=== PATIENT | female | born 1985 | race Caucasian/White ===

== ENCOUNTER 2018-03-14 10:04 | Outpatient (CLI) | payer OTHER, SELFPAY ==
[2018-03-15 10:20] LABS: Hepatitis C Ab w Rflx HCV PCR Negative (NEGAT)
[2018-03-15 10:28] LABS: Hepatitis B Surface Ag Negative (NEGAT)
[2018-03-15 10:42] LABS: HIV-1/2 Ag & Ab Screen Negative (NEGAT)
[2018-03-15 12:20] LABS: Syphilis Serology (RPR) Negative (Negative)
== END 2018-03-14 10:24 ==
PROVIDERS: PCP Nurse Practitioner Family; Visit Provider Obstetrics & Gynecology
DX: Z11.3 Encounter for screening for infections with a predominantly sexual mode of transmission (principal); Z11.4 Encounter for screening for human immunodeficiency virus [HIV]; Z11.59 Encounter for screening for other viral diseases; Z01.84 Encounter for antibody response examination
CPT/HCPCS: 36415; 86803; 87340; 87389; 86592

== ENCOUNTER 2018-03-14 11:11 | Outpatient (REF) | payer OTHER, SELFPAY ==
[2018-03-15 14:36] LABS: Chlamydia Result Negative; GC Result Negative; Specimen Description CERVIX
== END 2018-03-14 11:31 ==
LOC: LBN 11:11
PROVIDERS: PCP Nurse Practitioner Family; Visit Provider Obstetrics & Gynecology
DX: Z11.3 Encounter for screening for infections with a predominantly sexual mode of transmission (principal)
CPT/HCPCS: 87491; 87591

== ENCOUNTER 2018-04-03 11:50 | Outpatient (REF) | payer OTHER, SELFPAY ==
--- NOTE | 2018-04-03 11:15 | ENDOMET_PTH ---
PATIENT: Rahel Gilliam LOC: [facility] U#:[id number] AGE/SX: 32/F ROOM: RE04/03/[address]: Tramaine Oconnor MD : [id number] BED: DIS: 04/03/2018 SPEC #: [id number] RECD: 04/03/18 12:51 STATUS: [place] REQ #: [id number] SEAN: 04/03/18 11:[address]: Tramaine Oconnor DEPT: Surgical Specimen RECD BY: Blanca Montgomery ENTERED: 04/03/18 12:52 SP TYPE: Endomet OTHR DR: Yana Freeman APRN Tissues: 1 - ENDOMETRIUM BX/CURRETTE Procedures: GROSS AND MICRO LEVEL 4 Comments: [id number]
== END 2018-04-03 12:10 ==
LOC: LBN 11:50
PROVIDERS: PCP Nurse Practitioner Family; Visit Provider Obstetrics & Gynecology
DX: N85.8 Other specified noninflammatory disorders of uterus (principal); N93.8 Other specified abnormal uterine and vaginal bleeding
CPT/HCPCS: 88305

== ENCOUNTER 2019-01-18 10:31 | Outpatient (CLI) | payer OTHER, SELFPAY ==
[2019-01-18 13:36] LABS: ALT 24 U/L (14-59); AST 17 U/L (15-37); Albumin 3.2 g/dL (3.4-5.0); Alkaline Phosphatase 124 U/L (46-116); Anion Gap 11.2 mmol/L (3-11); BUN 9 mg/dL (7-18); Bilirubin, Total 0.3 mg/dL (0.2-1.0); CO2 25.8 mmol/L (21.0-32.0); CREATININE 0.73 mg/dL (0.55-1.02); Calcium 8.5 mg/dL (8.5-10.1); Chloride 106 mmol/L (98-107); Glucose 98 mg/dL (70-100); Potassium 4.2 mmol/L (3.5-5.1); Sodium 143 mmol/L (136-145); Total Protein 6.7 g/dL (6.4-8.2)
[2019-01-18 14:03] LABS: Hemoglobin A1C 5.6 % (4.5-6.2)
== END 2019-01-18 10:51 ==
PROVIDERS: PCP Nurse Practitioner Family; Visit Provider Nurse Practitioner Family
DX: E28.2 Polycystic ovarian syndrome (principal); Z68.43 Body mass index [BMI] 50.0-59.9, adult; F10.10 Alcohol abuse, uncomplicated
CPT/HCPCS: 36415; 80053; 83036

== ENCOUNTER 2019-02-23 15:55 | Emergency (ER) | payer OTHER, SELFPAY ==
[2019-02-23 15:57] VITALS: BP 148/80; PULSE 88; RESP 18; TEMP 36.8; O2SAT 98
--- NOTE | 2019-02-23 16:47 | W.ED.GENAD ---
Discharge Plan Disposition Patient Disposition: HOME Discharge Details Chief Complaint: EarProblem Clinical Impression: Embedded earring of left ear Primary Care Provider: Yana Freeman ED Provider: Domingo Alvarez Home Meds and New Rx's Prescriptions: New doxycycline hyclate 100 mg tablet 100 mg PO BID Qty: 9 RF: 0 Continued citalopram 20 mg tablet 20 mg PO DAILY Qty: 90 RF: 3 bupropion HCl [Wellbutrin XL] 150 mg tablet extended release 24 hr 150 mg PO QAM Qty: 90 RF: 3 ibuprofen 200 MG tablet 200 mg PO Q6H PRN RF: 0 norethindrone-ethin estradiol 0.4-35 mg-mcg tablet 1 tab PO DAILY Qty: 84 RF: 3 acetaminophen [Tylenol] 325 MG tablet 650 mg PO Q4H PRN PRNRF: 0 Discharge Instructions Additional Instructions: Please take antibiotic as prescribed. You received a dose today in the emergency department. Your next dose is tomorrow morning. Please take ibuprofen for pain. Please contact your primary care physician to arrange follow-up. Return to the ER for any worsening or new concerning symptoms. Referrals: Yana Freeman, DISABILITY COUNSELOR [Primary Care Provider] - Medical Decision Making 33-year-old female here with earring stud embedded in left earlobe. Patient provided verbal consent for hearing removal. Procedure note: Foreign body removal left earlobe Indication: Embedded foreign body with inflammation Consent: verbal Anesth: local - 2 ml lidocaine 1% injected Note: Area prepped with Betadine. Area anesthetized with local injection of lidocaine. A tiny incision was made with 15 blade over the anterior earring hole. Earring pushed through hole and removed intact. Complications: none Plan to treat with short course of antibiotic given recent discharge and to treat any early infection. Usual and customary discharge instructions were provided. HPI General Mode of arrival: ambulatory. Date/Time Provider Initiated Documentation: 02/23/19 16:01. Limitations to Documentation: no limitations. Information obtained by: patient. HPI Narrative: 33-year-old female presents with chief complaint of left earlobe embedded earring. Patient notes that she had her ear pierced about 6 weeks ago and woke up yesterday morning with earring embedded within her ear. She has had some discharge from the earring hole. No associated fever. Area is moderately painful. Related Data Home Medications Medication Instructions Recorded Confirmed ibuprofen 200 mg PO Q6H PRN tab-cap 02/27/15 02/23/19 acetaminophen [Tylenol] 650 mg PO Q4H PRN PRN tab 01/03/17 02/23/19 bupropion HCl 150 mg 24 hr tablet, 150 mg PO QAM #90 tab-cap 01/18/19 02/23/19 extended release citalopram 20 mg tablet 20 mg PO DAILY #90 tab-cap 01/18/19 02/23/19 norethindrone-ethinyl estradiol 1 tab PO DAILY #84 tab 02/07/19 02/23/19 0.4 mg-35 mcg tablet doxycycline hyclate 100 mg PO BID #9 tab 02/23/19 Previous Rx's Medication Instructions Recorded acetaminophen [Tylenol] 650 mg PO Q4H PRN PRN tab 01/03/17 bupropion HCl 150 mg 24 hr tablet, 150 mg PO QAM #90 tab-cap 01/18/19 extended release citalopram 20 mg tablet 20 mg PO DAILY #90 tab-cap 01/18/19 norethindrone-ethinyl estradiol 1 tab PO DAILY #84 tab 02/07/19 0.4 mg-35 mcg tablet doxycycline hyclate 100 mg PO BID #9 tab 02/23/19 Allergies Allergy/AdvReac Type Severity Reaction Status Date / Time penicillin V Allergy Mild Swelling, Verified 02/23/19 16:02 rash,itchy face especially around eyes. General Stated Complaint: EarProblem FRANCIE: 4 Review of Systems Constitutional Constitutional: Denies fever(s) ENT Ears, Nose, Mouth, and Throat: Reports as per [facility] Medical History ADHD (attention deficit hyperactivity disorder), combined type (Chronic) 01/19/2018 Psychiatry consult (Dr. Lucero) Alcohol consumption binge drinking (Chronic 04/28/15) BMI 50.0-59.9, adult (Chronic 10/28/14) Depression (Chronic 02/13/16) Side effects with sertraline Hepatic steatosis (Chronic 08/14/13) IFG (impaired fasting glucose) (Acute) PCOS (polycystic ovarian syndrome) (Chronic 10/28/14) Rx with Metformin. 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 [employer] Pets and animals: Yes Pets and animals: cat(s) Sexually active: Yes Current gender identity: female What type of physical activity do you participate in: regular exercise Duration: 15-30 minutes/day Frequency: 1-2 times per week Seatbelt use: sometimes 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 machines: No Working smoke detector in home: Yes Fire extinguisher in home: Yes Carbon monox detector in home: Yes Firearms in home: No Do you feel safe in your relationship?: Yes Female Reproductive History Menstrual control method: none History History 0 Para Hx # Term Pregnancies Multiple births Hx # Pregnancies Ectopic pregnancies AB induced Hx Number of Living Children AB spontaneous Exam Const General: cooperative and no acute distress HENMT Ears: other (Left earlobe with embedded earring, mildly swollen and tender) Mouth: moist mucous membranes Skin General skin exam: no rashes or lesions noted Course Vital Signs Vital signs: Vital Signs Temperature 36.8 C 02/23/19 15:57 Pulse 88 02/23/19 15:57 Respiratory Rate 18 02/23/19 15:57 Blood Pressure 148/80 H 02/23/19 15:57 Pulse Oximetry 98 02/23/19 15:57 Temperature 36.8 C 02/23/19 15:57 Temperature Source Skin 02/23/19 15:57 Pulse 88 02/23/19 15:57 Respiratory Rate 18 02/23/19 15:57 Respiratory Effort 02/23/19 16:02 Blood Pressure 148/80 H 02/23/19 15:57 Blood Pressure Position Sitting 02/23/19 15:57 Pulse Oximetry 98 02/23/19 15:57 Oxygen Delivery Method Room Air 02/23/19 15:57 Oxygen Flow Rate 0 02/23/19 15:57 Pain Level 3 02/23/19 16:38
[2019-02-23] MEDS: Doxycycline Hyclate 100 MG CAP PO (16:51)
== END 2019-02-23 17:02 | disposition home or self-care (01) ==
PROVIDERS: Emergency Provider Student in an Organized Health Care Education/Training Program; PCP Nurse Practitioner Family
DX: T16.2XXA Foreign body in left ear, initial encounter (principal)
CPT/HCPCS: 10120

== ENCOUNTER 2019-08-12 07:22 | Emergency (ER) | payer OTHER, SELFPAY ==
[2019-08-12 07:27] VITALS: BP 150/88; PULSE 136; RESP 20; TEMP 38.1; O2SAT 97
--- NOTE | 2019-08-12 07:30 | DI.CT_ITS ---
EXAM: CT ABDOMEN PELVIS W CLINICAL HISTORY: lower back and abdominal pain, fever TECHNIQUE: Imaging Protocol: Axial computed tomography images with coronal and sagittal reformatted images were created and reviewed CONTRAST MATERIAL: Intravenous: Omnipaque 350 Contrast volume:125 mL Oral: No COMPARISON: No exams were available for comparison FINDINGS: ABDOMEN: Lung Bases: Normal where visualized. Liver: Normal density. No measurable mass. Portal, Superior Mesenteric, and Splenic Veins: Unremarkable. Gallbladder and Biliary Tract: No radiodense calculus or dilation. Pancreas: Normal density, no abnormal calcifications or inflammatory process. Spleen: Normal. Adrenals: No masses seen. Kidneys: Normal size, contour and axis. No radiodense stones or obstructive uropathy. No masses seen. Abdominal Aorta: Abdominal portion non-dilated. Bowel: No obstruction or bowel wall thickening. Appendix is unremarkable. Peritoneal Cavity: No ascites, collection or mesenteric inflammatory response. Lymph Nodes: Within normal limits. Bones: Grade 3 spondylolysis of L5 on S1 which appears to be fused. Soft Tissues: Unremarkable. PELVIS: Bladder: Symmetric distention, no gross wall thickening. Reproductive Organs: Unremarkable as visualized. Lymph Nodes: Within normal limits. Bones: See above. IMPRESSION: Unremarkable CT scan of the abdomen and pelvis. RADIATION DOSE DELIVERED: Total DLP DATA REPOSITORY: All CT scans at this facility are submitted to the National Radiology Data Registry (NRDR) Dose Index Registry (DIR) with the [employer] (ACR). RADIATION OPTIMIZATION: All CT scans at this facility use at least one of these dose optimization te chniques: automated exposure control; mA and/or kV adjustment per patient size (includes targeted exa ms where dose is matched to clinical indication); or iterative reconstruction.
--- NOTE | 2019-08-12 07:34 | W.ED.GENAD ---
Discharge Plan Disposition Patient Disposition: HOME Condition: Improving Discharge Details Chief Complaint: Fever Clinical Impression: Fever, UTI (urinary tract infection), Herpes genitalis Primary Care Provider: Yana Freeman ED Provider: Larissa Nguyen Home Meds and New Rx's Prescriptions: New sulfamethoxazole-trimethoprim [Bactrim DS] 800-160 mg tablet 1 tab PO BID 14 Days Qty: 28 RF: 0 valacyclovir 1 gram tablet 1,000 mg PO BID 10 Days Qty: 20 RF: 0 Continued acetaminophen [Tylenol] 325 MG tablet 650 mg PO Q4H PRN PRNRF: 0 Discontinued ciprofloxacin HCl 250 mg tablet 250 mg PO RF: 0 Discharge Instructions Instructions: Genital Herpes Simplex (ED), Urinary Tract Infection in Women (ED), Fever in Adults (ED) Additional Instructions: Stop taking your Cipro. Drink plenty of fluids and get plenty of rest. Alternate tylenol and motrin as needed and directed for pain. Take the Bactrim and valacyclovir until finished. Call your primary care doctor and PROFESSOR OF JOURNALISM tomorrow to schedule follow-up appointments within the next 1 to 2 weeks. Return immediately to the emergency department if you develop any worsening or new concerning symptoms such as persistent fevers, worsening pain, change in bowel or bladder function. Medical Decision Making <Donn Carreno MD - Last Filed: 08/12/19 07:44> 33 yo female with hx of adhd, pcos, depression, who comes in with 2-3 days of burning with urination and low back pain and fever and sore throat. Denies any dyspnea, cough, chest pain, rashes, IVDU. She states that [facility] started her on cipro yesterday but she continues to have the lower back and some lower abdominal pain so came here. She is in no distress on arrival though is noted to have a fever and is tachycardic with dry membranes. She has erythema of posterior pharynx, midline uvula, no pain over hyoid or restricted neck movements. She does have bilateral cva tenderness, clear lungs, no murmurs or rashes on exam. Has mild lower abdominal discomfort on exam without guarding or rebound. Suspect pyeo but given worsening despite cuipro and evidence of dehydration will tx with fluids and obtain labs and image the abd/pelvis to eval for kidney stone among other pathology. No respiratory symptoms so doubt entities such as pna, flu, or covid19 pt signed out to oncoming provider pending lab and imaging results Differential Diagnosis Differential Diagnosis: pyelo, uti, kidney stone Medical Records Medical records reviewed: Yes I reviewed the patient's medical records. <Larissa Nguyen DO - Last Filed: 08/12/19 13:27> 0800 --please see Dr. Carreno's note for initial presentation, exam and plan. Case endorsed to follow-up on labs and imaging results and final disposition. Labs and imaging reviewed. Rapid strep negative. No signs of peritonsillar abscess and does not appear c/w exudative strep pharyngitis on exam. White blood cell count 11. Urinalysis notes 20-50 WBCs with trace leukocyte esterase and moderate epithelial cells. Culture done. CT negative for acute abdominal findings but notes grade 3 spondylolisthesis of L5 and S1. She is complaining of lower back pain which in the setting of fever and urinary symptoms will plan to treat for pyelonephritis. She did also complain of vaginal and rectal pain. Upon exam, appears consistent with herpetic ulcers noted to labia minora and perianal. Herpes PCR ordered. Do not suspect cervicitis or PID as she has no complaint of vaginal discharge or abdominal pain. She states she has been sexually active with 3 different partners of which she used protection with 2. She was offered cervical exam but declines stating she will follow-up with her PROFESSOR OF JOURNALISM for this if needed. She is advised to obtain additional testing if needed including HIV, syphilis and cervical cultures if indicated. She has taken 3 doses of Cipro, without any change in urinary symptoms, will switch to Bactrim for possible pyelonephritis. We will also treat herpes with antivirals and a syringe of lidocaine jelly was applied here. Patient was afebrile and her pain significantly improved. She was able to ambulate without difficulty. She had no focal deficits or cauda equina symptoms. Suspect her back pain could be due to either UTI/pyelonephritis or genital herpes with referred neuropathic pain. She was aware of her spondylolithesis and usually does not have pain with this. History and presentation not c/w epidural abscess. She is advised to follow-up with her primary care doctor and PROFESSOR OF JOURNALISM for reevaluation. Usual and customary return precautions given prior to discharge. After discharge, mom called who is a nurse questioning if she should be concerned about going to work with pt having a fever. Pt presentation did not appear c/w covid but in setting of fever and sore throat, an outpatient test was ordered. Medical Records Medical records reviewed: Yes I reviewed the patient's medical records. Imaging Data Radiologic Study: Radiologist's impression: CT Abdomen And Pelvis With Contrast Exam date and time: 08/12/2019 7:41 AM Age: 33 years old Clinical indication: Abdominal pain; Other: Abdominal and low back pain TECHNIQUE: Imaging protocol: Computed tomography of the abdomen and pelvis with intravenous contrast. COMPARISON: US PELVIS TRANSVAG 06/18/2013 3:57 PM FINDINGS: Liver: Normal. No mass. Gallbladder and bile ducts: Normal. No calcified stones. No ductal dilation. Pancreas: Normal. No ductal dilation. Spleen: Normal. No splenomegaly. Adrenals: Normal. No mass. Kidneys and ureters: Normal. No hydronephrosis. Stomach and bowel: Unremarkable. No obstruction. No mucosal thickening. Appendix: Normal appendix . Intraperitoneal space: Unremarkable. No free air. No significant fluid collection. Vasculature: Unremarkable. No abdominal aortic aneurysm. Lymph nodes: Unremarkable. No enlarged lymph nodes. Bladder: Unremarkable as visualized. Reproductive: Unremarkable as visualized. Bones/joints: Grade 3 spondylolisthesis of L5 on S1 . It appears fused. Series 7, image 95. Clinical correlation is recommended. Soft tissues: Unremarkable. IMPRESSION: 1. Normal appendix . 2. Grade 3 spondylolisthesis of L5 on S1 . It appears fused. Series 7, image 95. Clinical correlation is recommended. HPI <Donn Carreno MD - Last Filed: 08/12/19 07:44> General Mode of arrival: ambulatory. Date/Time Provider Initiated Documentation: 08/12/19 07:24. Limitations to Documentation: no limitations. Information obtained by: patient. History of Present Illness 33 year old F presents to the emergency department with the chief complaint of back pain and dysuria, described as moderate, Patient started experiencing this day(s) (2) and it has been constant. No relieving factors improve symptom(s), Patient notes fever/chills. Related Data Home Medications Medication Instructions Recorded Confirmed acetaminophen [Tylenol] 650 mg PO Q4H PRN PRN tab 01/03/17 08/12/19 sulfamethoxazole-trimethoprim 1 tab PO BID 14 Days #28 tab 08/12/19 [Bactrim DS] valacyclovir 1,000 mg PO BID 10 Days #20 tab 08/12/19 Previous Rx's Medication Instructions Recorded acetaminophen [Tylenol] 650 mg PO Q4H PRN PRN tab 01/03/17 sulfamethoxazole-trimethoprim 1 tab PO BID 14 Days #28 tab 08/12/19 [Bactrim DS] valacyclovir 1,000 mg PO BID 10 Days #20 tab 08/12/19 Allergies Allergy/AdvReac Type Severity Reaction Status Date / Time penicillin V Allergy Mild Swelling, Verified 08/12/19 07:41 rash,itchy face especially around eyes. General Stated Complaint: Fever FRANCIE: 3 Review of Systems <Donn Carreno MD - Last Filed: 08/12/19 07:44> All systems reviewed & are unremarkable except as noted in HPI and below Constitutional Constitutional: Denies weakness ENT Ears, Nose, Mouth, and Throat: Denies change in voice Cardiovascular Cardiovascular: Denies chest pain and Denies dyspnea Respiratory Respiratory: Denies cough and Denies dyspnea Gastrointestinal Gastrointestinal: Denies vomiting Neurologic Neurologic: Denies weakness Psychiatric Psychiatric: Denies depression PFSH <Donn Carreno MD - Last Filed: 08/12/19 07:44> Social History Smoking/Tobacco Use Status: Never Alcohol Intake: current Alcohol Intake frequency: a few times a week Drug use: Never Substance use type: does not use Adopted: No Caregiver/Support person: No Foster care: No 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 Pets and animals: Yes Pets and animals: cat(s) Sexually active: Yes Current gender identity: female What type of physical activity do you participate in: regular exercise Duration: 15-30 minutes/day Frequency: 1-2 times per week Seatbelt use: sometimes Drive intox or ride w/intox 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: No Working smoke detector in home: Yes Fire extinguisher in home: Yes Carbon monox detector in home: Yes Firearms in home: No Do you feel safe at home: Yes Do you feel safe in your relationship?: Yes Female Reproductive History Menstrual control method: none History History 0 Para Hx # Term Pregnancies Multiple births Hx # Pregnancies Ectopic pregnancies AB induced Hx Number of Living Children AB spontaneous Exam <Donn Carreno MD - Last Filed: 08/12/19 07:44> Const General: no acute distress Orientation: alert HENMT Head: normal to inspection Ears: external ears normal General nose exam: external nose normal Mouth: mucous membranes dry Eyes General: appearance normal, both eyes and all related structures Neck Neck: normal visual inspection Resp Effort & Inspection: normal respiratory effort and able to speak in complete sentences Cardio Jugular venous pressure: no JVD Rate: tachycardic GI Palpation: soft Skin General skin exam: no rashes or lesions noted Neuro General: patient alert and patient oriented x3 Extrem General: normal to inspection Psych Mental Status: mental status grossly normal Course <Donn Carreno MD - Last Filed: 08/12/19 07:44> Vital Signs Vital signs: Vital Signs Temperature 38.1 C H 08/12/19 07:27 Pulse 136 H 08/12/19 07:27 Respiratory Rate 20 08/12/19 07:27 Blood Pressure 150/88 H 08/12/19 07:27 Pulse Oximetry 97 08/12/19 07:27 Temperature 38.1 C H 08/12/19 07:27 Temperature Source Oral 08/12/19 07:27 Pulse 136 H 08/12/19 07:27 Respiratory Rate 20 08/12/19 07:27 Blood Pressure 150/88 H 08/12/19 07:27 Pulse Oximetry 97 08/12/19 07:27 Oxygen Delivery Method Room Air 08/12/19 07:27 Oxygen Flow Rate 0 08/12/19 07:27 Sign Out <Donn Carreno MD - Last Filed: 08/12/19 07:44> Sign Out Data: Sign Out Comment: follow up on labs and imaging results Last updated by Donn Carreno MD at 08/12/19 07:45
[2019-08-12 08:00] LABS: Lactate 1.4 mmol/L (0.6-1.4)
[2019-08-12] MEDS: Normal Saline 1,000 ML 1000 ML IV (08:00)
[2019-08-12 08:02] LABS: Abs Immature Grans 0.02 k/cumm (0.0-0.09); Absolute Basophil Count 0.02 k/cumm (0.0-0.2); Absolute Monocyte Count 0.75 k/cumm (0.11-0.7); Absolute Neutrophil Count 8.34 k/cumm (1.2-6.7); Basophils % 0.2; Eosinophils % 1.4; HCT 46.2 % (36.0-46.0); HGB 14.9 g/dL (12.0-15.5); Immature Grans % 0.2 %; Lymphocytes % 15.9; Mean Corp. HGB Concentration 32.3 g/dL (32.0-36.0); Mean Corpuscular Hemoglobin 24.6 pg (27.0-33.0); Mean Corpuscular Volume 76.4 fL (80-95); Mean Platelet Volume 10.7 fL (8.0-11.0); Monocytes % 6.8; Neutrophils % 75.5; Platelet Count 203 x1000/uL (130-400); RBC 6.05 m/cumm (4.00-5.20); RBC Distribution Width 14.8 % (11.7-14.6); White Blood Cell Count 11.04 k/cumm (4.4-10.8)
[2019-08-12 08:12] LABS: Absolute Eosinophil Count 0.15 k/cumm (0.0-0.7); Absolute Lymphocyte Count 1.76 k/cumm (1.2-3.4)
[2019-08-12 08:15] LABS: PTT Activated 26.5 sec (21.0-31.4); Prothrombin Time 9.9 sec (9.3-11.0)
[2019-08-12 08:21] LABS: Diff Comment RBC Morph Reviewed; Microcytosis 1+
[2019-08-12 08:26] LABS: ALT 72 U/L (14-59); AST 59 U/L (15-37); Albumin 3.6 g/dL (3.4-5.0); Alkaline Phosphatase 173 U/L (46-116); Anion Gap 8.3 mmol/L (3-11); BUN 9 mg/dL (7-18); Bilirubin, Direct 0.09 mg/dL (0.00-0.20); Bilirubin, Total 0.5 mg/dL (0.2-1.0); CO2 26.7 mmol/L (21.0-32.0); CREATININE 0.94 mg/dL (0.55-1.02); Calcium 8.6 mg/dL (8.5-10.1); Chloride 101 mmol/L (98-107); Glucose 122 mg/dL (74-106); Lipase 69 U/L (73-393); Magnesium 1.6 mg/dL (1.8-2.4); Potassium 3.7 mmol/L (3.5-5.1); Sodium 136 mmol/L (136-145); Total Protein 7.8 g/dL (6.4-8.2)
[2019-08-12 09:14] LABS: Bilirubin Negative (Negative); Blood Negative (Negative); Clarity Clear (Clear); Glucose Negative (Negative); Ketones Negative (Negative); Leukocyte Esterase Trace (Negative); Nitrite Negative (Negative); Urobilinogen 0.2 EU/dL (Up TO 0.2)
[2019-08-12] MEDS: Acetaminophen 500 MG TAB 1000 MG PO (09:23)
[2019-08-12] MEDS: Ketorolac 30 MG/ML VIAL IVP (09:23)
[2019-08-12 09:47] LABS: Bacteria Few HPF (Negative); C & S Indicated? C&S Done As Ordered; Casts Negative LPF (Negative); Crystals Negative HPF (Negative); Epithelial Cells Moderate HPF (Negative); Mucus Negative (Negative); RBC 0-2 HPF (0-2); WBC 20-50 HPF (0-5)
[2019-08-12] MEDS: Omnipaque 350 MG/ML 50 ML BTL IJ (10:01)
[2019-08-12] MEDS: Omnipaque 350 MG/ML 100 ML BTL IJ (10:01)
[2019-08-12] MEDS: Normal Saline - Diluent 50 ML VIAL IV (10:02)
[2019-08-12] MEDS: Normal Saline Flush 10 ML SYR IVP (10:02)
[2019-08-12 10:15] VITALS: BP 123/76; PULSE 103; RESP 17; TEMP 37.2; O2SAT 98
--- NOTE | 2019-08-12 10:51 | DI.VRAD_ITS ---
PROCEDURE INFORMATION: Exam: CT Abdomen And Pelvis With Contrast Exam date and time: 08/12/2019 7:41 AM Age: 33 years old Clinical indication: Abdominal pain; Other: Abdominal and low back pain TECHNIQUE: Imaging protocol: Computed tomography of the abdomen and pelvis with intravenous contrast. COMPARISON: US PELVIS TRANSVAG 06/18/2013 3:57 PM FINDINGS: Liver: Normal. No mass. Gallbladder and bile ducts: Normal. No calcified stones. No ductal dilation. Pancreas: Normal. No ductal dilation. Spleen: Normal. No splenomegaly. Adrenals: Normal. No mass. Kidneys and ureters: Normal. No hydronephrosis. Stomach and bowel: Unremarkable. No obstruction. No mucosal thickening. Appendix: Normal appendix . Intraperitoneal space: Unremarkable. No free air. No significant fluid collection. Vasculature: Unremarkable. No abdominal aortic aneurysm. Lymph nodes: Unremarkable. No enlarged lymph nodes. Bladder: Unremarkable as visualized. Reproductive: Unremarkable as visualized. Bones/joints: Grade 3 spondylolisthesis of L5 on S1 . It appears fused. Series 7, image 95. Clinical correlation is recommended. Soft tissues: Unremarkable. IMPRESSION: 1. Normal appendix . 2. Grade 3 spondylolisthesis of L5 on S1 . It appears fused. Series 7, image 95. Clinical correlation is recommended. Dictated and Authenticated by: Irvin Broderick MD. Ordering:DEMETRIO Pop MD
[2019-08-12] MEDS: valACYclovir 1,000 MG TAB 1000 MG PO (11:34)
[2019-08-12] MEDS: Sulfameth/Trimeth DS TAB 1 TAB PO (11:34)
[2019-08-12] MEDS: Lidocaine 2% Jelly 6 ML SYR TP (11:34)
[2019-08-14 01:23] LABS: HSV 1 PCR, Blood Negative (Negative); HSV 2 PCR, Blood Negative (Negative)
== END 2019-08-12 11:46 | disposition home or self-care (01) ==
PROVIDERS: Emergency Medicine; Emergency Provider Physician Assistant; PCP Nurse Practitioner Family
DX: N10 Acute pyelonephritis (principal); A60.09 Herpesviral infection of other urogenital tract; J02.9 Acute pharyngitis, unspecified; R50.9 Fever, unspecified
CPT/HCPCS: 36415; 80053; 81025; 83690; 87040; 87529; 87880; 96361; 96374; 99285; 74177; 81003; 81015; 82248; 83605; 83735; 85025; 85610; 85730; 87081; 87086; 99284; J1885; J3490; Q9967

== ENCOUNTER 2019-08-14 08:43 | Outpatient (CLI) | payer OTHER, SELFPAY ==
[2019-08-15 15:23] LABS: COVID-19 RT-PCR Result NEGATIVE (Negative)
== END 2019-08-14 09:03 ==
PROVIDERS: PCP Nurse Practitioner Family; Visit Provider Physician Assistant
DX: Z11.59 Encounter for screening for other viral diseases (principal)
CPT/HCPCS: U0003

== ENCOUNTER 2019-08-22 22:36 | Outpatient (REF) | payer OTHER, SELFPAY ==
[2019-08-24 19:40] LABS: HSV 1 PCR, Varies Negative (Negative); HSV 2 PCR, Varies Negative (Negative); Herpes Source VAGINA
== END 2019-08-22 22:56 ==
LOC: LBN 22:36
PROVIDERS: PCP Nurse Practitioner Family; Visit Provider Obstetrics & Gynecology
DX: N89.8 Other specified noninflammatory disorders of vagina (principal); Z11.59 Encounter for screening for other viral diseases
CPT/HCPCS: 87491; 87529; 87591; 87480; 87510; 87660

== ENCOUNTER 2019-08-28 02:30 | Outpatient (CLI) | payer OTHER, SELFPAY ==
--- NOTE | 2019-08-28 08:00 | DI.RAD_ITS ---
EXAM: XR LUMBAR SPINE COMPLETE CLINICAL HISTORY: acute on chronic LBP h/o spondylolisthesis, s/p surgery.m54.5,m43.10 TECHNIQUE: COMPARISON: US PELVIS TRANSVAG from 06/18/[address] ABDOMEN PELVIS W from 08/12/[address] ABDOMEN PELVIS W from 08/12/2019 FINDINGS: Five views were obtained. No prior films available for comparison. There is marked deformity at the L5-S1 level which appears to represent a healed spondylolysis/spondylolisthesis with possible community service officer ior fusion. No acute fracture identified. Remainder of the lumbar spine is unremarkable in appearan ce with the exception minimal endplate and facet hypertrophic changes. Alignment appears unchanged c omparison with prior abdominal and pelvic CT of August 11. Intervertebral disc spaces appear fairly w ell maintained with the exception of L5-S1 where there is vertebral fusion. IMPRESSION: Severe healed deformity at L5-S1, no acute process. If there is a clinical suspicion neural impingem ent, instability, or infection, additional evaluation with MR may be considered.
== END 2019-08-28 02:50 ==
PROVIDERS: PCP Nurse Practitioner Family; Visit Provider Nurse Practitioner Family
DX: M54.5 Low back pain (principal); G89.29 Other chronic pain; M43.10 Spondylolisthesis, site unspecified
CPT/HCPCS: 72110

== ENCOUNTER 2019-10-13 08:55 | Emergency (ER) | payer OTHER, SELFPAY ==
[2019-10-13 09:05] VITALS: BP 162/87; PULSE 82; RESP 18; TEMP 36.9; O2SAT 97
--- NOTE | 2019-10-13 09:15 | W.ED.GENAD ---
Discharge Plan Disposition Patient Disposition: HOME Discharge Details Chief Complaint: Urinary Clinical Impression: UTI (urinary tract infection) Primary Care Provider: Yana Freeman ED Provider: Christiano Sanford Home Meds and New Rx's Prescriptions: New nitrofurantoin monohyd/m-cryst [Macrobid] 100 mg capsule 100 mg PO Q12H 7 Days Qty: 14 RF: 0 Continued ibuprofen 800 mg tablet 800 mg PO Q8H RF: 0 acetaminophen [Tylenol] 325 MG tablet 650 mg PO Q4H PRN PRNRF: 0 Discharge Instructions Instructions: Urinary Tract Infection in Women (ED) Additional Instructions: Macrobid as directed. Plenty of fluids to avoid dehydration. Gdez-fze-rhbzfdh medication such as Azo for symptomatic control. Please watch for new or worsening symptoms and return to the ER for any concerns. I would like you to reach out to your [facility] [employer] provider on Tuesday for prompt outpatient reevaluation and your ongoing woman's wellness needs. Medical Decision Making 34-year-old female presenting for urinary frequency, dysuria, mild hematuria that began late last night-early this morning. She reports mild nausea but unsure whether this is related to her urinary symptoms are secondary to her lack of sleep, alcohol use and mushroom intake. She appears well, nontoxic. She is afebrile, denies vaginal bleeding or discharge, denies STD exposure. Will obtain urinalysis and POC Dr. Alvarez in room to evaluate patient, please see his note Negative , urinalysis positive for UTI. Culture pending. Given the penicillin allergy will initiate Macrobid. Patient will follow-up with her [facility]ER HEL[facility] regarding her ongoing woman's health needs. We did discuss safe sex practices Medical Records Medical records reviewed: Yes I reviewed the patient's medical records. Lab Data Lab results reviewed: Yes I reviewed the patient's lab results. Lab results narrative: 10/13/19 09:04 Urine - Reflex from Ua Urine Culture - Pending Laboratory Tests Range/Units 10/13/19 09:04 Urine Color (Yellow) Red Urine Clarity (Clear) Sl cloudy Urine pH (5-8) 6.5 Ur Specific [place] (1.005-1.025) 1.010 Urine Protein (Negative) mg/dL 100 H Urine Ketones (Negative) mg/dL Negative Urine Blood (Negative) Large H Urine Nitrite (Negative) Negative Urine Bilirubin (Negative) Negative Urine Urobilinogen (Up TO 0.2) EU/dL 0.2 Ur Leukocyte Esterase (Negative) Moderate H Urine RBC (0-2) HPF >50 H Urine WBC (0-5) HPF >50 H Ur Epithelial Cells (Negative) HPF Few Urine Crystals (Negative) HPF Negative Urine Bacteria (Negative) HPF Moderate Urine Casts (Negative) LPF Negative Urine Mucus (Negative) Negative Ur Culture Indicated? Yes Urine Glucose (Negative) mg/dL Negative HPI General Mode of arrival: ambulatory. Date/Time Provider Initiated Documentation: 10/13/19 09:05. Limitations to Documentation: no limitations. Information obtained by: patient. HPI Narrative: This is a 34-year-old female with history of PCOS, depression, low back pain, obesity, presenting with urinary symptoms such as frequency, burning, potentially blood-tinged that began sometime late last night early this morning. She does report mild nausea but unsure whether or not this is because yesterday was her birthday, she has not gone to sleep yet because she was up celebrating her birthday with alcohol and consuming mushrooms. She denies any other symptoms such as fever, chest pain, shortness of breath, abdominal pain, vomiting, vaginal bleeding or discharge. She denies diarrhea or constipation. She does report that she is sexually active with multiple partners, does not always wear protection. She reports that to the best of her knowledge she has not been exposed to any STDs. She cannot tell me when her last menstrual cycle was because she is very irregular. Related Data Home Medications Medication Instructions Recorded Confirmed acetaminophen [Tylenol] 650 mg PO Q4H PRN PRN tab 01/03/17 10/13/19 ibuprofen 800 mg tablet 800 mg PO Q8H 08/22/19 10/13/19 nitrofurantoin monohyd/m-cryst 100 mg PO Q12H 7 Days #14 cap 10/13/19 [Macrobid] Previous Rx's Medication Instructions Recorded acetaminophen [Tylenol] 650 mg PO Q4H PRN PRN tab 01/03/17 nitrofurantoin monohyd/m-cryst 100 mg PO Q12H 7 Days #14 cap 10/13/19 [Macrobid] Allergies Allergy/AdvReac Type Severity Reaction Status Date / Time penicillin V Allergy Mild Swelling, Verified 10/13/19 09:12 rash,itchy face especially around eyes. General Stated Complaint: Urinary FRANCIE: 4 Review of Systems Constitutional Constitutional: Denies fever(s) Cardiovascular Cardiovascular: Denies chest pain and Denies dyspnea Respiratory Respiratory: Denies cough and Denies dyspnea Gastrointestinal Gastrointestinal: Denies abdominal pain, Reports nausea and Denies vomiting Genitourinary Genitourinary: Reports hematuria, Reports dysuria, Denies pelvic pain and Denies vaginal discharge Musculoskeletal Musculoskeletal: Reports back pain (Chronic) PFSH Medical History ADHD (attention deficit hyperactivity disorder), combined type (Chronic) 01/19/2018 Psychiatry consult (Dr. Lucero) Alcohol consumption binge drinking (Chronic 04/28/15) BMI 50.0-59.9, adult (Chronic 10/28/14) Depression (Chronic 02/13/16) Side effects with sertraline Hepatic steatosis (Chronic 08/14/13) IFG (impaired fasting glucose) (Acute) Low back pain (Acute) PCOS (polycystic ovarian syndrome) (Chronic 10/28/14) Rx with Metformin. 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 Pets and animals: Yes Pets and animals: cat(s) Sexually active: Yes Current gender identity: female What type of physical activity do you participate in: regular exercise Duration: 15-30 minutes/day Frequency: 1-2 times per week Seatbelt use: sometimes Drive intox or ride w/intox professional driver: No Working smoke detector in home: Yes Fire extinguisher in home: Yes Carbon monox detector in home: Yes Firearms in home: No Do you feel safe at home: Yes Do you feel safe in your relationship?: Yes Female Reproductive History Menstrual control method: none History History 0 Para Hx # Term Pregnancies Multiple births Hx # Pregnancies Ectopic pregnancies AB induced Hx Number of Living Children AB spontaneous Exam Const General: cooperative, healthy appearing, comfortable and no acute distress Orientation: alert, awake and oriented x3 HENMT Head: normal to inspection, normocephalic and atraumatic Mouth: moist mucous membranes Eyes Conjunctivae: conjunctivae normal Sclera: sclerae normal Neck Neck: normal visual inspection, full ROM, trachea midline and supple Resp Effort & Inspection: normal respiratory effort and able to speak in complete sentences Auscultation: clear to auscultation bilaterally Cardio Rate: regular rate Rhythm: regular rhythm GI Palpation: soft and nontender Back/Spine/Pelvis Back: No back tenderness Skin General skin exam: no rashes or lesions noted Neuro General: patient alert, patient awake, moves all extremities and no focal motor deficits Gait: normal gait Sensory Exam: no sensory deficits noted Psych Appearance: grossly normal Mental Status: mental status grossly normal Course Vital Signs Vital signs: Vital Signs Temperature 36.9 C 10/13/19 09:05 Pulse 82 10/13/19 09:05 Respiratory Rate 18 10/13/19 09:05 Blood Pressure 162/87 H 10/13/19 09:05 Pulse Oximetry 97 10/13/19 09:05 Temperature 36.9 C 10/13/19 09:05 Temperature Source Skin 10/13/19 09:05 Pulse 82 10/13/19 09:05 Respiratory Rate 18 10/13/19 09:05 Respiratory Effort Non-Labored 10/13/19 09:12 Blood Pressure 162/87 H 10/13/19 09:05 Blood Pressure Position Sitting 10/13/19 09:05 Pulse Oximetry 97 10/13/19 09:05 Oxygen Delivery Method Room Air 10/13/19 09:05 Oxygen Flow Rate 0 10/13/19 09:05 Pain Level 6 10/13/19 09:13
[2019-10-13 09:20] VITALS: BP 148/83
[2019-10-13 09:21] LABS: Bilirubin Negative (Negative); Blood Large (Negative); Clarity Sl Cloudy (Clear); Glucose Negative (Negative); Ketones Negative (Negative); Leukocyte Esterase Moderate (Negative); Nitrite Negative (Negative); Urobilinogen 0.2 EU/dL (Up TO 0.2); pH 6.5 (5-8)
[2019-10-13 09:29] LABS: Bacteria Moderate HPF (Negative); C & S Indicated? Yes; Casts Negative LPF (Negative); Crystals Negative HPF (Negative); Epithelial Cells Few HPF (Negative); Mucus Negative (Negative); RBC >50 HPF (0-2); WBC >50 HPF (0-5)
== END 2019-10-13 09:39 | disposition home or self-care (01) ==
PROVIDERS: Emergency Provider Physician Assistant; PCP Nurse Practitioner Family
DX: N39.0 Urinary tract infection, site not specified (principal)
CPT/HCPCS: 81025; 87077; 99283; 81003; 81015; 87086; 87186

== ENCOUNTER 2019-12-10 16:13 | Outpatient (REF) | payer OTHER, SELFPAY | END 2019-12-10 16:33 | LOC: LBN 16:13 | PROVIDERS: PCP Nurse Practitioner Family; Visit Provider Obstetrics & Gynecology | DX: B37.3 Candidiasis of vulva and vagina (principal); B96.89 Other specified bacterial agents as the cause of diseases classified elsewhere | CPT/HCPCS: 87480; 87510; 87660 ==

== ENCOUNTER 2020-03-12 01:29 | Outpatient (CLI) | payer OTHER, SELFPAY ==
[2020-03-12 09:13] LABS: Abs Immature Grans 0.02 10^3/uL (0.0-0.06); Absolute Basophil Count 0.04 10^3/uL (0.0-0.2); Absolute Eosinophil Count 0.19 10^3/uL (0.0-0.7); Absolute Lymphocyte Count 2.48 10^3/uL (1.2-3.4); Absolute Monocyte Count 0.57 10^3/uL (0.1-0.8); Absolute Neutrophil Count 5.53 10^3/uL (1.2-6.7); Basophils % 0.5; Eosinophils % 2.2; HCT 47.3 % (36.0-46.0); HGB 14.8 g/dL (11.2-15.7); Immature Grans % 0.2; Lymphocytes % 28.1; MCH 25.5 pg (27.0-33.0); MCHC 31.3 % (32.0-36.0); MCV 81.4 fL (80-95); MPV 10.6 fL (8.0-11.0); Monocytes % 6.5; Neutrophils % 62.5; Nucleated RBC 0 %; Platelet Count 213 10^3/uL (130-400); RBC 5.81 10^6/uL (3.93-5.22); RDW 14.6 % (11.7-14.6); RDW-SD 42.7 fL; WBC 8.83 10^3/uL (4.4-10.8)
[2020-03-12 09:57] LABS: ALT 31 U/L (14-59); AST 19 U/L (15-37); Albumin 3.8 g/dL (3.4-5.0); Alkaline Phosphatase 152 U/L (46-116); Anion Gap 8.6 mmol/L (3-11); BUN 11 mg/dL (7-18); Bilirubin, Total 0.5 mg/dL (0.2-1.0); CO2 29.4 mmol/L (21.0-32.0); CREATININE 0.86 mg/dL (0.55-1.02); Calcium 8.4 mg/dL (8.5-10.1); Calculated LDL 140 mg/dL (<100); Chloride 106 mmol/L (98-107); Cholesterol 214 mg/dL (<200); Glucose 95 mg/dL (74-106); HDL Cholesterol 29 mg/dL (40-60); Potassium 4.1 mmol/L (3.5-5.1); Sodium 144 mmol/L (136-145); Triglyceride 225 mg/dL (<150)
[2020-03-12 10:58] LABS: Hemoglobin A1C 5.7 % (<5.7)
[2020-03-13 08:59] LABS: HBs Antibody, Quant 21.8 mIU/mL (See Note); Hepatitis B Surface Ab Positive (See Note)
[2020-03-13 09:49] LABS: HIV-1/2 Ag & Ab Screen Negative (Negative)
[2020-03-13 10:12] LABS: Hepatitis C Ab w Rflx HCV PCR Negative (Negative)
[2020-03-13 11:25] LABS: Syphilis Serology (RPR) Negative (Negative)
== END 2020-03-12 01:49 ==
PROVIDERS: Obstetrics & Gynecology; PCP Nurse Practitioner Family; Visit Provider Nurse Practitioner Family
DX: K76.0 Fatty (change of) liver, not elsewhere classified (principal); E78.5 Hyperlipidemia, unspecified; R73.01 Impaired fasting glucose; R74.8 Abnormal levels of other serum enzymes; Z11.3 Encounter for screening for infections with a predominantly sexual mode of transmission; Z11.4 Encounter for screening for human immunodeficiency virus [HIV]; Z11.59 Encounter for screening for other viral diseases
CPT/HCPCS: 36415; 80053; 80061; 86706; 86803; 87389; 83036; 85025; 85610; 86592

== ENCOUNTER 2020-04-08 15:29 | Outpatient (REF) | payer OTHER, SELFPAY ==
--- NOTE | 2020-04-08 14:30 | PAPFT_PTH ---
PATIENT: Rahel Gilliam LOC: [facility] U#:[id number] AGE/SX: 34/F ROOM: RE04/08/[address]: OSVALDO Kraft : 1985 BED: DIS: 04/08/2020 SPEC #: [id number] RECD: 04/08/20 18:27 STATUS: [facility] REJosse #: [id number] SEAN: 04/08/20 14:[address]: Brandy Lynne [facility] Cytology RECD BY: Blanca Montgomery ENTERED: 04/08/20 18:28 SP TYPE: PAPFT OTHR DR: Yana Freeman APRN Tissues: 1 - CX/ENDOCX FOR PAP SMEARS Procedures: PAP THIN PREP/[facility] Screening HPV DNA PROBE Comments: [id number]
[2020-04-10 15:45] LABS: Chlamydia Result Negative (Negative); GC Result Negative (Negative)
== END 2020-04-08 15:49 ==
LOC: LBN 15:29
PROVIDERS: PCP Nurse Practitioner Family; Visit Provider Nurse Practitioner Family
DX: Z11.3 Encounter for screening for infections with a predominantly sexual mode of transmission (principal); Z12.4 Encounter for screening for malignant neoplasm of cervix; Z11.51 Encounter for screening for human papillomavirus (HPV); R87.810 Cervical high risk human papillomavirus (HPV) DNA test positive
CPT/HCPCS: 87491; 87591; 88142; 87624

== ENCOUNTER 2020-04-25 01:39 | Outpatient (CLI) | payer OTHER, SELFPAY ==
[2020-04-28 11:57] LABS: HSV Type 1 Ab, IgG Negative (Negative); HSV Type 2 Ab, IgG Positive (Negative)
== END 2020-04-25 01:59 ==
PROVIDERS: PCP Nurse Practitioner Family; Visit Provider Nurse Practitioner Family
DX: Z11.3 Encounter for screening for infections with a predominantly sexual mode of transmission (principal)
CPT/HCPCS: 36415; 80053; 80061; 83036; 85025; 85610; 86695; 86696

== ENCOUNTER 2021-02-18 14:09 | Outpatient (REF) | payer OTHER, SELFPAY ==
[2021-02-20 14:52] LABS: Chlamydia Result Negative (Negative); GC Result Negative (Negative)
== END 2021-02-18 14:10 | disposition home or self-care (01) ==
LOC: LBN 14:09
PROVIDERS: PCP Nurse Practitioner Family; Visit Provider Obstetrics & Gynecology
DX: Z11.3 Encounter for screening for infections with a predominantly sexual mode of transmission (principal)
CPT/HCPCS: 87491; 87591

== ENCOUNTER 2021-03-03 02:50 | Outpatient (CLI) | payer OTHER, SELFPAY ==
[2021-03-03 07:32] LABS: Abs Immature Grans 0.03 10^3/uL (0.0-0.06); Absolute Basophil Count 0.02 10^3/uL (0.0-0.2); Absolute Eosinophil Count 0.19 10^3/uL (0.0-0.7); Absolute Lymphocyte Count 2.81 10^3/uL (1.2-3.4); Absolute Monocyte Count 0.54 10^3/uL (0.1-0.8); Absolute Neutrophil Count 4.68 10^3/uL (1.2-6.7); Basophils % 0.2; Eosinophils % 2.3; HCT 44.9 % (36.0-46.0); HGB 14.3 g/dL (11.2-15.7); Immature Grans % 0.4; MCH 26.4 pg (27.0-33.0); MCHC 31.8 % (32.0-36.0); MPV 9.9 fL (8.0-11.0); Monocytes % 6.5; Neutrophils % 56.6; Nucleated RBC 0 %; Platelet Count 187 10^3/uL (130-400); RBC 5.41 10^6/uL (3.93-5.22); RDW 12.9 % (11.7-14.6); RDW-SD 38.6 fL; WBC 8.27 10^3/uL (4.4-10.8)
[2021-03-03 07:41] LABS: Prothrombin Time 10.3 sec (9.3-11.0)
[2021-03-03 08:51] LABS: ALT 28 U/L (14-59); AST 16 U/L (15-37); Albumin 3.5 g/dL (3.4-5.0); Alkaline Phosphatase 137 U/L (46-116); Anion Gap 7.9 mmol/L (3-11); BUN 7 mg/dL (7-18); Bilirubin, Total 0.6 mg/dL (0.2-1.0); CO2 29.1 mmol/L (21.0-32.0); CREATININE 0.6 mg/dL (0.55-1.02); Calcium 8.2 mg/dL (8.5-10.1); Chloride 104 mmol/L (98-107); Glucose 118 mg/dL (74-106); Potassium 3.6 mmol/L (3.5-5.1); Sodium 141 mmol/L (136-145); Total Protein 6.3 g/dL (6.4-8.2)
[2021-03-04 11:31] LABS: Hepatitis C Ab w Rflx HCV PCR Negative (Negative)
[2021-03-04 11:44] LABS: HIV-1/2 Ag & Ab Screen Negative (Negative)
[2021-03-04 12:51] LABS: Syphilis Serology (RPR) Negative (Negative)
[2021-03-04 16:22] LABS: GGT 33 U/L (5-55)
[2021-03-05 20:41] LABS: Vitamin D 25 Total 14.7 ng/mL (30-100)
[2021-03-09 11:40] LABS: Parathyroid Hormone,Intact 77 pg/mL (19-88)
== END 2021-03-03 02:51 | disposition home or self-care (01) ==
LOC: LBO 02:50
PROVIDERS: PCP Nurse Practitioner Family; Visit Provider Obstetrics & Gynecology
DX: K76.0 Fatty (change of) liver, not elsewhere classified; R74.8 Abnormal levels of other serum enzymes; R79.89 Other specified abnormal findings of blood chemistry; Z11.4 Encounter for screening for human immunodeficiency virus [HIV]; Z11.59 Encounter for screening for other viral diseases
CPT/HCPCS: 36415; 80053; 82306; 86803; 87389; 82977; 83970; 85025; 85610; 86592

== ENCOUNTER 2021-04-30 10:34 | Outpatient (REF) | payer OTHER, SELFPAY ==
--- NOTE | 2021-04-30 09:00 | PAPFT_PTH ---
PATIENT: Rahel Gilliam LOC: [facility] U#:[id number] AGE/SX: 35/F ROOM: RE04/30/[address]: OSVALDO Kraft : 1985 BED: DIS: 04/30/2021 SPEC #: [id number] RECD: 04/30/21 12:46 STATUS: FRANKLIN REJosse #: [id number] SEAN: 04/30/21 09:[address]: Brandy Lynne DEPT: [facility] Cytology RECD BY: Blanca Montgomery ENTERED: 04/30/21 12:46 SP TYPE: PAPFT OTHR DR: Yana Freeman APRN Tissues: 1 - CX/ENDOCX FOR PAP SMEARS Procedures: PAP THIN PREP/[facility] Screening HPV DNA PROBE Comments: [id number]
== END 2021-04-30 10:35 | disposition home or self-care (01) ==
LOC: LBN 10:34
PROVIDERS: PCP Nurse Practitioner Family; Visit Provider Nurse Practitioner Family
DX: Z12.4 Encounter for screening for malignant neoplasm of cervix (principal); Z11.51 Encounter for screening for human papillomavirus (HPV); R87.810 Cervical high risk human papillomavirus (HPV) DNA test positive
CPT/HCPCS: 88142; 87624

== ENCOUNTER 2021-05-28 10:14 | Outpatient (REF) | payer OTHER, SELFPAY ==
--- NOTE | 2021-05-28 09:00 | ENDO_PTH ---
PATIENT: Rahel Gilliam LOC: [facility] U#:[id number] AGE/SX: 35/F ROOM: RE05/28/[address]: Maegan Martin DO : 1985 BED: DIS: 05/28/2021 SPEC #: [id number] RECD: 05/28/21 12:47 STATUS: [place]LIN REQ #: [id number] SEAN: 05/28/21 09:[address]: Maegan Martin DEPT: Surgical Specimen RECD BY: Blanca Montgomery ENTERED: 05/28/21 12:48 SP TYPE: Endo OTHR DR: Yana Freeman APRN Tissues: 1 - ENDOCERVICAL BX/CURRETTE Procedures: GROSS AND MICRO LEVEL 4 Comments: [id number]
== END 2021-05-28 10:15 | disposition home or self-care (01) ==
LOC: LBN 10:14
PROVIDERS: PCP Nurse Practitioner Family; Visit Provider Obstetrics & Gynecology
DX: Z87.42 Personal history of other diseases of the female genital tract (principal)
CPT/HCPCS: 88305

== ENCOUNTER 2021-06-15 01:04 | Observation (INO) | payer OTHER, SELFPAY ==
[2021-06-15] VITALS (19 sets, daily range): BP systolic 112–188; BP diastolic 62–91; PULSE 59–95; RESP 12–19; TEMP 36.2–36.7; O2SAT 92–98; BMI 54.2
--- NOTE | 2021-06-15 01:15 | DI.CT_ITS ---
Exam(s) CT ABDOMEN PELVIS W EXAM: CT ABDOMEN PELVIS W CLINICAL HISTORY: RLQ abdominaol tenderness, PCOS, vag bleeding. TECHNIQUE: Imaging Protocol: Axial computed tomography images with coronal and sagittal reformatted images were created and reviewed CONTRAST MATERIAL: Intravenous: Omnipaque 100cc Oral: None COMPARISON: CT CT ABDOMEN PELVIS W from 08/12/2019 FINDINGS: VISUALIZED LUNG BASES: No nodules nor pleural effusions evident. ABDOMEN: There is no ascites. LIVER: Hepatic steatosis noted. No focal hepatic lesions. The intrahepatic bile ducts are not dilat ed GALLBLADDER/BILIARY: No obvious gallbladder pathology. CBD is not dilated. PANCREAS: No evidence of pancreatic mass nor dilatation of the pancreatic duct. SPLEEN: Spleen is not enlarged. No obvious intrasplenic lesions. Splenic and portal veins are paten t. ADRENALS: There are no significant adrenal masses. KIDNEYS:There is a small cyst in the inferior pole region right kidney again noted, measuring 8 lora meters. No other focal renal findings. No solid renal masses. No calculi nor hydronephrosis.. ABDOMINAL AORTA: Abdominal aorta is not enlarged. LYMPH NODES:There is no retroperitoneal nor paraaortic adenopathy. ABDOMINAL WALL: No evidence of significant anterior abdominal wall nor inguinal hernia. GI: There is no evidence of bowel obstruction, free air, nor abscess. PELVIS: GI: The appendix is widened to 1.4 cm which is significantly wider than on the previous CT scan of 2019. Although there is still air within the appendix, this retrocecal appendix does appears sligh tly thickened. Suspect developing appendicitis, despite absence of periappendiceal streaking.No evid ence of sigmoid diverticulitis. LYMPH NODES: There is no intrapelvic nor inguinal adenopathy. REPRODUCTIVE: Uterus size is normal. Addition density on the right side of the uterus is probably a fibroid, unchanged in size. Above this level is a cyst measuring 5 by 4.3 by 5 cm, appearing to be i n the right ovary. Left ovary appears unremarkable. No free fluid in the cul-de-sac URINARY BLADDER: No calculi nor obvious masses evident OSSEOUS: Sclerotic density on the iliac side of both sacroiliac joints, unchanged. No SI joint ankyl osis. Also again noted is significant anterolisthesis L5 upon S1, appearing fused. There is advance d vertical foraminal stenosis bilaterally at this level (L5-S1). IMPRESSION: 1. Compared to the prior CT scan of July 2019 the retrocecal appendix is now significant to diameter o f 1.4 cm. These findings are suspicious for appendicitis, despite absence of prominent periappendice al streaking, no obvious appendicoliths,, and the remaining presence of some air within the lumen of the appendix. Retrocecal position of the appendix is unchanged from the prior CT scan. 2. There is a 5 cm cyst in the high right adnexa which is a right ovarian cyst. The left adnexa appe ars unremarkable. No free fluid. 3. Hepatic steatosis evident. No evidence of focal hepatic lesions. 4. Small sub cm benign cyst in the inferior pole right kidney. RADIATION DOSE DELIVERED: 2,117.43mGy.cm Total DLP DATA REPOSITORY: All CT scans at this facility are submitted to the National Radiology Data Registry (NRDR) Dose Index Registry (DIR) with the [employer] (ACR). RADIATION OPTIMIZATION: All CT scans at this facility use at least one of these dose optimization te chniques: automated exposure control; mA and/or kV adjustment per patient size (includes targeted exa ms where dose is matched to clinical indication); or iterative reconstruction.
[2021-06-15 01:25] LABS: Bilirubin Negative (Negative); Blood Large (Negative); Clarity Cloudy (Clear); Glucose Negative (Negative); Ketones Negative (Negative); Leukocyte Esterase Small (Negative); Nitrite Negative (Negative); Specific Gravity 1.025 (1.005-1.025); Urobilinogen 0.2 EU/dL (Up TO 0.2); pH 6.5 (5-8)
--- NOTE | 2021-06-15 01:26 | W.ED.GENAD ---
Discharge Plan Disposition Patient Disposition: [facility] INPATIENT Condition: Stable Discharge Details Clinical Impression: Acute appendicitis, Ovarian cyst Primary Care Provider: Yana Freeman ED Provider: Brodie Marino Home Meds and New Rx's Prescriptions: No Action ibuprofen 800 mg tablet 800 mg PO Q8H 0RF valacyclovir [Valtrex] 500 mg tablet 500 mg PO BID Qty: 6 3RF bupropion HCl [Wellbutrin XL] 150 mg tablet extended release 24 hr 150 mg PO QAM Qty: 90 3RF citalopram 20 mg tablet 20 mg PO DAILY Qty: 90 3RF acetaminophen [Tylenol] 325 MG tablet 650 mg PO Q4H PRN PRN0RF multivitamin [Multiple Vitamin] Tablet 1 tab PO DAILY 0RF cholecalciferol (vitamin D3) [Vitamin D3] 10 mcg (400 unit) Capsule 10 mcg PO DAILY 0RF Medical Decision Making This is a 35-year-old female with a past medical history of a BMI of 34, PCOS, hepatic steatosis, depression, spondylolisthesis and previous back surgery, who presents today for evaluation of abdominal pain. Patient states that starting this morning she has had mild lower abdominal and pelvic cramping. Some focused to the right lower quadrant. She states that throughout the day it has been getting notably worse, and this evening it has become severe. She describes it as a severe cramping ache. She states that although the pain is always constant it oscillates between severe and mild. She denies any chest pain or shortness of breath. She admits to nausea but no vomiting. She has been spotting vaginally for the last 2 weeks but denies any other discharge otherwise. She states that her periods are very irregular. She denies any other complaints at this time. She did take NSAIDs but this did not improve her symptoms. No other modifying factors. Physical exam demonstrates mild right lower quadrant tenderness, as well as mild left lower quadrant tenderness. Pain seems to be somewhat worse on the right though per patient. Negative heel strike toes. Differential includes ovarian cyst, appendicitis, ovarian torsion less likely. We will get a CT scan to evaluate for these etiologies, treat patient's pain, rehydrate, monitor closely and reassess. 3:16 PM Patient's laboratory work-up has returned, no white count bandemia or left shift, electrolytes stable. Urinalysis shows RBCs but no other significant abnormality. CT scan has returned, and 2 concerning findings are noted, the first there is evidence of retrocecal appendicitis without gross perforation or abscess, there does appear to be of a fecalith also noted there. In addition to that, the patient does have a 5.2 cm right ovarian cyst which appears complicated. On reassessment the patient's pain has improved but does seem to come back on and off, differential still does include ovarian torsion but appears to be intermittent although she does not appear to be clinically torsion right now. Although the ovary is only 5 cm it still remains on the differential. Additionally with the appendicitis she certainly does require surgical option. I did reach out to on-call surgeon Dr. Corrales, she agrees with the need for potential surgical management. We will start Cipro and Flagyl secondary to the patient's penicillin allergy. Ultrasound is not currently available here at the hospital, however will be here shortly. We will place an ultrasound ordered for further ovarian evaluation. Additionally I did contact [employer] discussed the case with Dr. Elkins. She temperatures recurrent concern, and if the patient will be managed surgically for the appendicitis and evaluation of the ovary will also be needed. She will come and evaluate the patient as well. Patient will be admitted by surgery, with OB consult. I have extensively reviewed the treatment plan with the patient. I have addressed all patient concerns at this time. I have also discussed the plan with the admitting physician and they agree with the current assessment and plan and have agreed to assume responsibility for the patient. All parties demonstrate verbal understanding and agreement with our assessment and plan at this time. The documentation in this chart was dictated using [employer] dictation software. Please excuse any dictation errors. 5:07 AM Still waiting for the patient to be moved stairs secondary to bed availability. On reassessment patient is still feeling much better. Repeat exam shows signs and symptoms inconsistent currently with acute ovarian torsion. She states that the pain has notably improved. Patient will be transferred upstairs shortly. FINDINGS: Liver: No mass. Hepatomegaly and diffuse fatty infiltration Gallbladder and bile ducts: No calcified stones. No ductal dilation. Pancreas: No ductal dilation. Spleen: No splenomegaly. Adrenal glands: No mass. Kidneys and ureters: No hydronephrosis. Hypodensity in the right kidney not clearly cystic Stomach and bowel: No obstruction. No mucosal thickening. Appendix: Dilated 13 mm retrocecal appendix. Faint fecalith sagittal image 136 at the base of the appendix suspected Intraperitoneal space: No free air. No significant fluid collection. Vasculature: Unremarkable. No abdominal aortic aneurysm. Lymph nodes: Unremarkable. No enlarged lymph nodes. Urinary bladder: Unremarkable as visualized. Reproductive: 5.2 cm minimally complicated right ovarian cyst. Question right-sided uterine fibroid measuring up to 2.5 cm Bones/joints: Chronic spondylolysis with spondylolisthesis at L5-S1 with chronic deformities grossly stable. No acute fracture. Soft tissues: Unremarkable. IMPRESSION: Acute retrocecal appendicitis without gross perforation or abscess 5.2 cm right ovarian cyst and suspected right-sided uterine fibroid. Consider pelvic ultrasound Thank you for allowing us to participate in the care of your patient. Dictated and Authenticated by: Francisco Mckeon MD 06/15/2021 2:46 AM Eastern Time ([place] & [place]) HPI General Date/Time Provider Initiated Documentation: 06/15/21 01:05. HPI Narrative: This is a 35-year-old female with a past medical history of a BMI of 34, PCOS, hepatic steatosis, depression, spondylolisthesis and previous back surgery, who presents today for evaluation of abdominal pain. Patient states that starting this morning she has had mild lower abdominal and pelvic cramping. Some focused to the right lower quadrant. She states that throughout the day it has been getting notably worse, and this evening it has become severe. She describes it as a severe cramping ache. She states that although the pain is always constant it oscillates between severe and mild. She denies any chest pain or shortness of breath. She admits to nausea but no vomiting. She has been spotting vaginally for the last 2 weeks but denies any other discharge otherwise. She states that her periods are very irregular. She denies any other complaints at this time. She did take NSAIDs but this did not improve her symptoms. No other modifying factors. Related Data Home Medications Medication Instructions Recorded Confirmed acetaminophen 325 mg tablet 650 mg PO Q4H PRN PRN tab 01/03/17 06/15/21 (Tylenol) ibuprofen 800 mg tablet 800 mg PO Q8H 08/22/19 06/15/21 bupropion HCl 150 mg 24 hr tablet, 150 mg PO QAM #90 tab-cap 01/22/21 06/15/21 extended release (Wellbutrin XL) citalopram 20 mg tablet 20 mg PO DAILY #90 tab-cap 21 06/15/21 valacyclovir 500 mg tablet 500 mg PO BID #6 tab 03/16/21 06/15/21 (Valtrex) cholecalciferol (vitamin D3) 10 10 mcg PO DAILY 06/15/21 06/15/21 mcg (400 unit) capsule (Vitamin D3) multivitamin 1 tab PO DAILY 06/15/21 06/15/21 Previous Rx's Medication Instructions Recorded acetaminophen 325 mg tablet 650 mg PO Q4H PRN PRN tab 01/03/17 (Tylenol) bupropion HCl 150 mg 24 hr tablet, 150 mg PO QAM #90 tab-cap 01/22/21 extended release (Wellbutrin XL) citalopram 20 mg tablet 20 mg PO DAILY #90 tab-cap 01/22/21 valacyclovir 500 mg tablet 500 mg PO BID #6 tab 03/16/21 (Valtrex) Allergies Allergy/AdvReac Type Severity Reaction Status Date / Time penicillin V Allergy Mild Swelling, Verified 05/28/21 09:00 rash,itchy face especially around eyes. amoxicillin Allergy Skin Rash Verified 05/28/21 09:00 General Stated Complaint: Abd Prob FRANCIE: 3 Review of Systems All systems reviewed & are unremarkable except as noted in HPI and below PFSH All Active Problems (Updated 06/15/21 @ 03:21 by Brodie Marino DO) Acute appendicitis (Acute) Ovarian cyst (Acute) Elevated alkaline phosphatase level (Acute) Amenorrhea (Acute) Hyperlipidemia, unspecified (Acute) Binge eating disorder (Chronic) Plantar fasciitis, right (Chronic) Obesity (Chronic) Low back pain (Acute) Elevated liver enzymes (Acute) IFG (impaired fasting glucose) (Chronic) ADHD (attention deficit hyperactivity disorder), combined type (Chronic) 01/19/2018 Psychiatry consult (Dr. 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) PCOS (polycystic ovarian syndrome) (Chronic 10/28/14) Metformin Rx in the past Hepatic steatosis (Chronic 08/14/13) Depression (Chronic 02/13/16) Side effects with sertraline Alcohol consumption binge drinking (Chronic 04/28/15) Medical History Spondylolisthesis S/p surgery Surgical History Back surgery x2 in 2000 For spondylolisthesis, then staph infection complication Family History Father Essential hypertension Hyperlipidemia Brother Anxiety Brother Autistic spectrum disorder Other Hypothyroidism Social History Smoking/Tobacco Use Status: Never Smoking risk assessment performed?: Yes Alcohol Intake: current Alcohol Intake frequency: a few times a week Drug use: Occasionally Substance use type: crack/cocaine and hallucinogens Adopted: No Caregiver/Support person: No Foster care: No Housing: apartment Communication Needs: None Do you need help understanding health information?: Never 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 [employer] Pets and animals: Yes Pets and animals: cat(s) Sexually active: Yes Do you think of yourself as: bisexual Current gender identity: female What is your relationship status?: never How often do you talk on the phone with friends or family?: three or more times per week How often do you get together with friends or relatives?: three or more times per week Do you belong to any clubs or organized social groups?: no Panel score (0-1 are the most socially isolated patients): 1 What type of physical activity do you participate in: regular exercise Duration: 15-30 minutes/day Frequency: 1-2 times per week Reena/Orthodox: None Special reena needs: No Seatbelt use: sometimes Helmet use: Yes Drive intox or ride w/intox skidder driver: No Working smoke detector in home: Yes Fire extinguisher in home: Yes Carbon monox detector in home: Yes Firearms in home: No Do you feel safe at home: Yes Do you feel safe in your relationship?: Yes Female Reproductive History Menstrual control method: none History History 0 Para Hx # Term Pregnancies Multiple births Hx # Pregnancies Ectopic pregnancies AB induced Hx Number of Living Children AB spontaneous Exam Narrative Exam Narrative: 1.Const: Well-nourished, Well-developed, appearing stated age 2.Eyes: PERRL, no conjunctival injection, and symmetrical lids. 3.ENT: Atraumatic external nose and ears. Moist MM. Neck: Symmetric, trachea midline, No thyromegaly. 4.CVS: +S1/S2, No murmurs or gallops. Peripheral pulses 2+ and equal in all extremities. Brisk capillary refill in all extremities. 5.RESP: Unlabored respiratory effort. Clear to auscultation bilaterally. No wheezes rales or rhonchi 6.GI: Soft, nondistended. No guarding or rebound. No epigastric or upper abdominal tenderness. Mild to moderate right lower quadrant tenderness. Mild left lower quadrant tenderness. 7.MSK: Normocephalic/Atraumatic, Extremities w/o deformity or ttp No cyanosis or clubbing, Normal movement of all extremities 8.Skin: Warm, Dry. No rashes or lesions. 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 Sensation grossly intact, no focal neurologic deficits. 10.Psych: (AAO) x3. Appropriate mood and affect Course Vital Signs Vital signs: Vital Signs Temperature 36.2 C L 06/15/21 01:09 Pulse 79 06/15/21 01:09 Respiratory Rate 16 06/15/21 01:09 Blood Pressure 184/86 H 06/15/21 01:09 Pulse Oximetry 97 06/15/21 01:09 Temperature 36.2 C L 06/15/21 01:09 Pulse 79 06/15/21 01:09 Respiratory Rate 16 06/15/21 01:09 Respiratory Effort Non-Labored 06/15/21 01:22 Blood Pressure 184/86 H 06/15/21 01:09 Pulse Oximetry 97 06/15/21 01:09 Pain Level 6 06/15/21 01:09 Lab/Test Results Lab/Test Results: Laboratory Tests Range/Units 06/15/21 01:18 Urine Color (Yellow) [place] Urine Clarity (Clear) Cloudy Urine pH (5-8) 6.5 Ur Specific [place] (1.005-1.025) 1.025 Urine Protein (Negative) mg/dL 30 H Urine Ketones (Negative) mg/dL Negative Urine Blood (Negative) Large H Urine Nitrite (Negative) Negative Urine Bilirubin (Negative) Negative Urine Urobilinogen (Up TO 0.2) EU/dL 0.2 Ur Leukocyte Esterase (Negative) Small H Urine Glucose (Negative) mg/dL Negative PAWSS Have you Been Recently Intoxicated or Drunk Within the Last 30 days?: No Have you Ever Experienced Previous Episodes of Alcohol Withdrawal?: No Result: 0
[2021-06-15 01:27] LABS: RBC >50 HPF (0-2)
[2021-06-15 01:28] LABS: C & S Indicated? Yes
[2021-06-15] MEDS: Ketorolac 15 MG/ML VIAL IVP (01:32)
[2021-06-15] MEDS: Normal Saline 1,000 ML 1000 ML IV (01:32)
[2021-06-15] MEDS: MORPHine 4 MG/ML SYR IVP ×2 (01:33→09:23)
[2021-06-15] MEDS: Omnipaque 350 MG/ML 100 ML BTL IJ (01:40)
[2021-06-15 01:44] LABS: Abs Immature Grans 0.05 10^3/uL (0.0-0.06); Absolute Basophil Count 0.04 10^3/uL (0.0-0.2); Absolute Lymphocyte Count 3.24 10^3/uL (1.2-3.4); Absolute Monocyte Count 0.68 10^3/uL (0.1-0.8); Basophils % 0.4; Eosinophils % 1.9; HCT 43.7 % (36.0-46.0); HGB 13.5 g/dL (11.2-15.7); Immature Grans % 0.5; Lymphocytes % 31.4; MCH 25.2 pg (27.0-33.0); MCHC 30.9 % (32.0-36.0); MCV 81.5 fL (80-95); MPV 10.2 fL (8.0-11.0); Monocytes % 6.6; Neutrophils % 59.2; Nucleated RBC 0 %; Platelet Count 196 10^3/uL (130-400); RBC 5.36 10^6/uL (3.93-5.22); RDW 13.6 % (11.7-14.6); RDW-SD 39.9 fL; WBC 10.31 10^3/uL (4.4-10.8)
[2021-06-15 02:01] LABS: ALT 34 U/L (14-59); AST 17 U/L (15-37); Albumin 3.5 g/dL (3.4-5.0); Alkaline Phosphatase 177 U/L (46-116); Anion Gap 10.5 mmol/L (3-11); BUN 11 mg/dL (7-18); Bilirubin, Total 0.3 mg/dL (0.2-1.0); CO2 25.5 mmol/L (21.0-32.0); Calcium 8.3 mg/dL (8.5-10.1); Chloride 103 mmol/L (98-107); Glucose 144 mg/dL (74-106); Lipase 71 U/L (73-393); Potassium 3.5 mmol/L (3.5-5.1); Sodium 139 mmol/L (136-145); Total Protein 6.9 g/dL (6.4-8.2)
--- NOTE | 2021-06-15 02:47 | DI.VRAD_ITS ---
Addendum created by Francisco Mckeon MD on 06/15/2021 2:52:12 AM EDT: The retrocecal appendix is dilated up to 13 mm without surrounding inflammatory change or significant thickening. Early retrocecal appendicitis not excluded THIS REPORT CONTAINS FINDINGS THAT MAY BE CRITICAL TO PATIENT CARE. The findings were verbally communicated via telephone conference with JIE MATTHEW at 2:51 AM EST on 06/15/2021. The findings were acknowledged and understood. Initial report created on 06/15/2021 2:46:43 AM EDT: PROCEDURE INFORMATION: Exam: CT Abdomen And Pelvis With Contrast Exam date and time: 06/15/2021 1:42 AM Age: 35 years old Clinical indication: Abdominal pain; Localized; Right lower quadrant (rlq); Prior surgery; Surgery date: 6+ months; Surgery type: Back surgery; Patient HX: Rlq abdominaol tenderness, pcos, vag bleeding TECHNIQUE: Imaging protocol: Computed tomography of the abdomen and pelvis with contrast. Radiation optimization: All CT scans at this facility use at least one of these dose optimization techniques: automated exposure control; mA and/or kV adjustment per patient size (includes targeted exams where dose is matched to clinical indication); or iterative reconstruction. Contrast material: OMNIPAQUE 350; Contrast volume: 100 ml; Contrast route: INTRAVENOUS (IV); COMPARISON: CT ABDOMEN PELVIS W 08/12/2019 9:18 AM FINDINGS: Liver: No mass. Hepatomegaly and diffuse fatty infiltration Gallbladder and bile ducts: No calcified stones. No ductal dilation. Pancreas: No ductal dilation. Spleen: No splenomegaly. Adrenal glands: No mass. Kidneys and ureters: No hydronephrosis. Hypodensity in the right kidney not clearly cystic Stomach and bowel: No obstruction. No mucosal thickening. Appendix: Dilated 13 mm retrocecal appendix. Faint fecalith sagittal image 136 at the base of the appendix suspected Intraperitoneal space: No free air. No significant fluid collection. Vasculature: Unremarkable. No abdominal aortic aneurysm. Lymph nodes: Unremarkable. No enlarged lymph nodes. Urinary bladder: Unremarkable as visualized. Reproductive: 5.2 cm minimally complicated right ovarian cyst. Question right-sided uterine fibroid measuring up to 2.5 cm Bones/joints: Chronic spondylolysis with spondylolisthesis at L5-S1 with chronic deformities grossly stable. No acute fracture. Soft tissues: Unremarkable. IMPRESSION: Acute retrocecal appendicitis without gross perforation or abscess 5.2 cm right ovarian cyst and suspected right-sided uterine fibroid. Consider pelvic ultrasound Dictated and Authenticated by: Francisco Mckeon MD. Ordering:ZAC Calloway MD
--- NOTE | 2021-06-15 03:00 | DI.US_ITS ---
Exam(s) US PELVIS TRANSVAGINAL EXAM: US PELVIS TRANSVAGINAL CLINICAL HISTORY: right ovarian cyst, eval for torsion TECHNIQUE: Ultrasound of the pelvis was performed both transabdominal and transvaginal. COMPARISON: US ABDOMEN ULTRASOUND (P) from 10/13/2015 FINDINGS: UTERUS: Nongravid and anteverted Measures 7.7 cm length x 3.5 cm AP x 6 cm wide. There is a right-sided fibroid measuring 3.3 x 3.3 x 3 cm Endometrial thickness measures 10 mm. There is no fluid in the endometrial canal. CERVIX: Small nabothian cysts. RIGHT OVARY: Measures 6 x 4.3 x 6 cm Contains a cyst measuring 4.8 x 3.4 x 4.6 cm. Within this cystic component is a separate solid compo nent measuring 2.6 x 1 x 2.1 cm. No evidence of torsion with satisfactory blood flow demonstrated LEFT OVARY: Measures 2.5 x 1.9 x 2.4 cm No significant cysts nor masses evident in the left ovary. Normal blood flow CUL-DE-SAC: No free fluid evident. IMPRESSION: 1. There is a right sided uterine fibroid, seen on CT scan. 2. There is a 4.8 x 3.5 x 4.6 cm cyst in the right ovary which contains a solid component measuring 0 .6 x 1 x 2 cm. Opposite-left ovary appears unremarkable. 3. No free fluid evident in the adnexal regions and cul-de-sac. 4. Please note that this patient also has an abnormally thickened retrocecal appendix as seen on duy driscoll's CT scan. Although this appendix still contains air and no periappendiceal streaking on CT scan, the diameter of the appendix is significantly changed from the prior CT scan. DATA REPOSITORY:
--- NOTE | 2021-06-15 03:13 | W.PM.HP.N ---
Date of service: 06/15/21 Time of Service: 05:56 Assessment and Plan Assessment and plan (1) Acute appendicitis: Status: Acute Assessment and plan: -Appendix appears slightly enlarged without signs of indection or inflammation -IV antibiotics given by ER -Pelvic US pending, need to consider ovarian torsion as source of discomfort -[employer] consult pending -Further treatment recommendations to follow once diagnostic work up is complete (2) Ovarian cyst: Status: Acute (3) Hyperlipidemia, unspecified: Status: Acute Qualifiers: Hyperlipidemia type: unspecified Qualified Code(s): E78.5 - Hyperlipidemia, unspecified (4) Binge eating disorder: Status: Chronic (5) Depression: Status: Chronic Qualifiers: Depression Type: major depressive disorder Major depression recurrence: unspecified whether recurrent Active/Remission status: in remission of unspecified degree Qualified Code(s): F32.5 - Major depressive disorder, single episode, in full remission History of Present Illness Narrative: 35 year old female with hx of PCOS who presented to the emergency room complaining of waxing and waning right lower quadrant pain for the last 24 hours. She denies fevers or chills, reports nausea without emesis. She last ate two slices of pizza at midnight so she could take ibuprofen. She is currently menstruating and has been for the last 2 weeks. She reports very abnormal menstrual cycles and admits to medical non-compliance. Not currently on any contraception. Basic labs in the ER were essentially normal and CT of the abdomen revealed a mildly enlarged appendix read as appendicitis by teleradiology. She was started on IV antibiotics and IV fluids and has a pelvic ultrasound and [employer] consult pending. Review of Systems All systems reviewed & are unremarkable except as noted in HPI and below PFSH All Active Problems (Updated 06/15/21 @ 03:21 by Brodie Marino DO) Acute appendicitis (Acute) Ovarian cyst (Acute) Elevated alkaline phosphatase level (Acute) Amenorrhea (Acute) Hyperlipidemia, unspecified (Acute) Binge eating disorder (Chronic) Plantar fasciitis, right (Chronic) Obesity (Chronic) Low back pain (Acute) Elevated liver enzymes (Acute) IFG (impaired fasting glucose) (Chronic) ADHD (attention deficit hyperactivity disorder), combined type (Chronic) 01/19/2018 Psychiatry consult (Dr. 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) PCOS (polycystic ovarian syndrome) (Chronic 10/28/14) Metformin Rx in the past Hepatic steatosis (Chronic 08/14/13) Depression (Chronic 02/13/16) Side effects with sertraline Alcohol consumption binge drinking (Chronic 04/28/15) Medical History Spondylolisthesis S/p surgery Surgical History Back surgery x2 in 2000 For spondylolisthesis, then staph infection complication Family History Father Essential hypertension Hyperlipidemia Brother Anxiety Brother Autistic spectrum disorder Other Hypothyroidism Social History Smoking/Tobacco Use Status: Never Smoking risk assessment performed?: Yes Alcohol Intake: current Alcohol Intake frequency: a few times a week Drug use: Occasionally Substance use type: crack/cocaine and hallucinogens Adopted: No Caregiver/Support person: No Foster care: No Housing: apartment Communication Needs: None Do you need help understanding health information?: Never 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 [employer] Pets and animals: Yes Pets and animals: cat(s) Sexually active: Yes Do you think of yourself as: bisexual Current gender identity: female What is your relationship status?: never How often do you talk on the phone with friends or family?: three or more times per week How often do you get together with friends or relatives?: three or more times per week Do you belong to any clubs or organized social groups?: no Panel score (0-1 are the most socially isolated patients): 1 What type of physical activity do you participate in: regular exercise Duration: 15-30 minutes/day Frequency: 1-2 times per week Reena/Muslim: None Special reena needs: No Seatbelt use: sometimes Helmet use: Yes Drive intox or ride w/intox interstate bus driver: No Working smoke detector in home: Yes Fire extinguisher in home: Yes Carbon monox detector in home: Yes Firearms in home: No Do you feel safe at home: Yes Do you feel safe in your relationship?: Yes Female Reproductive History Menstrual control method: none History History 0 Para Hx # Term Pregnancies Multiple births Hx # Pregnancies Ectopic pregnancies AB induced Hx Number of Living Children AB spontaneous Meds Allergies and Home Medications Allergies Allergy/AdvReac Type Severity Reaction Status Date / Time penicillin V Allergy Mild Swelling, Verified 05/28/21 09:00 rash,itchy face especially around eyes. amoxicillin Allergy Skin Rash Verified 05/28/21 09:00 Home Medications Medication Instructions Recorded Confirmed Type acetaminophen 325 mg tablet 650 mg PO Q4H PRN PRN tab 01/03/17 06/15/21 Rx (Tylenol) ibuprofen 800 mg tablet 800 mg PO Q8H 08/22/19 06/15/21 History bupropion HCl 150 mg 24 hr tablet, 150 mg PO QAM #90 tab-cap 01/22/21 06/15/21 Rx extended release (Wellbutrin XL) citalopram 20 mg tablet 20 mg PO DAILY #90 tab-cap 01/22/21 06/15/21 Rx valacyclovir 500 mg tablet 500 mg PO BID #6 tab 03/16/21 06/15/21 Rx (Valtrex) cholecalciferol (vitamin D3) 10 10 mcg PO DAILY 06/15/21 06/15/21 History mcg (400 unit) capsule (Vitamin D3) multivitamin 1 tab PO DAILY 06/15/21 06/15/21 History Exam Const General: cooperative, comfortable and no acute distress Nutritional Appearance: obese Resp Effort & Inspection: normal respiratory effort and able to speak in complete sentences Cardio Rate: regular rate Rhythm: regular rhythm GI Inspection: normal to inspection, large pannus and obesity Palpation: soft and tender in the RLQ, in the RUQ and suprapubicly Percussion: normal to percussion Skin General skin exam: no rashes or lesions noted Neuro General: patient alert, patient awake and patient oriented x3 Results Labs Result diagrams: 06/15/21 06:15 06/15/21 06:15 Labs: Laboratory Results - last 24 hr 06/15/21 06/15/21 06/15/21 01:18 01:30 01:30 WBC 10.31 RBC 5.36 H Hgb 13.5 Hct 43.7 MCV 81.5 MCH 25.2 L MCHC 30.9 L RDW 13.6 Plt Count 196 MPV 10.2 Immature Gran % 0.5 Neutrophils % 59.2 Lymphocytes % 31.4 Monocytes % 6.6 Eosinophils % 1.9 Basophils % 0.4 Nucleated RBC % 0 Absolute Neutrophils 6.10 Absolute Lymphocytes 3.24 Absolute Monocytes 0.68 Absolute Eosinophils 0.20 Absolute Basophils 0.04 Sodium 139 Potassium 3.5 Chloride 103 Carbon Dioxide 25.5 Anion Gap 10.5 BUN 11 Creatinine 1.0 Estimated GFR/1.73 m2 >= 60.00 Glucose 144 H Calcium 8.3 L Total Bilirubin 0.3 AST 17 ALT 34 Alkaline Phosphatase 177 H Total Protein 6.9 Albumin 3.5 Lipase 71 Urine Color [place] Urine Clarity Cloudy Urine pH 6.5 Ur Specific [place] 1.025 Urine Protein 30 H Urine Ketones Negative Urine Blood Large H Urine Nitrite Negative Urine Bilirubin Negative Urine Urobilinogen 0.2 Ur Leukocyte Esterase Small H Urine RBC >50 H Urine WBC Ur Epithelial Cells Urine Crystals Not Applicable Urine Bacteria Urine Mucus Not Applicable Ur Culture Indicated? Yes Urine Glucose Negative Last Vital Signs Temp 97.2 F L 06/15/21 01:09 Pulse 67 06/15/21 02:05 Resp 16 06/15/21 02:05 BP 164/90 H 06/15/21 02:05 Pulse Ox 97 06/15/21 02:05 PAWSS Have you Been Recently Intoxicated or Drunk Within the Last 30 days?: No Have you Ever Experienced Previous Episodes of Alcohol Withdrawal?: No Result: 0
[2021-06-15] MEDS: Pantoprazole 40 MG VIAL IVP (03:23)
[2021-06-15] MEDS: HYDROmorphone 2 MG/ML VIAL 1 MG IVP (03:24)
[2021-06-15] MEDS: metroNIDAZOLE 500 MG/100 ML BAG 100 MG IVPB ×4 (03:27→23:56)
[2021-06-15] MEDS: Lactated Ringers 1,000 ML 125 ML IV ×2 (03:35→09:26)
[2021-06-15] MEDS: CIPROFLOXACIN 400 MG/200 ML BAG 200 MG IVPB (04:45)
[2021-06-15 06:19] LABS: Abs Immature Grans 0.04 10^3/uL (0.0-0.06); Absolute Eosinophil Count 0.22 10^3/uL (0.0-0.7); Absolute Lymphocyte Count 3.16 10^3/uL (1.2-3.4); Basophils % 0.2; Eosinophils % 1.8; HCT 40.9 % (36.0-46.0); HGB 12.8 g/dL (11.2-15.7); Immature Grans % 0.3; Lymphocytes % 26.2; MCH 25.2 pg (27.0-33.0); MCHC 31.3 % (32.0-36.0); MCV 80.5 fL (80-95); MPV 10.5 fL (8.0-11.0); Neutrophils % 65.5; Nucleated RBC 0 %; Platelet Count 171 10^3/uL (130-400); RBC 5.08 10^6/uL (3.93-5.22); RDW 13.4 % (11.7-14.6); RDW-SD 39.2 fL; WBC 12.08 10^3/uL (4.4-10.8)
[2021-06-15 06:22] LABS: Absolute Basophil Count 0.02 10^3/uL (0.0-0.2); Absolute Monocyte Count 0.72 10^3/uL (0.1-0.8); Absolute Neutrophil Count 7.91 10^3/uL (1.2-6.7)
[2021-06-15 06:28] LABS: Anion Gap 9.8 mmol/L (3-11); BUN 9 mg/dL (7-18); CO2 26.2 mmol/L (21.0-32.0); CREATININE 0.8 mg/dL (0.55-1.02); Calcium 7.7 mg/dL (8.5-10.1); Chloride 102 mmol/L (98-107); Glucose 131 mg/dL (74-106); Potassium 3.4 mmol/L (3.5-5.1); Sodium 138 mmol/L (136-145)
[2021-06-15] MEDS: Ondansetron 4 MG/2 ML VIAL IVP (06:29)
[2021-06-15] MEDS: ACETAMINOPHEN 1,000 MG/100 ML BTL 400 MG IVPB ×2 (06:29→17:13)
[2021-06-15 08:13] LABS: Source Nasal/Nares
[2021-06-15 08:55] LABS: COVID-19 PCR Negative (Negative)
[2021-06-15] MEDS: buPROPion-XL 150 MG TABCR PO (09:20)
[2021-06-15] MEDS: Cholecalciferol (Vitamin D3) 400 UNIT TAB PO (09:20)
[2021-06-15] MEDS: Citalopram 20 MG TAB PO (09:20)
[2021-06-15] MEDS: Multivitamin TAB 1 TAB PO (09:21)
--- NOTE | 2021-06-15 09:27 | W.GYNCONSULT ---
Date of service: 06/15/21 Time of Service: 09:27 Assessment and Plan Assessment and plan (1) Ovarian cyst: Status: Acute Assessment and plan: Her right lower quadrant discomfort is localized to the region. She was not articularly uncomfortable during during this morning's transvaginal ultrasound. If the pt was not experiencing an appendicitis I would be inclined to manage her R ovarian cyst expectantly. Her body habitus is a significant deterrent to performing an elective procedure. However if General Surgery is inclined to treat her appendicitis with antibiotics I would recommend expectant management with close follow up of her R adnexal process. (2) Acute appendicitis: Status: Acute Assessment and plan: Awaiting General Surgery's decision regarding plan for treatment. History of Present Illness History of Present Illness Chief Complaint: Patient admitted to emergency room with right lower quadrant pain Narrative: Patient is a 35-year-old G0 finding on the currently menstruating who reports onset of sharp ureteral pain yesterday. She was evaluated with an abdominal and pelvic CT on 06/15/21 and the preliminary finding showed mild appendicitis and a 5 cm right ovarian cyst. Pelvic ultrasound was performed this morning and the cyst is primarily cystic with 1 complex component. Left adnexa is normal as is the uterus. Consults Consult date: 06/15/21 Requesting physician: Vonnie Elkins Review of Systems Constitutional Constitutional: Reports as per HPI Gastrointestinal Gastrointestinal: Reports abdominal pain, Denies change in bowel habits, Denies nausea and Denies vomiting Genitourinary Genitourinary: Reports abnormal menses (Longstanding history of oligomenorrhea) and Reports difficulty conceiving ([employer] to be secondary to anovulation) Musculoskeletal Musculoskeletal: Reports arthralgias Psychiatric Psychiatric: Reports system reviewed and no additional complaints, except as documented PFSH All Active Problems (Updated 06/15/21 @ 03:21 by Brodie Marino DO) Acute appendicitis (Acute) Ovarian cyst (Acute) Elevated alkaline phosphatase level (Acute) Amenorrhea (Acute) Hyperlipidemia, unspecified (Acute) Binge eating disorder (Chronic) Plantar fasciitis, right (Chronic) Obesity (Chronic) Low back pain (Acute) Elevated liver enzymes (Acute) IFG (impaired fasting glucose) (Chronic) ADHD (attention deficit hyperactivity disorder), combined type (Chronic) 01/19/2018 Psychiatry consult (Dr. 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) PCOS (polycystic ovarian syndrome) (Chronic 10/28/14) Metformin Rx in the past Hepatic steatosis (Chronic 08/14/13) Depression (Chronic 02/13/16) Side effects with sertraline Alcohol consumption binge drinking (Chronic 04/28/15) Medical History Spondylolisthesis S/p surgery Surgical History Back surgery x2 in 2000 For spondylolisthesis, then staph infection complication Family History Father Essential hypertension Hyperlipidemia Brother Anxiety Brother Autistic spectrum disorder Other Hypothyroidism Social History Smoking/Tobacco Use Status: Never Smoking risk assessment performed?: Yes Alcohol Intake: current Alcohol Intake frequency: a few times a week Drug use: Occasionally Substance use type: crack/cocaine and hallucinogens Adopted: No Caregiver/Support person: No Foster care: No Housing: apartment Communication Needs: None Do you need help understanding health information?: Never 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 [employer] Pets and animals: Yes Pets and animals: cat(s) Sexually active: Yes Do you think of yourself as: bisexual Current gender identity: female What is your relationship status?: never How often do you talk on the phone with friends or family?: three or more times per week How often do you get together with friends or relatives?: three or more times per week Do you belong to any clubs or organized social groups?: no Panel score (0-1 are the most socially isolated patients): 1 What type of physical activity do you participate in: regular exercise Duration: 15-30 minutes/day Frequency: 1-2 times per week Reena/Quaker: None Special reena needs: No Seatbelt use: sometimes Helmet use: Yes Drive intox or ride w/intox moving van driver: No Working smoke detector in home: Yes Fire extinguisher in home: Yes Carbon monox detector in home: Yes Firearms in home: No Do you feel safe at home: Yes Do you feel safe in your relationship?: Yes Female Reproductive History Menstrual control method: none History History 0 Para Hx # Term Pregnancies Multiple births Hx # Pregnancies Ectopic pregnancies AB induced Hx Number of Living Children AB spontaneous Exam Narrative Exam Narrative: Patient is known to the [facility] staff. She has been follow-up for [employer]CH[employer] care including on recent episode of HPV on screening Pap. She has declined OCPs for regulation of menstrual cycles. Currently she is not actively contraceptive. Resp Effort & Inspection: normal respiratory effort and able to speak in complete sentences GI Inspection: normal to inspection General: deferred (I was present at the pelvic ultrasound this morning) Other: I was present during the pelvic ultrasound was performed this morning. I will provide Dr. Jeffries's summary of ultrasound findings: Right ovary easures 6 x 4.3 x 6 cm. Contains a cyst measuring 4.8 x 3.4 x 4.6 cm.? Within this cystic component is a separate solid component measuring 2.6 x 1 x 2.1 cm. No evidence of torsion with satisfactory blood flow demonstrated Results Last Vital Signs Temp 98.1 F 06/15/21 09:00 Pulse 59 L 06/15/21 09:00 Resp 12 06/15/21 09:00 BP 151/69 H 06/15/21 09:00 Pulse Ox 95 06/15/21 09:00 Labs Result diagrams: 06/15/21 06:15 06/15/21 06:15 Labs: Laboratory Results - last 24 hr 06/15/21 06/15/21 06/15/21 01:18 01:30 01:30 WBC 10.31 RBC 5.36 H Hgb 13.5 Hct 43.7 MCV 81.5 MCH 25.2 L MCHC 30.9 L RDW 13.6 Plt Count 196 MPV 10.2 Immature Gran % 0.5 Neutrophils % 59.2 Lymphocytes % 31.4 Monocytes % 6.6 Eosinophils % 1.9 Basophils % 0.4 Nucleated RBC % 0 Absolute Neutrophils 6.10 Absolute Lymphocytes 3.24 Absolute Monocytes 0.68 Absolute Eosinophils 0.20 Absolute Basophils 0.04 Sodium 139 Potassium 3.5 Chloride 103 Carbon Dioxide 25.5 Anion Gap 10.5 BUN 11 Creatinine 1.0 Estimated GFR/1.73 m2 >= 60.00 Glucose 144 H Calcium 8.3 L Total Bilirubin 0.3 AST 17 ALT 34 Alkaline Phosphatase 177 H Total Protein 6.9 Albumin 3.5 Lipase 71 Urine Color [place] Urine Clarity Cloudy Urine pH 6.5 Ur Specific [employer] 1.025 Urine Protein 30 H Urine Ketones Negative Urine Blood Large H Urine Nitrite Negative Urine Bilirubin Negative Urine Urobilinogen 0.2 Ur Leukocyte Esterase Small H Urine RBC >50 H Urine WBC Ur Epithelial Cells Urine Crystals Not Applicable Urine Bacteria Urine Mucus Not Applicable Ur Culture Indicated? Yes Urine Glucose Negative COVID-19 Source SARS-CoV-2 (PCR) 06/15/21 06/15/21 06/15/21 06:15 06:15 08:05 WBC 12.08 H RBC 5.08 Hgb 12.8 Hct 40.9 MCV 80.5 MCH 25.2 L MCHC 31.3 L RDW 13.4 Plt Count 171 MPV 10.5 Immature Gran % 0.3 Neutrophils % 65.5 Lymphocytes % 26.2 Monocytes % 6.0 Eosinophils % 1.8 Basophils % 0.2 Nucleated RBC % 0 Absolute Neutrophils 7.91 H Absolute Lymphocytes 3.16 Absolute Monocytes 0.72 Absolute Eosinophils 0.22 Absolute Basophils 0.02 Sodium 138 Potassium 3.4 L Chloride 102 Carbon Dioxide 26.2 Anion Gap 9.8 BUN 9 Creatinine 0.8 Estimated GFR/1.73 m2 >= 60.00 Glucose 131 H Calcium 7.7 L Total Bilirubin AST ALT Alkaline Phosphatase Total Protein Albumin Lipase Urine Color Urine Clarity Urine pH Ur Specific [employer] Urine Protein Urine Ketones Urine Blood Urine Nitrite Urine Bilirubin Urine Urobilinogen Ur Leukocyte Esterase Urine RBC Urine WBC Ur Epithelial Cells Urine Crystals Urine Bacteria Urine Mucus Ur Culture Indicated? Urine Glucose COVID-19 Source Nasal/Nares SARS-CoV-2 (PCR) Negative
[2021-06-15] MEDS: CIPROFLOXACIN 200 MG/100 ML BAG 100 MG IVPB (11:05)
[2021-06-15] MEDS: Ketorolac 30 MG/ML VIAL 15 MG IVP (13:18)
--- NOTE | 2021-06-15 13:53 | W.ANESPRE ---
General Info Date of Service Date Performed: 06/15/21 Height: 5 ft 4 in Weight: 143.335 kg Body Mass Index (BMI): 54.2 Surgical Procedure: Operation Date: 06/15/21 14:40 Proposed Procedure Side Surgeon p Appendectomy Open Daniela Camilo MD Meds Allergies and Home Medications Allergies Allergy/AdvReac Type Severity Reaction Status Date / Time penicillin V Allergy Mild Swelling, Verified 05/28/21 09:00 rash,itchy face especially around eyes. amoxicillin Allergy Skin Rash Verified 05/28/21 09:00 Home Medication Medication Instructions Recorded acetaminophen 325 mg tablet 650 mg PO Q4H PRN PRN tab 01/03/17 (Tylenol) ibuprofen 800 mg tablet 800 mg PO Q8H 08/22/19 bupropion HCl 150 mg 24 hr tablet, 150 mg PO QAM #90 tab-cap 01/22/21 extended release (Wellbutrin XL) citalopram 20 mg tablet 20 mg PO DAILY #90 tab-cap 01/22/21 valacyclovir 500 mg tablet 500 mg PO BID #6 tab 03/16/21 (Valtrex) cholecalciferol (vitamin D3) 10 10 mcg PO DAILY 06/15/21 mcg (400 unit) capsule (Vitamin D3) multivitamin 1 tab PO DAILY 06/15/21 Current Visit Medications: Current Medications Generic Name Dose Route Start Last Admin Trade Name Freq PRN Reason Stop Dose Admin Bupropion HCl 150 mg 06/15/21 08:30 06/15/21 09:20 Bupropion-Xl 150 Mg Tabcr PO 150 mg QAM HANNAH Administration Cholecalciferol 1 unit 06/15/21 08:30 06/15/21 09:20 Cholecalciferol (Vitamin D3) 400 Unit Tab PO 1 unit DAILY HANNAH Administration Citalopram Hydrobromide 20 mg 06/15/21 08:30 06/15/21 09:20 Citalopram 20 Mg Tab PO 20 mg DAILY HANNAH Administration Enoxaparin Sodium 40 mg 06/16/21 08:00 Enoxaparin 40 Mg/0.4 Ml Syr SC Q24H HANNAH Sodium Chloride 500 mls @ 0 mls/hr 06/15/21 03:06 Saline 500ml Bag IV PRN PRN As Directed Ringer's Solution 1,000 mls @ 125 mls/hr 06/15/21 03:15 06/15/21 09:26 IV 125 mls/hr INFUSION HANNAH Administration Acetaminophen 1,000 mg in 100 mls @ 400 mls/hr 06/15/21 03:06 06/15/21 06:44 Ofirmev IVPB Infused Q8H PRN PRN Infusion Promethazine HCl 12.5 mg/ 50.5 mls @ 200 mls/hr 06/15/21 06:49 Sodium Chloride IVPB Q4H PRN PRN Ciprofloxacin 200 mg in 100 mls @ 100 mls/hr 06/15/21 10:00 06/15/21 11:05 Cipro I.V. IVPB 100 mls/hr Q24H HANNAH Administration Protocol Metronidazole 500 mg in 100 mls @ 100 mls/hr 06/15/21 12:00 06/15/21 12:40 Flagyl IVPB 100 mls/hr Q6H HANNAH Administration IV Miscellaneous Supplies 1 each 06/15/21 03:15 Iv Access IV DIRECTED HANNAH Ketorolac Tromethamine 15 mg 06/15/21 03:10 06/15/21 13:18 Ketorolac 30 Mg/Ml Vial IVP 06/20/21 03:09 15 mg Q6H PRN PRN Administration Morphine Sulfate 2 mg 06/15/21 03:06 Morphine 2 Mg/Ml Syr IVP Q1H PRN PRN Multivitamins 1 tab 06/15/21 08:30 06/15/21 09:21 Multivitamin Tab PO 1 tab DAILY HANNAH Administration Pantoprazole Sodium 40 mg 06/16/21 08:00 Pantoprazole 40 Mg Vial IVP Q24H HANNAH Sodium Chloride 0 ml 06/15/21 03:06 Normal Saline Flush 10 Ml Syr IVP PRN PRN PFSH Active Problems Active Problems: Problem Status Onset Code Acute appendicitis K35.80 Ovarian cyst N83.209 Elevated alkaline phosphatase level R74.8 Amenorrhea N91.2 Hyperlipidemia, unspecified E78.5 Binge eating disorder F50.81 Plantar fasciitis, right M72.2 Obesity E66.9 Low back pain M54.5 Elevated liver enzymes R74.8 IFG (impaired fasting glucose) R73.01 ADHD (attention deficit hyperactivity disorder), combined type F90.2 Secondary physiologic amenorrhea 06/13/13 N91.1 PCOS (polycystic ovarian syndrome) 10/28/14 E28.2 Hepatic steatosis 05/20/14 K76.0 Depression 02/13/16 F32.9 Alcohol consumption binge drinking 04/28/15 F10.10 Medical History Medical History Spondylolisthesis S/p surgery Surgical History Surgical History Back surgery x2 in 2000 For spondylolisthesis, then staph infection complication Tobacco Smoking/Tobacco Use Status: Never Passive smoking exposure: No Alcohol Alcohol Intake: current Alcohol intake frequency: a few times a week Substance Use Substance use: Occasionally Substance use type: crack/cocaine and hallucinogens Prental History History 0 Para Hx # Term Pregnancies Multiple births Hx # Pregnancies Ectopic pregnancies AB induced Hx Number of Living Children AB spontaneous Vital Signs and Lab Results Vital Signs Most Recent Vital Signs in EMR: Most Recent Vital Signs Temp Pulse Resp BP Pulse Ox 36.7 C 59 L 12 151/69 H 95 06/15/21 09:00 06/15/21 09:00 06/15/21 09:00 06/15/21 09:00 06/15/21 09:00 Point of Care Results Point of Care Results: POC- Test(urine) Negative 06/15/21 01:35 Lab Results Result Diagrams: 06/15/21 06:15 06/15/21 06:15 Blood Type / Crossmatch: No Data to Display Complete Blood Count: White Blood Count 12.08 10^3/uL (4.4-10.8) H 06/15/21 06:15 06/15/21 Red Blood Count 5.08 10^6/uL (3.93-5.22) 06/15/21 06:15 06/15/21 Hemoglobin 12.8 g/dL (11.2-15.7) 06/15/21 06:15 06/15/21 Hematocrit 40.9 % (36.0-46.0) 06/15/21 06:15 06/15/21 Platelet Count 171 10^3/uL (130-400) 06/15/21 06:15 06/15/21 Complete Metabolic Panel: Sodium Level 138 mmol/L (136-145) 06/15/21 06:15 06/15/21 Potassium Level 3.4 mmol/L (3.5-5.1) L 06/15/21 06:15 06/15/21 Chloride Level 102 mmol/L (98-107) 06/15/21 06:15 06/15/21 Carbon Dioxide Level 26.2 mmol/L (21.0-32.0) 06/15/21 06:15 06/15/21 Blood Urea Nitrogen 9 mg/dL (7-18) 06/15/21 06:15 06/15/21 Creatinine 0.8 mg/dL (0.55-1.02) 06/15/21 06:15 06/15/21 Estimated GFR/1.73 m2 >= 60.00 (mL/min/1.73m2) 06/15/21 06:15 06/15/21 Calcium Level 7.7 mg/dL (8.5-10.1) L 06/15/21 06:15 06/15/21 Albumin 3.5 g/dL (3.4-5.0) 06/15/21 01:30 06/15/21 Glucose Level 131 mg/dL (74-106) H 06/15/21 06:15 06/15/21 Liver Function Panel: Alanine Aminotransferase (ALT/SGPT) 34 U/L (14-59) 06/15/21 01:30 06/15/21 Aspartate Amino Transf (AST/SGOT) 17 U/L (15-37) 06/15/21 01:30 06/15/21 Coagulation Panel: No Data to Display Cardiac Panel: No Data to Display Arterial Blood Gas: No Data to Display Venous Blood Gas: No Data to Display Pancreas Panel: Lipase 71 U/L (73-393) 06/15/21 01:30 06/15/21 Thyroid Panel: No Data to Display Infectious Disease: Coronavirus (COVID-19)(PCR) Negative (Negative) 06/15/21 08:05 06/15/21 Coronavirus 2019 Source Nasal/Nares 06/15/21 08:05 06/15/21 Blood Cultures: No Data to Display Toxicology Panel: No Data to Display Panel: Urine HCG, Qualitative Negative 05/28/21 09:08 05/28/21 Anesthesia Assessment and Plan Anesthesia History Personal History: No History of Anesthesia Complications Family History: No Family History of Anesthesia Complications Exercise Tolerance Exercise Tolerance: Metabolic Equivalents>4 Cardiac & Pulmonary Exam Cardiac Exam: Normal S1/S2 Heart Sounds Pulmonary Exam: Clear Bilateral Breath Sounds Implantable Cardiac Device Does patient have a Pacemaker or an ICD?: No Airway Exam Known Difficult Airway: No Mallampati Class: 3 Mouth Opening: Narrow (< 3cm) Thyromental Distance: Greater than 3 cm Neck Range of Motion: Full ROM Neck Circumference: Thick Teeth Condition: Normal Dentition ASA Classification ASA Score: ASA 3 Emergency Case?: No NPO Status NPO Status: NPO Clears >2 hours, Solids >8 hours Status Status: Negative HCG Anesthesia Plan Resuscitation Status: Full Code Anesthesia Technique: General Anesthesia Airway Planned: Endotracheal Tube Monitors Used: Standard Monitors Preoperative Comments:: 35 yo female for appy and possible ovarian cystectomy. Sig PMHx: BMI 54, does not smoke, 6-15 drinks/day on the weekends.
--- NOTE | 2021-06-15 14:46 | PGE_ITS ---
Date of Service Date of service: 06/15/21 Time of Service: 14:46 Subjective Subjective Interval history since last seen: The patient has agreed to a laparoscopic appendectomy with concurrent laparoscopic right ovarian cystectomy. Informed consent was obtained I reviewed the risk of infection, damage to surrounding structures including bowel bladder blood vessels and ureters at the time of the ovarian cystectomy. I told her that in the event that there was excessive bleeding or that area of concern was noted the right ovary would be removed. Her questions answered. Objective Last Vital Signs Temp 98.1 F 06/15/21 09:00 Pulse 59 L 06/15/21 09:00 Resp 12 06/15/21 09:00 BP 151/69 H 06/15/21 09:00 Pulse Ox 95 06/15/21 09:00 Laboratory Results - last 24 hr 06/15/21 06/15/21 06/15/21 01:18 01:30 01:30 WBC 10.31 RBC 5.36 H Hgb 13.5 Hct 43.7 MCV 81.5 MCH 25.2 L MCHC 30.9 L RDW 13.6 Plt Count 196 MPV 10.2 Immature Gran % 0.5 Neutrophils % 59.2 Lymphocytes % 31.4 Monocytes % 6.6 Eosinophils % 1.9 Basophils % 0.4 Nucleated RBC % 0 Absolute Neutrophils 6.10 Absolute Lymphocytes 3.24 Absolute Monocytes 0.68 Absolute Eosinophils 0.20 Absolute Basophils 0.04 Sodium 139 Potassium 3.5 Chloride 103 Carbon Dioxide 25.5 Anion Gap 10.5 BUN 11 Creatinine 1.0 Estimated GFR/1.73 m2 >= 60.00 Glucose 144 H Calcium 8.3 L Total Bilirubin 0.3 AST 17 ALT 34 Alkaline Phosphatase 177 H Total Protein 6.9 Albumin 3.5 Lipase 71 Urine Color [place] Urine Clarity Cloudy Urine pH 6.5 Ur Specific [place] 1.025 Urine Protein 30 H Urine Ketones Negative Urine Blood Large H Urine Nitrite Negative Urine Bilirubin Negative Urine Urobilinogen 0.2 Ur Leukocyte Esterase Small H Urine RBC >50 H Urine WBC Ur Epithelial Cells Urine Crystals Not Applicable Urine Bacteria Urine Mucus Not Applicable Ur Culture Indicated? Yes Urine Glucose Negative COVID-19 Source SARS-CoV-2 (PCR) 06/15/21 06/15/21 06/15/21 06:15 06:15 08:05 WBC 12.08 H RBC 5.08 Hgb 12.8 Hct 40.9 MCV 80.5 MCH 25.2 L MCHC 31.3 L RDW 13.4 Plt Count 171 MPV 10.5 Immature Gran % 0.3 Neutrophils % 65.5 Lymphocytes % 26.2 Monocytes % 6.0 Eosinophils % 1.8 Basophils % 0.2 Nucleated RBC % 0 Absolute Neutrophils 7.91 H Absolute Lymphocytes 3.16 Absolute Monocytes 0.72 Absolute Eosinophils 0.22 Absolute Basophils 0.02 Sodium 138 Potassium 3.4 L Chloride 102 Carbon Dioxide 26.2 Anion Gap 9.8 BUN 9 Creatinine 0.8 Estimated GFR/1.73 m2 >= 60.00 Glucose 131 H Calcium 7.7 L Total Bilirubin AST ALT Alkaline Phosphatase Total Protein Albumin Lipase Urine Color Urine Clarity Urine pH Ur Specific [place] Urine Protein Urine Ketones Urine Blood Urine Nitrite Urine Bilirubin Urine Urobilinogen Ur Leukocyte Esterase Urine RBC Urine WBC Ur Epithelial Cells Urine Crystals Urine Bacteria Urine Mucus Ur Culture Indicated? Urine Glucose COVID-19 Source Nasal/Nares SARS-CoV-2 (PCR) Negative PAWSS Have you Been Recently Intoxicated or Drunk Within the Last 30 days?: No Have you Ever Experienced Previous Episodes of Alcohol Withdrawal?: No Result: 0
[2021-06-15] MEDS: Lactated Ringers 1,000 ML 30 ML IV (14:48)
--- NOTE | 2021-06-15 15:41 | APP_PTH ---
PATIENT: Rahel Gilliam LOC: [id number]#:[id number] AGE/SX: 35/F ROOM: RE06/15/[address]: Lucina Guo DO : 1985 BED: A DIS: 06/16/2021 SPEC #: [id number] RECD: 06/15/21 17:12 STATUS: SOUNoemi REQ #: [id number] SEAN: 06/15/21 15:[address]: Daniela Camilo DEPT: Surgical Specimen RECD BY: Blanca Montgomery ENTERED: 06/15/21 17:14 SP TYPE: Appendix OTHR DR: ELAYNE Estrella DO Tissues: 1 - APPENDIX NOT INCIDENTAL Procedures: GROSS AND MICRO LEVEL 3 Comments: [id number]
--- NOTE | 2021-06-15 15:50 | OVAR_PTH ---
PATIENT: Rahel Gilliam LOC: [id number] AGE/SX: 35/F ROOM: RE06/15/[address]: Lucina Guo DO : 1985 BED: A DIS: 06/16/2021 SPEC #: [id number] RECD: 06/15/21 17:50 STATUS: [place] REQ #: [id number] SEAN: 06/15/21 15:[address]: Vonnie Elkins DEPT: Surgical Specimen RECD BY: Blanca Montgomery ENTERED: 06/15/21 17:51 SP TYPE: OVAR MARCIANO DR: ELAYNE Estrella DO Tissues: 1 - OVARY BIOPSY Procedures: GROSS AND MICRO LEVEL 4 Comments: [id number]
[2021-06-15] MEDS: Cellulose,Oxidized 4X8 1 PACKET MC (16:04)
[2021-06-15] MEDS: Bupivacaine 0.25% Pres-Free 30 ML VIAL (16:11)
--- NOTE | 2021-06-15 16:38 | W.PM.OP ---
Date of service: 06/15/21 Time of Service: 16:38 Operative Note Operative Note DATE OF PROCEDURE: 06/15/21 PRE-OP DIAGNOSIS: Acute appendicitis POST-OP DIAGNOSIS: same Right Ovarian cyst PROCEDURE: 1. Laparoscopic Appendectomy SURGEON: Daniela Camilo ASSISTING SURGEON: Vonnie Elkins ANESTHESIA TYPE: Local By Surgeon and General LMA/ETT Refer to Anesthesia Record ESTIMATED BLOOD LOSS: 50 PATHOLOGY: other (appendix) COMPLICATIONS: None Patient was transported to: PACU Patient's condition: stable Indications: 35 year old female with hx of PCOS who presented to the emergency room complaining of waxing and waning right lower quadrant pain for the last 24 hours. She denies fevers or chills, reports nausea without emesis. She last ate two slices of pizza at midnight so she could take ibuprofen. She is currently menstruating and has been for the last 2 weeks. She reports very abnormal menstrual cycles and admits to medical non-compliance. Not currently on any contraception. Basic labs in the ER were essentially normal and CT of the abdomen revealed a mildly enlarged appendix read as appendicitis. She was admitted for observation. Pain has now settled in the RLQ. Her pain is worse with movement now. He WBC count is now elevated dispite antibiotics. Discussed with the patient medical treatment with antibiotics. 50% chance of failure and 30 % chance of recurrance within next 12 months. We lso discussed Laparoscopic appendectomy with possible conversion to open. Patient is at high risk for complications due to her morbid obesity. Complications include but are not limited to injury to bowel, bleeding, hypotension, respiratory issues, wound dehisence, wound infection, hernia development. Patient understands and I have snwered all her questions and she wishes to proceed with [place] appi. Findings: enlarged and thickened appendix Procedure Description: After informed consent was obtained the patient was taken to the operating room placed in the supine position, SCDs were applied as well as monitors. A timeout was done. The patient was then placed under general anesthesia and intubated without any difficulty. Next a Zhao catheter was placed in a standard surgical fashion. At this point the abdomen was prepped and draped in a sterile surgical fashion with chlorhexidine. A second timeout was done and the patient's name, date of , operation to be performed, DVT prophylaxis, antibiotic given, and fire risk was assessed. 0.25% Bupivocaine was injected into the dermis about 5 cm above the umbilicus. This is at the level of the anterior superior spine. A small 2.5 cm incision was made with an 11 blade. Dissection of 5 cm of subcutaneous tissue was done down to the fasci. The fascia was grasped with cockers and the fasci was opened sharply. A 12 mm long port was placed into the abdomen and the abdomen was insufflated. Local anesthetic was then injected into the RLQ. A small 5 mm incision was made with an 11 blade and a long 5 mm port was placed under direct visualization into the abdomen. The local anesthetic was then injected in the left lower quadrant area and a 5 mm incision was made with an 11 blade. A long 5 mm port was then placed under direct visualization. The patient's bed was then turned to the left and head down allowing me to sweep of the small bowel out of the right lower quadrant. The cecum was gently grasped and the appendix was identified. The appendix looked inflammed and thickened at the tip. No purulent fluid was noted. The appendix was grasped at the neck and pulled up slightly allowing me to visualize the junction with the cecum. Using the laparoscopic LigaSure the mesoappendix was slowly transected. Using a laparoscopic straight stapler the appendix was then transected at the junction with the cecum. The appendix was placed into an Endo Catch bag and removed through the 12 mm port site. The port was placed back into the abdomen and the staple line was identified. No bleeding was noted. The transected mesentery was identified and no bleeding was noted. Next Dr. Soto worked on the right Ovarian cyst. Please see her separate Operating room noted. At the end of the case the insufflation was stopped. The 12 mm fascia was closed with a 0 vicryl suture using a Raj Mckeon. The 12 mm port was removed. The 2 5 mm ports were removed and the skin was then closed with 4-0 Vicryl. The skin was cleaned and dried and mastasol and steri-strips were applied. The patient was woken up, extubated and taken back to recovery room in stable condition. There were no immediate complications. Sponge, instrument and needle counts were correct at the end of the case x2.
--- NOTE | 2021-06-15 16:57 | W.PM.PROGNOT ---
Date of Service Date of service: 06/15/21 Time of Service: 13:00 Assessment and Plan Assessment and plan (1) Acute appendicitis: Status: Acute Assessment and plan: 35 year old female with early acute appendicitis as well as a right sided ovarian cyst. I discussed with Ms Aguilar and her Mother non-surgical treatment vs Surgery. We reviewed the risks, and complications of both. I did stress with the patient that she is at a high risk of complications due to her obesity. Patient wished to proceed with Lap appendectomy, possibly open. Risks, benefits and complications have been reviewed. Complications include but are not limited to bleeding, infection, injury to adjacent bowel, abscess formation, staple line leak, inability to do the procedure laparoscopically and adverse reaction to the medications. Questions were entertained and answered to their satisfaction and they wished to proceed. No guarantees were given or implied. (2) Ovarian cyst: Status: Acute (3) Morbid obesity with BMI of 50.0-59.9, adult: Status: Acute (4) ADHD (attention deficit hyperactivity disorder), combined type: Status: Chronic Subjective Subjective Interval history since last seen: Ms Gilliam is a pleasant 35 year old female admitted with abdominal pain and nausea. CT scan was suspicious for early appendicitis. This afternoon her pain has localized to the RLQ and is now constant. She now has pain with movement. Her WBC count has increased despite ABx. Exam Const General: cooperative Nutritional Appearance: obese HENMT Head: normocephalic and atraumatic Resp Effort & Inspection: normal respiratory effort Auscultation: clear to auscultation bilaterally Cardio Rate: regular rate Rhythm: regular rhythm GI Inspection: normal to inspection Palpation: soft and tender in the RLQ; Negative for with no rebound tenderness Objective Last Vital Signs Temp 98.1 F 06/15/21 09:00 Pulse 59 L 06/15/21 09:00 Resp 12 06/15/21 09:00 BP 151/69 H 06/15/21 09:00 Pulse Ox 95 06/15/21 09:00 Laboratory Results - last 24 hr 06/15/21 06/15/21 06/15/21 01:18 01:30 01:30 WBC 10.31 RBC 5.36 H Hgb 13.5 Hct 43.7 MCV 81.5 MCH 25.2 L MCHC 30.9 L RDW 13.6 Plt Count 196 MPV 10.2 Immature Gran % 0.5 Neutrophils % 59.2 Lymphocytes % 31.4 Monocytes % 6.6 Eosinophils % 1.9 Basophils % 0.4 Nucleated RBC % 0 Absolute Neutrophils 6.10 Absolute Lymphocytes 3.24 Absolute Monocytes 0.68 Absolute Eosinophils 0.20 Absolute Basophils 0.04 Sodium 139 Potassium 3.5 Chloride 103 Carbon Dioxide 25.5 Anion Gap 10.5 BUN 11 Creatinine 1.0 Estimated GFR/1.73 m2 >= 60.00 Glucose 144 H Calcium 8.3 L Total Bilirubin 0.3 AST 17 ALT 34 Alkaline Phosphatase 177 H Total Protein 6.9 Albumin 3.5 Lipase 71 Urine Color [place] Urine Clarity Cloudy Urine pH 6.5 Ur Specific [place] 1.025 Urine Protein 30 H Urine Ketones Negative Urine Blood Large H Urine Nitrite Negative Urine Bilirubin Negative Urine Urobilinogen 0.2 Ur Leukocyte Esterase Small H Urine RBC >50 H Urine WBC Ur Epithelial Cells Urine Crystals Not Applicable Urine Bacteria Urine Mucus Not Applicable Ur Culture Indicated? Yes Urine Glucose Negative COVID-19 Source SARS-CoV-2 (PCR) 06/15/21 06/15/21 06/15/21 06:15 06:15 08:05 WBC 12.08 H RBC 5.08 Hgb 12.8 Hct 40.9 MCV 80.5 MCH 25.2 L MCHC 31.3 L RDW 13.4 Plt Count 171 MPV 10.5 Immature Gran % 0.3 Neutrophils % 65.5 Lymphocytes % 26.2 Monocytes % 6.0 Eosinophils % 1.8 Basophils % 0.2 Nucleated RBC % 0 Absolute Neutrophils 7.91 H Absolute Lymphocytes 3.16 Absolute Monocytes 0.72 Absolute Eosinophils 0.22 Absolute Basophils 0.02 Sodium 138 Potassium 3.4 L Chloride 102 Carbon Dioxide 26.2 Anion Gap 9.8 BUN 9 Creatinine 0.8 Estimated GFR/1.73 m2 >= 60.00 Glucose 131 H Calcium 7.7 L Total Bilirubin AST ALT Alkaline Phosphatase Total Protein Albumin Lipase Urine Color Urine Clarity Urine pH Ur Specific [place] Urine Protein Urine Ketones Urine Blood Urine Nitrite Urine Bilirubin Urine Urobilinogen Ur Leukocyte Esterase Urine RBC Urine WBC Ur Epithelial Cells Urine Crystals Urine Bacteria Urine Mucus Ur Culture Indicated? Urine Glucose COVID-19 Source Nasal/Nares SARS-CoV-2 (PCR) Negative PAWSS Have you Been Recently Intoxicated or Drunk Within the Last 30 days?: No Have you Ever Experienced Previous Episodes of Alcohol Withdrawal?: No Result: 0
--- NOTE | 2021-06-15 17:30 | W.ANESPOSTOP ---
Postoperative Evaluation Date, Time and Location Date Performed: 06/15/21 Time Performed: 17:31 Patient Location: PACU Vital Signs Most Recent Imported Vital Signs: Most Recent Vital Signs Temp Pulse Resp BP Pulse Ox 36.5 C 95 H 16 124/62 93 06/15/21 17:10 06/15/21 17:10 06/15/21 17:10 06/15/21 17:10 06/15/21 17:10 Pain Score Most Recent Pain Score: Most Recent Pain Score Pain Level 0 06/15/21 17:10 Assessment Mental Status: Awake (Alert & Oriented to Patient Baseline) Airway and Respiratory Function: Abnormal Respiratory exam (See explanation) (encouraged to cough and deep breath, still states that she does not smoke, over night spo2/co2 ordered. ) Cardiovascular Function: Hemodynamically Stable Hydration Status: Adequately Hydrated Nausea & Vomiting: No Nausea or Vomiting Pain: Pain is tolerable per patient Peripheral Nerve Block: Patient did not receive a nerve block
[2021-06-15] MEDS: Normal Saline Flush 10 ML SYR IVP ×2 (20:43→23:55)
[2021-06-15] MEDS: Ketorolac 30 MG/ML VIAL IVP (20:43)
[2021-06-15] MEDS: MORPHine 2 MG/ML SYR IVP (23:55)
[2021-06-16] MEDS: Lactated Ringers 1,000 ML 75 ML IV (03:07)
[2021-06-16] MEDS: Ketorolac 30 MG/ML VIAL IVP (05:12)
[2021-06-16] MEDS: metroNIDAZOLE 500 MG/100 ML BAG 100 MG IVPB ×2 (05:13→11:25)
[2021-06-16] MEDS: Normal Saline Flush 10 ML SYR IVP ×3 (05:13→10:52)
[2021-06-16 06:38] VITALS: RESP 18
[2021-06-16 07:34] VITALS: BP 119/72; PULSE 61; RESP 18; TEMP 36.4; O2SAT 95
[2021-06-16] MEDS: Enoxaparin 40 MG/0.4 ML SYR SC (08:32)
[2021-06-16] MEDS: Multivitamin TAB 1 TAB PO (08:33)
[2021-06-16] MEDS: Citalopram 20 MG TAB PO (08:33)
[2021-06-16] MEDS: buPROPion-XL 150 MG TABCR PO (08:33)
[2021-06-16] MEDS: Cholecalciferol (Vitamin D3) 400 UNIT TAB PO (08:55)
[2021-06-16] MEDS: ACETAMINOPHEN 1,000 MG/100 ML BTL 400 MG IVPB (09:07)
[2021-06-16] MEDS: Normal Saline 500 ML 30 ML IV (09:08)
--- NOTE | 2021-06-16 09:12 | W.PM.PROGNOT ---
Documented by User: MADY Chaudhry 06/16/21 09:17 Date of Service Date of service: 06/16/21 Time of Service: 09:12 Assessment and Plan Assessment and plan (1) Acute appendicitis: Status: Acute Assessment and plan: POD #1 s/p appendectomy and right ovarian cystectomy with Dr. Camilo and Dr. Elkins. Pain is well controlled (+) Flatus, No BM Incision sites are dressed with gauze and tape. Strongly encouraged sitting in the chair and ambulation Regular diet P// Increase activity and await to see how she tolerates breakfast (2) Ovarian cyst: Status: Acute (3) Morbid obesity with BMI of 50.0-59.9, adult: Status: Acute (4) ADHD (attention deficit hyperactivity disorder), combined type: Status: Chronic Subjective Subjective Interval history since last seen: Patient reports she slept well last night. She states that her abdomen is sore. Exam Const General: cooperative, healthy appearing and comfortable Orientation: alert and oriented x3 Resp Effort & Inspection: normal respiratory effort, no audible wheezes and no cough GI Inspection: obesity Palpation: soft, guarding in the RLQ and tender in the RLQ Auscultation: hypoactive bowel sounds Objective Last Vital Signs Temp 36.4 C L 06/16/21 07:34 Pulse 61 06/16/21 07:34 Resp 18 06/16/21 07:34 BP 119/72 06/16/21 07:34 Pulse Ox 95 06/16/21 07:34 PAWSS Have you Been Recently Intoxicated or Drunk Within the Last 30 days?: No Have you Ever Experienced Previous Episodes of Alcohol Withdrawal?: No Result: 0 Documented by User: Madelyn Odonnell DO 06/16/21 16:30 Assessment and Plan Assessment and plan (1) Acute appendicitis: Status: Acute Assessment and plan: POD #1 s/p appendectomy and right ovarian cystectomy with Dr. Camilo and Dr. Elkins. Pain is well controlled (+) Flatus, No BM Incision sites are dressed with gauze and tape. Strongly encouraged sitting in the chair and ambulation Regular diet P// Increase activity and await to see how she tolerates breakfast pt seen and examined. agree w/ above. reviewed w/ pt wound care/diet/activity and warning sings. f/u w/ Dr. Camilo in 2wks- appt made. F/u w/ Dr. Le in 2-3wks regarding a cyst (2) Ovarian cyst: Status: Acute (3) Morbid obesity with BMI of 50.0-59.9, adult: Status: Acute (4) ADHD (attention deficit hyperactivity disorder), combined type: Status: Chronic PAWSS Result: 0
[2021-06-16] MEDS: Pantoprazole 40 MG VIAL IVP (09:44)
--- NOTE | 2021-06-16 10:07 | W.PM.PROGNOT ---
Date of Service Date of service: 06/16/21 Time of Service: 10:07 Assessment and Plan Assessment and plan (1) Ovarian cyst: Status: Acute Assessment and plan: s/p R ovarian cystectomy. Will notify pt of results of path analysis of cyst wall (2) Acute appendicitis: Status: Acute (3) Morbid obesity with BMI of 50.0-59.9, adult: Status: Acute (4) Abnormal uterine bleeding (AUB): Status: Acute Assessment and plan: Pt counseled today regarding IUD for BC and menstrual regulation. Will arrange f.u visit with [facility] in near future. (5) S/P laparoscopic appendectomy: Status: Acute Assessment and plan: satisfactory recovery. [facility] colleague will determine events around pt's discharge home. Exam Narrative Exam Narrative: Pt was admitted early on 06/15/21 for RLQ pain. Imaging studies confirmed appendicitis and R ovarian cyst. She underwent laparoscopic appendectomy and R ovarian cystectomy. POD 1. Pt reports feeling OK. Some pain in certain positions but otherwise RLQ pain has subsided. Const General: comfortable Nutritional Appearance: obese Orientation: alert, awake and oriented x3 GI Inspection: no abdominal wall ecchymosis, no edema and incision (covered with dressing. Serrous sanguinous discharge at umbilical port.) Percussion: normal to percussion General: deferred Extrem General: normal to inspection (sitting up in bedside armchair.) Psych Appearance: grossly normal Mental Status: mental status grossly normal Speech and Movement: speech and movement normal Objective Last Vital Signs Temp 97.5 F L 06/16/21 07:34 Pulse 61 06/16/21 07:34 Resp 18 06/16/21 07:34 BP 119/72 06/16/21 07:34 Pulse Ox 95 06/16/21 07:34 PAWSS Have you Been Recently Intoxicated or Drunk Within the Last 30 days?: No Have you Ever Experienced Previous Episodes of Alcohol Withdrawal?: No Result: 0
[2021-06-16] MEDS: CIPROFLOXACIN 200 MG/100 ML BAG 100 MG IVPB (10:08)
[2021-06-16] MEDS: MORPHine 2 MG/ML SYR IVP (10:52)
--- NOTE | 2021-06-16 14:31 | DSE_ITS ---
Date of service: 06/16/21 Time of Service: 14:32 DS: Diagnosis Discharge Diagnosis (1) Ovarian cyst: Status: Acute (2) Acute appendicitis: Status: Acute (3) Morbid obesity with BMI of 50.0-59.9, adult: Status: Acute (4) Abnormal uterine bleeding (AUB): Status: Acute (5) S/P laparoscopic appendectomy: Status: Acute Discharge Plan Disposition Patient Disposition: HOME Condition: Stable Discharge Details Reason For Visit: Abdominal Pain Admit Date/Time: 06/15/21 03:06 Admit Provider: Lucina Guo Attending Provider: Luicna Guo Primary Care Provider: Yana Freeman Home Meds and New Rx's Prescriptions: New tramadol [Ultram] 50 mg tablet 50 mg PO Q6H PRNQty: 7 0RF Rx Instructions: will cause constipation Continued ibuprofen 800 mg tablet 800 mg PO Q8H 0RF valacyclovir [Valtrex] 500 mg tablet 500 mg PO BID Qty: 6 3RF bupropion HCl [Wellbutrin XL] 150 mg tablet extended release 24 hr 150 mg PO QAM Qty: 90 3RF citalopram 20 mg tablet 20 mg PO DAILY Qty: 90 3RF acetaminophen [Tylenol] 325 MG tablet 650 mg PO Q4H PRN PRN0RF multivitamin Tablet 1 tab PO DAILY 0RF cholecalciferol (vitamin D3) [Vitamin D3] 10 mcg (400 unit) Capsule 10 mcg PO DAILY 0RF Discharge Instructions Additional Instructions: Keep an ice bag on the incision. 20 minutes on and 20 minutes off. Ice keeps the swelling down and swelling causes pain. Make sure you wrap the ice pack in a towel and don't apply directly to the skin. -MEDICATIONS: Alternate Tylenol 1000mg by mouth every 8 hours and Ibuprofen 600mg every 6 hours. ?Make sure you take ibuprofen with food and not on an empty stomach. ?Take the Tylenol and ibuprofen continuously for the first 72hrs- not just when you have pain.? Use the tramadol for breakthrough pain.? Use ICE!?? Twenty minutes on, and then off, continuously for the first 72hours. If you are taking narcotic pain medication, follow the instructions on the label and do not drive. Pain medications can make you very constipated. Make sure you are moving your bowels daily. If not, take Miralax, milk of magnesia or magnesium citrate.?? Anesthesia makes you very constipated.? Take a dose of milk of magnesia the morning after surgery. -No driving x 72 hrs or of you are taking narcotic pain medications. -If you have liz or sutures in place, they will be removed at your clinic ap pointment in 7-10 days. -Do Not remove any steri tapes (white tapes) that cover the incision. If you have steri-tapes on your incision, do not use antibacterial ointment. -Follow-up with Dr. Camilo in 2 wks -F/u w/ Rey Sampson in 2-3 wks -regular diet/no restrictions. -no straining to move bowels -pain meds are very constipating: if you do not move your bowels daily take a dose of OTC milk of magnesia -It is ok to shower. No bathe, soaking, swimming or hot tubs -Keep wound clean and dry. Wash incision with soap and water daily. Pat dry, don't rub. -If you do not have steri-tapes on your incision, than keep the wound covered with a gauze and antibacterial ointment. -You may find that your appetite is smaller. Eat 3-6 small meals throughout the day. It is important to drink lots of water after surgery, 6-10 glasses a day. -If you were given an incentive spirometry (breathing collections analyst?), continue to do this 10x/hour while awake. -We do want you up walking, at least 5-6 times per day. This is very important to prevent pneumonia and blood clots. You can climb stairs, take them slowly. -No lifting over 5 pounds. This is very important to avoid developing a hernia in your incision. -You may find that you are very tired after surgery- this is normal. -please do not smoke for a minimum of 72 hours after surgery. -off of work until 06/23. Ok to resume work 06/24. No lifting over 5#'s until 07/01. Activity:: see above Equipment/Supplies:: No Equipment Needed Diet:: As Tolerated Discharge Orders Discharge Orders: Discharge Order (Routine); Ordered 06/16/21 Ordered By: Madelyn dOonnell DS: Summary Time Spent with Patient providing and/or coordinating discharge services: Less than 30 minutes Status at Discharge Functional status at discharge: independent ambulation Overall status at discharge: patient is back to baseline Mental Status: mental status grossly normal Speech and Movement: speech and movement normal Mood: congruent mood Affect: normal affect Exam Psych Mental Status: mental status grossly normal Speech and Movement: speech and movement normal Mood: congruent mood Affect: normal affect DS: Data Vitals/I&O Vitals and I&O: Vital Signs Temperature 36.4 C L 06/16/21 07:34 Temperature Source Tympanic 06/16/21 07:34 Pulse 61 06/16/21 07:34 Pulse Rhythm Regular 06/16/21 08:45 Respiratory Rate 18 06/16/21 07:34 Respiratory Effort Non-Labored 06/16/21 08:45 Respiratory Depth Normal 06/16/21 08:45 Respiratory Pattern Normal 06/16/21 08:45 Blood Pressure 119/72 06/16/21 07:34 Blood Pressure Mean 113 06/15/21 06:13 Pulse Oximetry 95 06/16/21 07:34 Respiratory End-tidal CO2 44 06/15/21 17:25 Oxygen Delivery Method Room Air 06/16/21 07:34 Oxygen Flow Rate 0 06/16/21 07:34 Pain Level 4 06/16/21 10:52 Intake & Output 06/15/21 06/16/21 06/16/21 23:59 11:59 23:59 Intake Total 2371.5 / 5461.083 1104.75 / 1385.75 281 / 1385.75 Output Total 1300 / 1800 2200 / 2200 Balance 1071.5 / 3661.083 -1095.25 / -814.25 281 / -814.25 Weight 143.335 kg Intake: IV 2071.5 / 5161.083 804.75 / 845.75 41 / 845.75 Oral 300 / 300 300 / 540 240 / 540 Output: Urine 1300 / 1800 2200 / 2200 Other: Urine Color Yellow Dark Jahaira Urine Appearance Clear Sediment Urine Odor Normal Normal Emesis Description None Voiding Methods Toilet Toilet Data Completed and Pending Labs on day of discharge: Preliminary micro results at discharge 06/15/21 01:18 Urine Culture - Preliminary Urine - Reflex from Ua Gram Positive Mary,Mixed PFSH All Active Problems (Updated 06/16/21 @ 10:12 by Vonnie Elkins MD) S/P laparoscopic appendectomy (Acute) 06/15/21. along with R ovarian cystectomy. Abnormal uterine bleeding (AUB) (Acute) Morbid obesity with BMI of 50.0-59.9, adult (Acute) Acute appendicitis (Acute) Ovarian cyst (Acute) Elevated alkaline phosphatase level (Acute) Amenorrhea (Acute) Hyperlipidemia, unspecified (Acute) Binge eating disorder (Chronic) Plantar fasciitis, right (Chronic) Obesity (Chronic) Low back pain (Acute) Elevated liver enzymes (Acute) IFG (impaired fasting glucose) (Chronic) ADHD (attention deficit hyperactivity disorder), combined type (Chronic) 01/19/2018 Psychiatry consult (Dr. 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) PCOS (polycystic ovarian syndrome) (Chronic 10/28/14) Metformin Rx in the past Hepatic steatosis (Chronic 08/14/13) Depression (Chronic 02/13/16) Side effects with sertraline Alcohol consumption binge drinking (Chronic 04/28/15) Medical History Spondylolisthesis S/p surgery Surgical History Back surgery x2 in 2000 For spondylolisthesis, then staph infection complication Family History Father Essential hypertension Hyperlipidemia Brother Anxiety Brother Autistic spectrum disorder Other Hypothyroidism Social History Smoking/Tobacco Use Status: Never Smoking risk assessment performed?: Yes Alcohol Intake: current Alcohol Intake frequency: a few times a week Drug use: Occasionally Substance use type: crack/cocaine and hallucinogens Adopted: No Caregiver/Support person: No Foster care: No Housing: apartment Communication Needs: None Do you need help understanding health information?: Never 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 [employer] Pets and animals: Yes Pets and animals: cat(s) Sexually active: Yes Do you think of yourself as: bisexual Current gender identity: female What is your relationship status?: never How often do you talk on the phone with friends or family?: three or more times per week How often do you get together with friends or relatives?: three or more times per week Do you belong to any clubs or organized social groups?: no Panel score (0-1 are the most socially isolated patients): 1 What type of physical activity do you participate in: regular exercise Duration: 15-30 minutes/day Frequency: 1-2 times per week Reena/Temple: None Special reena needs: No Seatbelt use: sometimes Helmet use: Yes Drive intox or ride w/intox passenger coach driver: No Working smoke detector in home: Yes Fire extinguisher in home: Yes Carbon monox detector in home: Yes Firearms in home: No Do you feel safe at home: Yes Do you feel safe in your relationship?: Yes Female Reproductive History Menstrual control method: none History History 0 Para Hx # Term Pregnancies Multiple births Hx # Pregnancies Ectopic pregnancies AB induced Hx Number of Living Children AB spontaneous
--- NOTE | 2021-06-16 16:40 | CHAPLAIN ---
Rahel said she came in for what she thought were bad period cramps and ended up having an ovarian cyst removed as well as her appendix. 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 She was grateful that her surgeries were laproscopic and and healing time will be minimal.
--- NOTE | 2021-06-16 19:58 | PDOC.CMIN ---
- If Service Date Differs Date of service: 06/16/21 Time of Service: 19:58 Care Management Initial Assess REASON FOR HOSPITALIZATION:: Abdominal pain PAST MEDICAL HISTORY/PAST SURGICAL HISTORY:: All Active Problems (Updated 06/15/21 @ 03:21 by Brodie Marino DO). Acute appendicitis (Acute). Ovarian cyst (Acute). Elevated alkaline phosphatase level (Acute). Amenorrhea (Acute). Hyperlipidemia, unspecified (Acute). Binge eating disorder (Chronic). Plantar fasciitis, right (Chronic). Obesity (Chronic). Low back pain (Acute). Elevated liver enzymes (Acute). IFG (impaired fasting glucose) (Chronic). ADHD (attention deficit hyperactivity disorder), combined type (Chronic). 01/19/2018 Psychiatry consult (Dr. Lucero). 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 PCOS (polycystic ovarian syndrome) (Chronic 10/28/14). Metformin Rx in the past. Hepatic steatosis (Chronic 08/14/13). Depression (Chronic 02/13/16). Side effects with sertraline. Alcohol consumption binge drinking (Chronic 04/28/15). Medical History . Spondylolisthesis. S/p surgery. Surgical History . Back surgery. x2 in 2000. For spondylolisthesis, then staph infection complication PREVIOUS FUNCTIONAL STATUS/SOCIAL/FAMILY SUPPORTS:: Rahel lives in an apartment in [facility], [facility]. Her parents live nearby, and are very supportive. 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 She is independent at baseline. CURRENT FUNCTIONAL STATUS:: Rahel was sitting up in bed when CM met with her. She had previously been walking around the halls, and stated that she is now feeling more pain after ambulation. She reported that she is having her diet advanced for lunch, and may be able to discharge, per provider, if she tolerates her lunch. Later, she was discharged with follow up appointments. She did not share any concerns with CM regarding her discharge. ADVANCE DIRECTIVES:: None on file. Has patient been provided with info about the portal/API?: Yes Did the patient sign up for the portal?: Yes (active) CODE STATUS:: Full Code INSURANCE COVERAGE / FINANCIAL ISSUES:: [employer]/ Fin assist 70% CURRENT HOME/COMMUNITY SERVICES/EQUIPMENT:: No services or equipment. PRIMARY CARE PHYSICIAN:: Yana Freeman POTENTIAL DISCHARGE NEEDS:: follow up appointments PATIENT/FAMILY EDUCATION NEEDS:: Review discharge instructions and limitations, discussion of self care needs including ask me three. ANTICIPATED BARRIERS TO DISCHARGE:: None TRANSPORTATION:: Via private vehicle by her parents. PLAN:: Rahel will return home once medically cleared. She will follow up with her PCP and discharge plan of care. Her mother will drive her home via private vehicle. She is happy to be returning home.
--- NOTE | 2021-06-16 20:06 | PDOC.CMDIS ---
- If Service Date Differs Date of service: 06/16/21 Time of Service: 20:06 LACE Index Scoring Tool - Questions: Length of Stay (in days): 1 Acuity (Admit via E.D.?): Yes E.D. Visits: 1 - Answers: Total Score: 5 Risk of Readmission: Low Risk Care Management Discharge Reason for Hospitalization: Abdominal pain Discharge Plan: Rahel returned home today with no new services. She was driven home via private vehicle by her mother. She will follow up with her PCP and discharge plan of care. Patient/Family Education Needs: Review discharge instructions and limitations, discussion of self care needs including ask me three.
--- NOTE | 2021-06-17 08:43 | W.PM.OP ---
Date of service: 06/15/21 Time of Service: 16:00 Operative Note Operative Note DATE OF PROCEDURE: 06/15/21 PRE-OP DIAGNOSIS: R sided abdominal pain. Appendicitis. R ovarian cyst. POST-OP DIAGNOSIS: same PROCEDURE: Laparoscopic appendectomy performed by Dr. Camilo, R ovarian cystectomy performed by Dr Elkins SURGEON: Daniela Camilo ASSISTING SURGEON: Vonnie Elkins Refer to Anesthesia Record ESTIMATED BLOOD LOSS: 50 PATHOLOGY: other (appendix, fragments of ovarian cyst wall.) COMPLICATIONS: None Patient was transported to: PACU Patient's condition: stable Indications: 35yoG0 female with sudden onset of RLQ pain evening of 06/15/21. Imaging studies confirmed the presence of an appendicitis and a right ovary measuring 6 x 4.3 x 6 cm containing a cyst 4.8 x 3.4 x 4.6 cm. within this cystic component was a separate solid component measuring 2.6 x 1 x 2.1 cm. Findings: Appendix: intact. R ovary: clear fluid. No solid component detected. Procedure Description: The entry into the abdomen and the insertion of the trochars for surgery was performed by myself and Dr. Camilo. She has dictated that portion of the procedure including the laparoscopic appendectomy. After the pt's vagina had been prepped with Betadine a [employer] uterine manipulator was attatched to the cervix and left in place until the completion of the procedure. I will begin my dictation at the completion of Dr. Camilo's portion of the case. The right ovary was located,grasped and carefully inspected. An attempt at needle aspiration of the cyst was performed however it resulted in leakage of clear fluid from the cyst. The cyst wall incision was then extended in a vertical fashion and the cyst contents suction aspirated. The cyst wall was identified, grasped and peeled away from the ovarian cyst wall. It was removed and several pieces. At the completion of the extraction of the cyst wall the ovary bed was copiously irrigated with normal saline. Initial attempt at placing a Surgicel for hemostasis was unsuccessful. Surgicel bunched up in did not remain inside of the cyst cavity. Surgicel was then removed and the edges of the ovarian cyst wall were cauterized with a Ligasure device in a circumferential fashion. This provided hemostatsis. The pelvic irrigation fluid was suction aspirated and final inspection of the right ovary showed it to be hemostatic. A Raj Mckeon device was used to close the umbilical fascia. The pneumoperitoneum was reduced and trochars were removed. The edges of the trocar sites were reapproximated with a subcuticular closure of 4-0 Monocryl and 4-0 Vicryl. The [place] uterine repleted was removed from the cervix and the tenaculum site noted to be hemostatic. Zhao catheter was removed. Patient was awakened extubated and transported to recovery area in stable condition all sponge lap needle counts correct x2
== END 2021-06-16 16:40 | disposition home or self-care (01) | DRG 342 ==
LOC: ER 04:53 → MS 13:24
PROVIDERS: Obstetrics & Gynecology Gynecology; Surgery; Admitting Provider Surgery; Emergency Provider Student in an Organized Health Care Education/Training Program; PCP Nurse Practitioner Family; Visit Provider Surgery
PROC: 0DTJ4ZZ Resection of Appendix, Percutaneous Endoscopic Approach (ICD-10-PCS; CPT 44970; principal; 2021-06-15 14:30)
PROC: 0UB04ZZ Excision of Right Ovary, Percutaneous Endoscopic Approach (ICD-10-PCS; CPT 58662; 2021-06-15 14:30)
DX: K35.890 Other acute appendicitis without perforation or gangrene (principal); N83.11 Corpus luteum cyst of right ovary; E28.2 Polycystic ovarian syndrome; N93.8 Other specified abnormal uterine and vaginal bleeding; Z68.43 Body mass index [BMI] 50.0-59.9, adult; E66.01 Morbid (severe) obesity due to excess calories; F50.81 Binge eating disorder; E78.5 Hyperlipidemia, unspecified; M54.50 Low back pain, unspecified; R74.8 Abnormal levels of other serum enzymes; F90.2 Attention-deficit hyperactivity disorder, combined type; M72.2 Plantar fascial fibromatosis; K76.0 Fatty (change of) liver, not elsewhere classified; F32.5 Major depressive disorder, single episode, in full remission; F19.90 Other psychoactive substance use, unspecified, uncomplicated
CPT/HCPCS: 44970; 58662; 36415; 80048; 80053; 81025; 83690; 87635; 88305; 96361; 96365; 96366; 96367; 96375; 99285; J1650; 74177; 76830; 76856; 81003; 81015; 85025; 87086; 88304; G0378; J0131; J0744; J1100; J1885; J2001; J2250; J2270; J2405; J3475; J3490

== ENCOUNTER 2021-06-25 17:49 | Outpatient (REF) | payer OTHER, SELFPAY | END 2021-06-25 17:50 | disposition home or self-care (01) | LOC: LBN 17:49 | PROVIDERS: PCP Nurse Practitioner Family; Visit Provider Obstetrics & Gynecology | DX: B37.3 Candidiasis of vulva and vagina (principal); Z11.8 Encounter for screening for other infectious and parasitic diseases | CPT/HCPCS: 87480; 87510; 87660 ==

== ENCOUNTER 2021-10-12 09:51 | Observation (INO) | payer OTHER, SELFPAY ==
[2021-10-12] VITALS (24 sets, daily range): BP systolic 102–161; BP diastolic 34–94; PULSE 70–131; RESP 14–30; TEMP 36.9–39.3; O2SAT 93–100
--- NOTE | 2021-10-12 10:36 | ED.GENADUL_ITS ---
Discharge Plan Disposition Patient Disposition: [facility] INPATIENT Condition: Improving Discharge Details Clinical Impression: Cellulitis Admit Date/Time: 10/12/21 17:11 Admit Provider: Daniela Camilo Attending Provider: Daniela Camilo Primary Care Provider: Yana Freeman ED Provider: Luanne Chao Discharge Data Discharge Date/Time-TO BE ENTERED AT DEPARTURE: 10/12/21 18:56 Medical Decision Making <MADY Ramirez - Last Filed: 10/25/21 14:40> Patient is a pleasant 36 year old female prsenting today with c/c of LLE erythema, warmth, pain, general malaise, fever. She states that yesterday she s tarted having fever. States that she was feeling generally unwell and after onset of these more systemic symptoms, began noting pain in the LLE. Has had erythema, warmth and tenderness. Has had fevers at home, has been using OTC medications. States she has been admittetd historically for cellulitis but that it has been several years ago. She denies any cough, SOB, CP, GRANGER, neck pain, GI upset. On exam, patient appears fatigued, she is febrile. Appears ill. She has erythema, warmth and pain over well defined area on LLE. This was marked. this is not circumfrential. No crepitus, no area of fluctance. Her significant fevers with sudden progression has me concerned for possible necrotizing fasciitis. Will obtain XR of the leg, begin abx. Patient has alleergies to penicillin and amoxicillin. Will give vancomycin and hydration. XR reviewed by radiologist: INDINGS: BONES: No acute fracture is present. No bony destructive lesion is seen. There degenerative changes of the the femoral tibial joints.? Degenerative changes medial ankle joint. SOFT TISSUE: Mild edema.? No foreign body or gas collection. IMPRESSION: Soft tissue edema.? No evidence of necrotizing fasciitis Reevaluated the patient. The erythema has not spread. However, as the patient is getting the Vanco, she began having itchiness. No shortness of breath, notable rash, wheezing. Stop the Vanco and will give IV Benadryl. Patient has no evidence at this time for anaphylactic reaction. Will transition to Clindamycin. Patient eating and drinking in the room. Despite receiving both Tylenol and ibuprofen, patient's temp continues to rise at 39.3. I have continued to do regular checks on the area of erythema that was marked on her initial evaluation and she is not spreading beyond the margins. Patient only complaint is general malaise which she associates with the fever as well as focal tenderness in the left lower extremity. Patient clearly needs admission for cellulitis and se pticemia. However, I do feel that evaluation at this time with general surgery would be appropriate. Consulted with Dr. Camilo who recommended CT of the LLE. FINDINGS: OSSEOUS: No fractures.? Degenerative changes in the knee.? Small knee joint effusion.? No osseous lesions.? No evidence of osteomyelitis SOFT TISSUES: Subcutaneous soft tissue edema anteriorly.? No drainable fluid co llection. IMPRESSION: There is anterior subcutaneous edema but no true fluid collection identified.? There are osteoarthritic degenerative changes in the knee and there is a small knee joint effusion.? No fracture evident. Consulted with Dr. Camilo again regarding care and admission. She agrees to admission, evaluated patient in the department. Discussed paln at length with patient who is in agreemetn with plan for admission for cellulitis 1747: [place]: Patient not seen by me. Patient was dispositioned by my colleague prior to signout and my evaluation with her. <Luanne Chao NP - Last Filed: 10/15/21 11:28> Patient is a pleasant 36 year old female prsenting today with c/c of LLE erythema, warmth, pain, general malaise, fever. She states that yesterday she started having fever. reevaluated the patient. The erythema has not spread. However, as the patient is getting the Vanco, she began having itchiness. No shortness of breath, notable rash, wheezing. Stop the Vanco and will give IV Benadryl. Patient has no evidence at this time for anaphylactic reaction. Patient eating and drinking in the room. Despite receiving both Tylenol and ibuprofen, patient's temp continues to rise at 39.3. I have continued to do regular checks on the area of erythema that was marked on her initial evaluation and she is not spreading beyond the margins. Patient only complaint is general malaise which she associates with the fever as well as focal tenderness in the left lower extremity. Patient clearly needs admission for cellulitis and septicemia. However, I do feel that evaluation at this time with general surge ry would be appropriate. 1747: [place]: Patient not seen by me. Patient was dispositioned by my colleague prior to signout and my evaluation with her. Imaging Data Radiologic Study: Imaging: CT Scan Radiologist's impression: Imaging protocol: CT of the Left lower extremity with intravenous contrast was performed. Exam focused on the lower leg. Contrast material: 350; Contrast volume: 100 ml; Contrast route: INTRAVENOUS (IV); COMPARISON: CR XR TIB/FIB LT 10/12/2021 11:20 AM FINDINGS: Bones/joints: Moderate knee joint effusion. Degenerative arthritis in the knee with tricompartment marginal osteophyte formation. Soft tissues: Subcutaneous edema on the anterior aspect of the ashley. No fluid collection identified. Subcutaneous calcifications within the most marked area of edema in the mid ashley. IMPRESSION: 1. Anterior subcutaneous edema. No fluid collection identified 2. Degenerative arthritis in the knee. Thank you for allowing us to participate in the care of your patient. Dictated and Authenticated by: Ness Delgado MD HPI <MADY Ramirez - Last Filed: 10/25/21 14:40> General Date/Time Provider Initiated Documentation: 10/12/21 10:01 . Limitations to Documentation: no limitations . Information obtained by: patient and RN notes reviewed . History of Present Illness 36 year old F presents to the emergency department with the chief complaint of fevers, LLE erythema and pain, described as severe, with intensity rated at 9. Quality is described as burning, and is localized to the left and lower extremity. Patient reports no radiation. Patient started experiencing this day(s) and it has been constant. No relieving factors impr ove symptom(s), No exacerbating factors reported . Patient notes diaphoresis, fever/chills, loss of appetite, malaise and rash; denies chest pain, cough, nausea/vomiting, shortness of breath and weakness. Patient did receive the following treatments prior to arrival, none Related Data Home Medications Medication Instructions Recorded Confirmed acetaminophen 325 mg tablet 650 mg PO Q4H PRN PRN 01/03/17 10/21/21 (Tylenol) ibuprofen 800 mg tablet 800 mg PO Q8H 08/22/19 10/21/21 bupropion HCl 150 mg 24 hr tablet, 150 mg PO QAM #90 tab-caps 01/22/21 10/21/21 extended release (Wellbutrin XL) citalopram 20 mg tablet 20 mg PO DAILY #90 tab-caps 01/22/21 10/21/21 cholecalciferol (vitamin D3) 10 10 mcg PO DAILY 06/15/21 10/21/21 mcg (400 unit) capsule (Vitamin D3) multivitamin 1 tab PO DAILY 06/15/21 10/21/21 levonorgestrel 20 mcg/24 hours (7 1 device intrauterine ONCE #1 ea 07/02/21 10/21/21 yrs) 52 mg intrauterine device (Mirena) valacyclovir 500 mg tablet 500 mg PO BID #6 tabs 08/10/21 10/21/21 (Valtrex) ergocalciferol (vitamin D2) 1,250 1,250 mcg PO QWEEK 08/21/21 10/21/21 mcg (50,000 unit) capsule spironolactone 50 mg tablet 50 mg PO BID 08/21/21 10/21/21 metformin 750 mg tablet,extended 750 mg PO BID 10/12/21 10/21/21 release 24 hr sulfamethoxazole 800 1 tab PO BID #28 tabs 10/14/21 10/21/21 mg-trimethoprim 160 mg tablet lysine 500 mg tablet (L-Lysine) 500 mg PO DAILY 10/21/21 10/21/21 Previous Rx's Medication Instructions Recorded acetaminophen 325 mg tablet 650 mg PO Q4H PRN PRN 01/03/17 (Tylenol) bupropion HCl 150 mg 24 hr tablet, 150 mg PO QAM #90 tab-caps 01/22/21 extended release (Wellbutrin XL) citalopram 20 mg tablet 20 mg PO DAILY #90 tab-caps 01/22/21 levonorgestrel 20 mcg/24 hours (7 1 device intrauterine ONCE #1 ea 07/02/21 yrs) 52 mg intrauterine device (Mirena) valacyclovir 500 mg tablet 500 mg PO BID #6 tabs 08/10/21 (Valtrex) sulfamethoxazole 800 1 tab PO BID #28 tabs 10/14/21 mg-trimethoprim 160 mg tablet Allergies Allergy/AdvReac Type Severity Reaction Status Date / Time vancomycin Allergy Intermediate Itching Unverified 10/21/21 10:22 penicillin V Allergy Mild Swelling, Verified 10/21/21 10:22 rash,itchy face especially around eyes. amoxicillin Allergy Skin Rash Verified 10/21/21 10:22 General Stated Complaint: Cellulitis FRANCIE: 3 Review of Systems <MADY Ramirez - Last Filed: 10/25/21 14:40> Constitutional Constitutional: Reports as per HPI Musculoskeletal Musculoskeletal: Reports as per HPI Integumentary/Breasts Skin/Breast: Reports as per HPI Neurologic Neurologic: Reports as per HPI, Denies sensory deficit and Denies paresthesias PFSH <MADY Ramirez - Last Filed: 10/25/21 14:40> All Active Problems (Updated 10/15/21 @ 11:28 by Luanne Chao NP) Cellulitis (Acute) Medical History Acute appendicitis Alcohol consumption binge drinking (04/28/15) Elevated alkaline phosphatase level Hyperlipidemia, unspecified Low back pain PCOS (polycystic ovarian syndrome) (10/28/14) Metformin Rx in the past Plantar fasciitis, right Spondylolisthesis S/p surgery Surgical History Back surgery x2 in 2000 For spondylolisthesis, then staph infection complication S/P laparoscopic appendectomy 06/15/21. along with R ovarian cystectomy. Family History Father Essential hypertension Hyperlipidemia Brother Anxiety Brother Autistic spectrum disorder Other Hypothyroidism Social History Smoking/Tobacco Use Status: Never Smoking risk assessment performed?: Yes Alcohol Intake: current Alcohol Intake frequency: a few times a week Drug use: Occasionally Substance use type: crack/cocaine and hallucinogens Details: LSD/Mushrooms/Extasy. 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 [employer] Pets and animals: Yes Pets and animals: cat(s) Sexually active: Yes Do you think of yourself as: bisexual Current gender identity: female What is your relationship status?: never How often do you talk on the phone with friends or family?: three or more times per week How often do you get together with friends or relatives?: three or more times per week Do you belong to any clubs or organized social groups?: no Panel score (0-1 are the most socially isolated patients): 1 What type of physical activity do you participate in: regular exercise Duration: 15-30 minutes/day Frequency: 1-2 times per week Reena/Faith: None Special reena needs: No Seatbelt use: sometimes Helmet use: Yes Drive intox or ride w/intox airport shuttle driver: No Working smoke detector in home: Yes Fire extinguisher in home: Yes Carbon monox detector in home: Yes Firearms in home: No Do you feel safe at home: Yes Do you feel safe in your relationship?: Yes Female Reproductive History Menstrual control method: none History History 0 Para Hx # Term Pregnancies Multiple births Hx # Pregnancies Ectopic pregnancies AB induced Hx Number of Living Children AB spontaneous Exam <MADY Ramirez Last Filed: 10/25/21 14:40> Const General: cooperative, not healthy appearing, comfortable, no acute distress, well developed and ill appearing acutely Nutritional Appearance: well nourished and obese Orientation: alert and awake Resp Effort & Inspection: normal respiratory effort, able to speak in complete sentences and no respiratory distress Auscultation: clear to auscultation bilaterally Cardio Rate: regular rate Rhythm: regular rhythm Heart Sounds: S1 normal and S2 normal GI Inspection: normal to inspection Palpation: nontender Skin General skin exam: erythema Neuro General: patient alert and patient awake Cognition: normal cognition Speech: speech normal Gait: normal gait Sensory Exam: no sensory deficits noted Extrem Upper/lower leg/hip images: 1. Area of erythema, warmth and tenderness. No area of fluctuance, no crepitus. 2+ distal pulses. No posterior involvement. Well defined but no swelling to suggest erysipelas. No break in the skin over the area of erythema. Psych Appearance: grossly normal and well kempt Mental Status: mental status grossly normal Speech and Movement: speech and movement normal Course <MADY Ramirez Last Filed: 10/25/21 14:40> Vital Signs Vital signs: Vital Signs Temperature 38 C H 10/12/21 09:55 Pulse 120 H 10/12/21 09:55 Respiratory Rate 16 10/12/21 09:55 Blood Pressure 161/93 H 10/12/21 09:55 Pulse Oximetry 98 10/12/21 09:55 Temperature 38 C H 10/12/21 09:55 Temperature Source Temporal Artery Scan 10/12/21 09:55 Pulse 120 H 10/12/21 09:55 Respiratory Rate 16 10/12/21 09:55 Respiratory Effort 10/12/21 09:58 Blood Pressure 161/93 H 10/12/21 09:55 Blood Pressure Position Sitting 10/12/21 09:55 Pulse Oximetry 98 10/12/21 09:55 Oxygen Delivery Method Room Air 10/12/21 09:55 Oxygen Flow Rate 0 10/12/21 09:55 Pain Level 4 10/12/21 09:55 Sign Out <MADY Ramirez - Last Filed: 10/25/21 14:40> Sign Out Data: Sign Out Comment: Care transition to [facility] with CT pending. Patient presenting with sudden onset of cellulitis left lower extremity. Concerned that patient has had significant fever with T-max of 39.3 degrees here. Is currently drowned trending and is afebrile at this time. CRP and white count both elevated. Patient initially received vancomycin as there was concern for potential necrotizing fasciitis but she developed itchiness. Vancomycin was stopped and patient was given Benadryl, full resolution of her symptoms. Then gave IV clindamycin which she tolerated well. Patient is allergic to penicillin. Initial imaging did not show any gas. Consulted with general surgery who recommended CT of the lower extremity for further evaluation of potential necrotizing fasciitis. At the time of transition of care, patient is in CT. Will need admission. Last updated by Thu Mclean PA at 10/12/21 16:46 PAWSS <MADY Ramirez - Last Filed: 10/25/21 14:40> Have you Been Recently Intoxicated or Drunk Within the Last 30 days?: Yes Have you Ever Experienced Previous Episodes of Alcohol Withdrawal?: No Have you ever Experienced Withdrawal Seizures?: No Have you ever Experienced Delirium Tremens(DT)s?: No Have you ever undergone Alcohol Rehabilitation Treatment (i.e, inpt ot outpatient treatment programs)?: No Have you ever Experienced Blackouts?: Yes Have you ever Combined Alcohol with other Downers within the last 90 days?: No Have you ever Combined Alcohol with any other Substance of Abuse during the last 90 days?: Yes Positive Blood Alcohol level on Presentation? [PCS.BAL]: No Evidence of Increased Autonomic Activity (i.e. HR>120, tremor, sweating, agitation, nausea)?: No Result: 4 <Luanne Chao NP - Last Filed: 10/15/21 11:28> Result: 4
[2021-10-12] MEDS: Normal Saline 1,000 ML 1000 ML IV (10:58)
[2021-10-12] MEDS: ACETAMINOPHEN 1,000 MG/100 ML BTL 400 MG IVPB (10:59)
[2021-10-12 11:09] LABS: Lactate 1.2 mmol/L (0.6-1.4)
[2021-10-12 11:12] LABS: Abs Immature Grans 0.07 10^3/uL (0.0-0.06); Absolute Basophil Count 0.03 10^3/uL (0.0-0.2); Absolute Eosinophil Count 0.02 10^3/uL (0.0-0.7); Absolute Lymphocyte Count 1.94 10^3/uL (1.2-3.4); Absolute Neutrophil Count 14.67 10^3/uL (1.2-6.7); Basophils % 0.2; Eosinophils % 0.1; HCT 44.3 % (36.0-46.0); HGB 13.8 g/dL (11.2-15.7); Immature Grans % 0.4; Lymphocytes % 11.1; MCH 24.8 pg (27.0-33.0); MCHC 31.2 % (32.0-36.0); MCV 80 fL (80-95); MPV 10.2 fL (8.0-11.0); Monocytes % 4.3; Neutrophils % 83.9; Platelet Count 173 10^3/uL (130-400); RBC 5.56 10^6/uL (3.93-5.22); RDW 14.4 % (11.7-14.6); RDW-SD 41.9 fL; WBC 17.49 10^3/uL (4.4-10.8)
[2021-10-12 11:13] LABS: Absolute Monocyte Count 0.75 10^3/uL (0.1-0.8)
[2021-10-12 11:26] LABS: ESR 15 mm/hr (0-20)
[2021-10-12 11:30] LABS: ALT 34 U/L (14-59); AST 19 U/L (15-37); Albumin 3.7 g/dL (3.4-5.0); Alkaline Phosphatase 170 U/L (46-116); Anion Gap 9.5 mmol/L (3-11); BUN 9 mg/dL (7-18); C-Reactive Protein 12.75 mg/dL (0.0-0.3); CO2 26.5 mmol/L (21.0-32.0); Calcium 8.5 mg/dL (8.5-10.1); Chloride 99 mmol/L (98-107); Glucose 114 mg/dL (74-106); Magnesium 1.9 mg/dL (1.8-2.4); Potassium 3.4 mmol/L (3.5-5.1); Sodium 135 mmol/L (136-145); Total Protein 7.7 g/dL (6.4-8.2)
--- NOTE | 2021-10-12 11:31 | DI.RAD_ITS ---
Exam(s) XR TIB/FIB LT EXAM: XR TIB/FIB LT CLINICAL HISTORY: cellulitis, ?necrotizing fasciitis. TECHNIQUE: 2D digital imaging was performed COMPARISON: No exams were available for comparison FINDINGS: BONES: No acute fracture is present. No bony destructive lesion is seen. There degenerative changes o f the the femoral tibial joints. Degenerative changes medial ankle joint. SOFT TISSUE: Mild edema. No foreign body or gas collection. IMPRESSION: Soft tissue edema. No evidence of necrotizing fasciitis DATA REPOSITORY: RADIATION DOSE DELIVERED:
[2021-10-12] MEDS: VANCOMYCIN/WATER (PEG) 2 GM/400 ML BAG IVPB (11:53)
[2021-10-12] MEDS: diphenhydrAMINE 50 MG/ML VIAL IVP (13:03)
[2021-10-12] MEDS: CLINDAMYCIN 600 MG/50 ML BAG 100 MG IVPB (14:20)
[2021-10-12] MEDS: Ibuprofen 600 MG TAB PO (14:20)
[2021-10-12] MEDS: Lactated Ringers 1,000 ML 1000 ML IV (15:02)
--- NOTE | 2021-10-12 15:30 | DI.CT_ITS ---
Exam(s) CT LOWER EXTREMITY LT W EXAM: CT LOWER EXTREMITY LT W CLINICAL HISTORY: soft tissue infection. TECHNIQUE: Imaging Protocol: Axial computed tomography images with coronal and sagittal reformatted images were created and reviewed. CONTRAST MATERIAL: Intravenous: Omnipaque 350 Contrast volume:100 mL contrast route:IV - Oral: No COMPARISON: CR XR TIB/FIB LT from 10/12/2021 FINDINGS: OSSEOUS: No fractures. Degenerative changes in the knee. Small knee joint effusion. No osseous les ions. No evidence of osteomyelitis SOFT TISSUES: Subcutaneous soft tissue edema anteriorly. No drainable fluid collection. IMPRESSION: There is anterior subcutaneous edema but no true fluid collection identified. There are osteoarthritic degenerative changes in the knee and there is a small knee joint effusion. No fracture evident. RADIATION DOSE DELIVERED: 403.3mGy.cm Total DLP DATA REPOSITORY: All CT scans at this facility are submitted to the National Radiology Data Registry (NRDR) Dose Index Registry (DIR) with the [employer] (A[employer]). RADIATION OPTIMIZATION: All CT scans at this facility use at least one of these dose optimization te chniques: automated exposure control; mA and/or kV adjustment per patient size (includes targeted exa ms where dose is matched to clinical indication); or iterative reconstruction.
[2021-10-12] MEDS: Omnipaque 350 MG/ML 100 ML BTL IJ (16:59)
--- NOTE | 2021-10-12 17:14 | DI.VRAD_ITS ---
PROCEDURE INFORMATION: Exam: CT Left Lower Extremity With Contrast; Lower Leg Exam date and time: 10/12/2021 4:47 PM Age: 36 years old Clinical indication: Other: Soft tissue infection TECHNIQUE: Imaging protocol: CT of the Left lower extremity with intravenous contrast was performed. Exam focused on the lower leg. Contrast material: 350; Contrast volume: 100 ml; Contrast route: INTRAVENOUS (IV); COMPARISON: CR XR TIB/FIB LT 10/12/2021 11:20 AM FINDINGS: Bones/joints: Moderate knee joint effusion. Degenerative arthritis in the knee with tricompartment marginal osteophyte formation. Soft tissues: Subcutaneous edema on the anterior aspect of the ashley. No fluid collection identified. Subcutaneous calcifications within the most marked area of edema in the mid ashley. IMPRESSION: 1. Anterior subcutaneous edema. No fluid collection identified 2. Degenerative arthritis in the knee. Dictated and Authenticated by: Ness Delgado MD. Ordering:SIN Andino MD
--- NOTE | 2021-10-12 17:32 | HPE_ITS ---
Date of service: 10/12/21 Time of Service: 17:32 Assessment and Plan Assessment and plan (1) Cellulitis and abscess of left lower extremity: Status: Acute Assessment and plan: 36 year old female with less then 24 hours of erythema to her LLE. [place] Doesnt recall any trauma or cut to her leg. Has had previous Strep infection in the LLE. CT scan reassuring. No air or fluid collection. with her Leukocytosis of >17,000 recommend admission for IV antibiotics. Patient had a reaction to Vancomycin in the ED with severe itching. Will start her on Linezolid History of Present Illness Consults Consult date: 10/12/21 Requesting physician: Thu Mclean Narrative: Patient is a pleasant 36 year old female presenting today with c/c of LLE erythema, warmth, pain, general malaise, fever. She states that yesterday she started having fever. [place] No hx of trauma. No cuts to her leg that she is aware of. She does tell me she had cellulitis of the LLE about 5 years ago. She had to have an incision and drainage done. She believes the Cx came back as strep. She is not a diabetic. She does have a hx of drug use including heroin, mushrooms, lsd. Nothing in the last 24 hours. Workup in the ER showed a Leukocytosis of > 17,000, Lactate is normal. CRP is elevated. CT scan which I reviewed myself today showed some edema in the soft tissue. NO drainable collection. Review of Systems Constitutional Constitutional: Reports fever(s), Denies headache(s), Denies poor appetite and Denies weight loss Eyes Eyes: Denies change in vision ENT Ears, Nose, Mouth, and Throat: Denies dysphagia, Denies headache(s) and Denies hoarseness Cardiovascular Cardiovascular: Denies chest pain, Denies chest pain at rest, Denies irregular heart rhythm, Denies palpitations and Denies dyspnea Respiratory Respiratory: Denies cough and Denies dyspnea Gastrointestinal Gastrointestinal: Reports system reviewed and no additional complaints, except as documented and Denies dysphagia Genitourinary Genitourinary: Reports system reviewed and no additional complaints, except as documented Musculoskeletal Musculoskeletal: Reports system reviewed and no additional complaints, except as documented Integumentary/Breasts Skin/Breast: Reports as per HPI Neurologic Neurologic: Reports system reviewed and no additional complaints, except as documented and Denies headache(s) Endocrine Endocrine: Denies palpitations PFSH All Active Problems (Updated 10/12/21 @ 17:44 by Daniela Camilo MD) Cellulitis and abscess of left lower extremity (Acute) SARS-CoV-2 positive (Acute 08/19/21) Presence of 52 mg levonorgestrel-releasing intrauterine device (IUD) (Acute) Hx of abnormal cervical Pap smear (Acute) 04/2021.+ HPV. Needs repeat Pap 04/2022. Presence of 13.5 mg levonorgestrel-releasing intrauterine device (IUD) (Acute) Dehiscence of incision (Acute) Vaginitis (Acute) Morbid obesity with BMI of 50.0-59.9, adult (Acute) Binge eating disorder (Chronic) IFG (impaired fasting glucose) (Chronic) ADHD (attention deficit hyperactivity disorder), combined type (Chronic) 01/19/2018 Psychiatry consult (Dr. Lucero) Hepatic steatosis (Chronic 08/14/13) Depression (Chronic 02/13/16) Side effects with sertraline Medical History Acute appendicitis Alcohol consumption binge drinking (04/28/15) Elevated alkaline phosphatase level Hyperlipidemia, unspecified Low back pain PCOS (polycystic ovarian syndrome) (10/28/14) Metformin Rx in the past Plantar fasciitis, right Spondylolisthesis S/p surgery Surgical History Back surgery x2 in 2000 For spondylolisthesis, then staph infection complication S/P laparoscopic appendectomy 06/15/21. along with R ovarian cystectomy. Family History Father Essential hypertension Hyperlipidemia Brother Anxiety Brother Autistic spectrum disorder Other Hypothyroidism Social History Smoking/Tobacco Use Status: Never Smoking risk assessment performed?: Yes Alcohol Intake: current Alcohol Intake frequency: a few times a week Drug use: Occasionally Substance use type: crack/cocaine and hallucinogens Details: LSD/Mushrooms/Extasy. 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 [employer] Pets and animals: Yes Pets and animals: cat(s) Sexually active: Yes Do you think of yourself as: bisexual Current gender identity: female What is your relationship status?: never How often do you talk on the phone with friends or family?: three or more times per week How often do you get together with friends or relatives?: three or more times per week Do you belong to any clubs or organized social groups?: no Panel score (0-1 are the most socially isolated patients): 1 What type of physical activity do you participate in: regular exercise Duration: 15-30 minutes/day Frequency: 1-2 times per week Reena/Restorationist: None Special reena needs: No Seatbelt use: sometimes Helmet use: Yes Drive intox or ride w/intox electric lift truck driver: No Working smoke detector in home: Yes Fire extinguisher in home: Yes Carbon monox detector in home: Yes Firearms in home: No Do you feel safe at home: Yes Do you feel safe in your relationship?: Yes Female Reproductive History Menstrual control method: none History History 0 Para Hx # Term Pregnancies Multiple births Hx # Pregnancies Ectopic pregnancies AB induced Hx Number of Living Children AB spontaneous Meds Allergies and Home Medications Allergies Allergy/AdvReac Type Severity Reaction Status Date / Time penicillin V Allergy Mild Swelling, Verified 10/12/21 10:00 rash,itchy face especially around eyes. amoxicillin Allergy Skin Rash Verified 10/12/21 10:00 Home Medications Medication Instructions Recorded Confirmed Type acetaminophen 325 mg tablet 650 mg PO Q4H PRN PRN 01/03/17 10/12/21 Rx (Tylenol) ibuprofen 800 mg tablet 800 mg PO Q8H 08/22/19 10/12/21 History bupropion HCl 150 mg 24 hr tablet, 150 mg PO QAM #90 tab-caps 01/22/21 10/12/21 Rx extended release (Wellbutrin XL) citalopram 20 mg tablet 20 mg PO DAILY #90 tab-caps 01/22/21 10/12/21 Rx cholecalciferol (vitamin D3) 10 10 mcg PO DAILY 06/15/21 10/12/21 History mcg (400 unit) capsule (Vitamin D3) multivitamin 1 tab PO DAILY 06/15/21 10/12/21 History levonorgestrel 20 mcg/24 hours (7 1 device intrauterine ONCE #1 ea 07/02/21 10/12/21 Rx yrs) 52 mg intrauterine device (Mirena) valacyclovir 500 mg tablet 500 mg PO BID #6 tabs 08/10/21 10/12/21 Rx (Valtrex) ergocalciferol (vitamin D2) 1,250 1,250 mcg PO QWEEK 08/21/21 10/12/21 History mcg (50,000 unit) capsule spironolactone 50 mg tablet 50 mg PO BID 08/21/21 10/12/21 History metformin 750 mg tablet,extended 750 mg PO BID 10/12/21 10/12/21 History release 24 hr Exam Const General: cooperative, comfortable and no acute distress Nutritional Appearance: obese Orientation: alert and oriented x3 HENMT Head: normocephalic and atraumatic Resp Effort & Inspection: normal respiratory effort Auscultation: clear to auscultation bilaterally Cardio Rate: regular rate Rhythm: regular rhythm Heart Sounds: no gallops, no murmurs and no rubs GI Inspection: obesity Palpation: soft Extrem Other: LLE- just above the ankle there is an area of erythema. Minimal induration. No crepitus on palpation. No fluid collection on palpation Results Imaging Additional studies: CT scan LLE- reviewed report and imaging Labs Result diagrams: 10/12/21 11:00 10/12/21 11:00 Labs: Laboratory Results - last 24 hr 10/12/21 10/12/21 10/12/21 11:00 11:00 11:00 WBC RBC Hgb Hct MCV MCH MCHC RDW Plt Count MPV Immature Gran % Neutrophils % Lymphocytes % Monocytes % Eosinophils % Basophils % Nucleated RBC % Absolute Neutrophils Absolute Lymphocytes Absolute Monocytes Absolute Eosinophils Absolute Basophils ESR 15 VBG Lactate 1.2 Sodium 135 L Potassium 3.4 L Chloride 99 Carbon Dioxide 26.5 Anion Gap 9.5 BUN 9 Creatinine 1.0 Estimated GFR/1.73 m2 >= 60.00 Glucose 114 H Calcium 8.5 Magnesium 1.9 Total Bilirubin 1.0 AST 19 ALT 34 Alkaline Phosphatase 170 H C-Reactive Protein 12.75 H Total Protein 7.7 Albumin 3.7 COVID-19 Source SARS-CoV-2 (PCR) Influenza Type A (PCR) Influenza Type B (PCR) RSV (PCR) 10/12/21 10/12/21 11:00 17:11 WBC 17.49 H RBC 5.56 H Hgb 13.8 Hct 44.3 MCV 80 MCH 24.8 L MCHC 31.2 L RDW 14.4 Plt Count 173 MPV 10.2 Immature Gran % 0.4 Neutrophils % 83.9 Lymphocytes % 11.1 Monocytes % 4.3 Eosinophils % 0.1 Basophils % 0.2 Nucleated RBC % 0.0 Absolute Neutrophils 14.67 H Absolute Lymphocytes 1.94 Absolute Monocytes 0.75 Absolute Eosinophils 0.02 Absolute Basophils 0.03 ESR VBG Lactate Sodium Potassium Chloride Carbon Dioxide Anion Gap BUN Creatinine Estimated GFR/1.73 m2 Glucose Calcium Magnesium Total Bilirubin AST ALT Alkaline Phosphatase C-Reactive Protein Total Protein Albumin COVID-19 Source Cancelled SARS-CoV-2 (PCR) Cancelled Influenza Type A (PCR) Cancelled Influenza Type B (PCR) Cancelled RSV (PCR) Cancelled Last Vital Signs Temp 99.1 F 10/12/21 15:51 Pulse 97 H 10/12/21 14:15 Resp 19 10/12/21 14:15 BP 138/61 10/12/21 14:15 Pulse Ox 99 10/12/21 14:15 PAWSS Have you Been Recently Intoxicated or Drunk Within the Last 30 days?: Yes Have you Ever Experienced Previous Episodes of Alcohol Withdrawal?: No Have you ever Experienced Withdrawal Seizures?: No Have you ever Experienced Delirium Tremens(DT)s?: No Have you ever undergone Alcohol Rehabilitation Treatment (i.e, inpt ot outpatie nt treatment programs)?: No Have you ever Experienced Blackouts?: Yes Have you ever Combined Alcohol with other Downers within the last 90 days?: No Have you ever Combined Alcohol with any other Substance of Abuse during the last 90 days?: Yes Positive Blood Alcohol level on Presentation? [PCS.BAL]: No Evidence of Increased Autonomic Activity (i.e. HR>120, tremor, sweating, monica tation, nausea)?: No Result: 4
[2021-10-12 17:35] LABS: Source Nasal/Nares
[2021-10-12 18:25] LABS: COVID-19 PCR Negative (Negative)
[2021-10-12] MEDS: LINEZOLID 600 MG/300 ML BAG 300 MG IVPB (19:46)
[2021-10-12] MEDS: Spironolactone 50 MG TAB PO (19:47)
[2021-10-12] MEDS: Docusate Sodium 100 MG CAP PO (19:48)
[2021-10-12] MEDS: traMADol 50 MG TAB PO (22:10)
[2021-10-12] MEDS: Acetaminophen 325 MG TAB 650 MG PO (22:13)
[2021-10-12] MEDS: valACYclovir 500 MG TAB PO (22:13)
[2021-10-13] VITALS (7 sets, daily range): BP systolic 111–156; BP diastolic 74–88; PULSE 75–94; RESP 14–20; TEMP 35.8–39.2; O2SAT 96–97
[2021-10-13] MEDS: Ibuprofen 600 MG TAB PO ×2 (00:34→14:18)
[2021-10-13 07:21] LABS: Abs Immature Grans 0.04 10^3/uL (0.0-0.06); Absolute Basophil Count 0.02 10^3/uL (0.0-0.2); Absolute Eosinophil Count 0.11 10^3/uL (0.0-0.7); Absolute Lymphocyte Count 1.81 10^3/uL (1.2-3.4); Absolute Monocyte Count 0.54 10^3/uL (0.1-0.8); Absolute Neutrophil Count 5.67 10^3/uL (1.2-6.7); Basophils % 0.2; Eosinophils % 1.3; HCT 39.5 % (36.0-46.0); HGB 12.5 g/dL (11.2-15.7); Immature Grans % 0.5; Lymphocytes % 22.1; MCH 25.4 pg (27.0-33.0); MCHC 31.6 % (32.0-36.0); MCV 80 fL (80-95); MPV 10.9 fL (8.0-11.0); Monocytes % 6.6; Neutrophils % 69.3; Platelet Count 132 10^3/uL (130-400); RBC 4.93 10^6/uL (3.93-5.22); RDW 14.6 % (11.7-14.6); RDW-SD 42.4 fL; WBC 8.19 10^3/uL (4.4-10.8)
[2021-10-13 08:04] LABS: C-Reactive Protein 15.28 mg/dL (0.0-0.3)
--- NOTE | 2021-10-13 08:19 | W.PM.PROGNOT ---
Date of Service Date of service: 10/13/21 Time of Service: : Assessment and Plan Assessment and plan (1) Cellulitis and abscess of left lower extremity: Status: Acute Assessment and plan: Leukocytosis has improved Fevers through the night. Blood cultures pending. Continue Linezolid Encouraged warm compresses and ice pack to the area Activity as tolerated. Continue IV antibiotics given fevers, continued erythema and tenderness. Subjective Subjective Interval history since last seen: Patient reports that her RLE continues to be painful when standing. She had fevers through the night. Exam Const General: cooperative, healthy appearing and comfortable Orientation: alert and oriented x3 Resp Effort & Inspection: normal respiratory effort, no audible wheezes and no cough Skin Other: RLE- Outline noted, a small portion of erythema extends superior to the line. No flucutlance noted on exam. Exquistely tender to palpation. Objective Last Vital Signs Temp 35.8 C L 10/13/21 08:00 Pulse 75 10/13/21 08:00 Resp 16 10/13/21 08:00 BP 111/74 10/13/21 08:00 Pulse Ox 96 10/13/21 08:00 Laboratory Results - last 24 hr 10/12/21 10/12/21 10/12/21 11:00 11:00 11:00 WBC RBC Hgb Hct MCV MCH MCHC RDW Plt Count MPV Immature Gran % Neutrophils % Lymphocytes % Monocytes % Eosinophils % Basophils % Nucleated RBC % Absolute Neutrophils Absolute Lymphocytes Absolute Monocytes Absolute Eosinophils Absolute Basophils ESR 15 VBG Lactate 1.2 Sodium 135 L Potassium 3.4 L Chloride 99 Carbon Dioxide 26.5 Anion Gap 9.5 BUN 9 Creatinine 1.0 Estimated GFR/1.73 m2 >= 60.00 Glucose 114 H Calcium 8.5 Magnesium 1.9 Total Bilirubin 1.0 AST 19 ALT 34 Alkaline Phosphatase 170 H C-Reactive Protein 12.75 H Total Protein 7.7 Albumin 3.7 COVID-19 Source SARS-CoV-2 (PCR) Influenza Type A (PCR) Influenza Type B (PCR) RSV (PCR) 10/12/21 10/12/21 10/12/21 11:00 15:45 17:11 WBC 17.49 H RBC 5.56 H Hgb 13.8 Hct 44.3 MCV 80 MCH 24.8 L MCHC 31.2 L RDW 14.4 Plt Count 173 MPV 10.2 Immature Gran % 0.4 Neutrophils % 83.9 Lymphocytes % 11.1 Monocytes % 4.3 Eosinophils % 0.1 Basophils % 0.2 Nucleated RBC % 0.0 Absolute Neutrophils 14.67 H Absolute Lymphocytes 1.94 Absolute Monocytes 0.75 Absolute Eosinophils 0.02 Absolute Basophils 0.03 ESR VBG Lactate Sodium Potassium Chloride Carbon Dioxide Anion Gap BUN Creatinine Estimated GFR/1.73 m2 Glucose Calcium Magnesium Total Bilirubin AST ALT Alkaline Phosphatase C-Reactive Protein Total Protein Albumin COVID-19 Source Nasal/Nares Cancelled SARS-CoV-2 (PCR) Negative Cancelled Influenza Type A (PCR) Cancelled Influenza Type B (PCR) Cancelled RSV (PCR) Cancelled 10/13/21 10/13/21 06:56 06:56 WBC 8.19 RBC 4.93 Hgb 12.5 Hct 39.5 MCV 80 MCH 25.4 L MCHC 31.6 L RDW 14.6 Plt Count 132 MPV 10.9 Immature Gran % 0.5 Neutrophils % 69.3 Lymphocytes % 22.1 Monocytes % 6.6 Eosinophils % 1.3 Basophils % 0.2 Nucleated RBC % 0.0 Absolute Neutrophils 5.67 Absolute Lymphocytes 1.81 Absolute Monocytes 0.54 Absolute Eosinophils 0.11 Absolute Basophils 0.02 ESR VBG Lactate Sodium Potassium Chloride Carbon Dioxide Anion Gap BUN Creatinine Estimated GFR/1.73 m2 Glucose Calcium Magnesium Total Bilirubin AST ALT Alkaline Phosphatase C-Reactive Protein 15.28 H Total Protein Albumin COVID-19 Source SARS-CoV-2 (PCR) Influenza Type A (PCR) Influenza Type B (PCR) RSV (PCR) PAWSS Have you Been Recently Intoxicated or Drunk Within the Last 30 days?: Yes Have you Ever Experienced Previous Episodes of Alcohol Withdrawal?: No Have you ever Experienced Withdrawal Seizures?: No Have you ever Experienced Delirium Tremens(DT)s?: No Have you ever undergone Alcohol Rehabilitation Treatment (i.e, inpt ot outpatient treatment programs)?: No Have you ever Experienced Blackouts?: Yes Have you ever Combined Alcohol with other Downers within the last 90 days?: No Have you ever Combined Alcohol with any other Substance of Abuse during the last 90 days?: Yes Positive Blood Alcohol level on Presentation? [PCS.BAL]: No Evidence of Increased Autonomic Activity (i.e. HR>120, tremor, sweating, agitation, nausea)?: No Result: 4
[2021-10-13 08:39] LABS: Procalcitonin 0.2 ng/mL
[2021-10-13] MEDS: Docusate Sodium 100 MG CAP PO ×2 (08:43→14:18)
[2021-10-13] MEDS: Spironolactone 50 MG TAB PO ×2 (08:43→19:54)
[2021-10-13] MEDS: valACYclovir 500 MG TAB PO ×2 (08:43→19:54)
[2021-10-13] MEDS: Normal Saline Flush 10 ML SYR IVP (08:44)
[2021-10-13] MEDS: LINEZOLID 600 MG/300 ML BAG 300 MG IVPB ×2 (08:44→19:55)
[2021-10-13] MEDS: Enoxaparin 40 MG/0.4 ML SYR SC (08:44)
--- NOTE | 2021-10-13 11:27 | INITIAL_ITS ---
- If Service Date Differs Date of service: 10/13/21 Time of Service: 11:27 Care Management Initial Assess REASON FOR HOSPITALIZATION:: Cellulitis of LLE PAST MEDICAL HISTORY/PAST SURGICAL HISTORY:: All Active Problems. Cellulitis and abscess of left lower extremity (Acute). SARS-CoV-2 positive (Acute 08/19/21). Presence of 52 mg levonorgestrel-releasing intrauterine device (IUD) (Acute). Hx of abnormal cervical Pap smear (Acute). 04/2021.+ HPV. Needs repeat Pap 04/2022. Presence of 13.5 mg levonorgestrel-releasing intrauterine device (IUD) (Acute). Dehiscence of incision (Acute). Vaginitis (Acute). Morbid obesity with BMI of 50.0-59.9, adult (Acute). Binge eating disorder (Chronic). IFG (impaired fasting glucose) (Chronic). ADHD (attention deficit hyperactivity disorder), combined type (Chronic). 01/19/2018 Psychiatry consult (Dr. Lucero). Hepatic steatosis (Chronic 08/14/13). Depression (Chronic 02/13/16). Side effects with sertraline. Medical History. Acute appendicitis. Alcohol consumption binge drinking (04/28/15). Elevated alkaline phosphatase level. Hyperlipidemia, unspecified. Low back pain. PCOS (polycystic ovarian syndrome) (10/28/14). Metformin Rx in the past. Plantar fasciitis, right. Spondylolisthesis. S/p surgery. Surgical History. Back surgery. x2 in 2000. For spondylolisthesis, then staph infection complication. S/P laparoscopic appendectomy. 06/15/21. along with R ovarian cystectomy. PREVIOUS FUNCTIONAL STATUS/SOCIAL/FAMILY SUPPORTS:: Rahel lives in an apartment [place] [facility]. Her parents live nearby, and are very supportive. 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 She is independent at baseline. CURRENT FUNCTIONAL STATUS:: Rahel was sitting up in her chair when CM met with her. She reported that she is feeling good. She is on IV antibiotics, and will likely remain overnight for further observation. Once she can be transitioned to oral antibiotics, she will be ready for discharge. She stated that she does not require any community support. CM will continue to follow. ADVANCE DIRECTIVES:: None on file. Has patient been provided with info about the portal/API?: Yes Did the patient sign up for the portal?: Yes (active) CODE STATUS:: Full Code INSURANCE COVERAGE / FINANCIAL ISSUES:: [employer]/ Financial assist 70% CURRENT HOME/COMMUNITY SERVICES/EQUIPMENT:: No services or equipment. PRIMARY CARE PHYSICIAN:: Yana Freeman POTENTIAL DISCHARGE NEEDS:: follow up appointments PATIENT/FAMILY EDUCATION NEEDS:: Review discharge instructions and limitations, discussion of self care needs including ask me three. ANTICIPATED BARRIERS TO DISCHARGE:: None. TRANSPORTATION:: Via private vehicle by her parents. PLAN:: Rahel will return home once medically cleared. She will follow up with her PCP and discharge plan of care. Her mother will drive her home via private vehicle. CM will continue to follow.
--- NOTE | 2021-10-13 15:55 | CHAPLAIN ---
Rahel and I know one another from pervious jobs. Rahel works for [employer] in [place] and likes her job. Her parents are supportive. She is totally independent at home.
--- NOTE | 2021-10-14 | DI.US_ITS ---
Exam(s) US SOFT TISSUE EXTREMITY EXAM: US SOFT TISSUE EXTREMITY CLINICAL HISTORY: cellulitis LLE, ? abscess. TECHNIQUE: Ultrasound was performed using standard protocol. COMPARISON: CT CT LOWER EXTREMITY LT W from 10/12/2021 CR XR TIB/FIB LT from 10/12/2021 FINDINGS: Sonographic assessment utilizing grayscale and color Doppler imaging was performed and targeted to th e area of clinical concern in the distal anterior lower leg. Anterior skin thickening and edema is noted. There is no drainable collection. IMPRESSION: Edema in the anterior lower leg. No drainable abscess or fluid collection. DATA REPOSITORY:
[2021-10-14 02:23] VITALS: BP 130/71; PULSE 89; RESP 14; TEMP 36.5; O2SAT 96
[2021-10-14] MEDS: Acetaminophen 325 MG TAB 650 MG PO (02:26)
[2021-10-14 05:40] VITALS: TEMP 36.2
[2021-10-14] MEDS: Ibuprofen 600 MG TAB PO (05:47)
[2021-10-14 06:21] LABS: Abs Immature Grans 0.03 10^3/uL (0.0-0.06); Absolute Basophil Count 0.02 10^3/uL (0.0-0.2); Absolute Eosinophil Count 0.33 10^3/uL (0.0-0.7); Absolute Lymphocyte Count 2.42 10^3/uL (1.2-3.4); Absolute Monocyte Count 0.53 10^3/uL (0.1-0.8); Absolute Neutrophil Count 4.23 10^3/uL (1.2-6.7); Basophils % 0.3; Eosinophils % 4.4; HCT 39.9 % (36.0-46.0); HGB 12.7 g/dL (11.2-15.7); Immature Grans % 0.4; MCH 25.1 pg (27.0-33.0); MCHC 31.8 % (32.0-36.0); MCV 79 fL (80-95); MPV 10.6 fL (8.0-11.0); Neutrophils % 55.9; Platelet Count 144 10^3/uL (130-400); RBC 5.06 10^6/uL (3.93-5.22); RDW 14.6 % (11.7-14.6); WBC 7.56 10^3/uL (4.4-10.8)
[2021-10-14 06:38] LABS: C-Reactive Protein 8.21 mg/dL (0.0-0.3)
--- NOTE | 2021-10-14 07:21 | W.PM.PROGNOT ---
Date of Service Date of service: 10/14/21 Time of Service: 07:21 Assessment and Plan Assessment and plan (1) Cellulitis and abscess of left lower extremity: Status: Acute Assessment and plan: Leukocytosis has resolved CRP is improving Fever yesterday afternoon, no fever's through the night Blood cultures pending. Continue Linezolid Encouraged warm compresses and ice pack to the area Encouraged activity OOB and ambulation. Discussed elevating her RLE after activity and applying ice Patient seen and examined. Erythema is much improved Will D/C to home on po antibiotics for 10 days total Follow up in office next week Subjective Subjective Interval history since last seen: Patient reports that she walked and was up in the chair yesterday. This caused increased discomfort in her RLE. She expresses that she is hoping to be d/c home today. She denies any nausea or vomiting. Exam Const General: cooperative and comfortable Orientation: alert and oriented x3 Resp Effort & Inspection: normal respiratory effort, no audible wheezes and no cough Skin Other: R LE- Outline noted, slight improvement in the erythema. The area appears less swollen then yesterday. Continues to be painful with palpation of the lower leg. Objective Last Vital Signs Temp 36.2 C L 10/14/21 05:40 Pulse 89 10/14/21 02:23 Resp 14 10/14/21 02:23 BP 130/71 10/14/21 02:23 Pulse Ox 96 10/14/21 02:23 Laboratory Results - last 24 hr 10/13/21 10/13/21 10/13/21 06:56 06:56 06:56 WBC 8.19 RBC 4.93 Hgb 12.5 Hct 39.5 MCV 80 MCH 25.4 L MCHC 31.6 L RDW 14.6 Plt Count 132 MPV 10.9 Immature Gran % 0.5 Neutrophils % 69.3 Lymphocytes % 22.1 Monocytes % 6.6 Eosinophils % 1.3 Basophils % 0.2 Nucleated RBC % 0.0 Absolute Neutrophils 5.67 Absolute Lymphocytes 1.81 Absolute Monocytes 0.54 Absolute Eosinophils 0.11 Absolute Basophils 0.02 C-Reactive Protein 15.28 H Procalcitonin 0.2 10/14/21 10/14/21 05:31 05:45 WBC 7.56 RBC 5.06 Hgb 12.7 Hct 39.9 MCV 79 L MCH 25.1 L MCHC 31.8 L RDW 14.6 Plt Count 144 MPV 10.6 Immature Gran % 0.4 Neutrophils % 55.9 Lymphocytes % 32.0 Monocytes % 7.0 Eosinophils % 4.4 Basophils % 0.3 Nucleated RBC % 0.0 Absolute Neutrophils 4.23 Absolute Lymphocytes 2.42 Absolute Monocytes 0.53 Absolute Eosinophils 0.33 Absolute Basophils 0.02 C-Reactive Protein 8.21 H Procalcitonin PAWSS Have you Been Recently Intoxicated or Drunk Within the Last 30 days?: Yes Have you Ever Experienced Previous Episodes of Alcohol Withdrawal?: No Have you ever Experienced Withdrawal Seizures?: No Have you ever Experienced Delirium Tremens(DT)s?: No Have you ever undergone Alcohol Rehabilitation Treatment (i.e, inpt ot outpatient treatment programs)?: No Have you ever Experienced Blackouts?: Yes Have you ever Combined Alcohol with other Downers within the last 90 days?: No Have you ever Combined Alcohol with any other Substance of Abuse during the last 90 days?: Yes Positive Blood Alcohol level on Presentation? [PCS.BAL]: No Evidence of Increased Autonomic Activity (i.e. HR>120, tremor, sweating, agitation, nausea)?: No Result: 4
[2021-10-14 07:49] VITALS: BP 136/74; PULSE 69; RESP 16; TEMP 36.3; O2SAT 97
[2021-10-14] MEDS: Enoxaparin 40 MG/0.4 ML SYR SC (07:56)
[2021-10-14] MEDS: Normal Saline Flush 10 ML SYR IVP (07:57)
[2021-10-14] MEDS: Spironolactone 50 MG TAB PO (07:58)
[2021-10-14] MEDS: LINEZOLID 600 MG/300 ML BAG 300 MG IVPB (07:58)
[2021-10-14] MEDS: Docusate Sodium 100 MG CAP PO ×2 (07:58→13:58)
[2021-10-14] MEDS: valACYclovir 500 MG TAB PO (07:59)
--- NOTE | 2021-10-14 15:18 | W.PM.DS.N ---
Date of service: 10/14/21 Time of Service: 15:18 DS: Diagnosis Discharge Diagnosis (1) Cellulitis and abscess of left lower extremity: Status: Deleted Discharge Plan Disposition Patient Disposition: HOME Condition: Improving Discharge Details Reason For Visit: Cellulitis of LLE Admit Date/Time: 10/12/21 17:11 Admit Provider: Daniela Camilo Attending Provider: Daniela Camilo Primary Care Provider: Yana Freeman Hospital Course Hospital Course: Mrs Gilliam is a 36 year old female admitted to the hospital on 10/12 for cellulitis of the LLE which had rapidley progressed since Tuesday. CT revealed no abscess. She had a Leukocytosis of >17,000. CRP elevated at just over 12. Patient started on Linezolid because of a PCN allergy and Vancomycin allergy. PAD #1 erythema was decreased but patient was still having pain and fevers. POD #2 US was done and there still was no drainable pocket. Erythema was much improved and she had had no fevers for over 12 hours. Pain was decreased and CRP was done to just over 8. Patient was discharged home on DS Follow up next week Return to ER or call the office if: Increased pain Increased erythema Discharge Home Meds and New Rx's Prescriptions: New sulfamethoxazole-trimethoprim 800-160 mg tablet 1 tab PO BID Qty: 28 0RF Continued ibuprofen 800 mg tablet 800 mg PO Q8H Mirena 20 mcg/24 hours (7 yrs) 52 mg intrauterine device 1 device intrauterine ONCE Qty: 1 0RF Rx Instructions: as a single dose bupropion HCl [Wellbutrin XL] 150 mg tablet extended release 24 hr 150 mg PO QAM Qty: 90 3RF citalopram 20 mg tablet 20 mg PO DAILY Qty: 90 3RF valacyclovir [Valtrex] 500 mg tablet 500 mg PO BID Qty: 6 3RF spironolactone 50 mg tablet 50 mg PO BID Label Comments: Rx Instructions: 08/20/21 [place] [facility] [place]ocalciferol (vitamin D2) 1,250 mcg (50,000 unit) capsule 1,250 mcg PO QWEEK Rx Instructions: 08/20/21 [place] [facility] [place]aminophen [Tylenol] 325 MG tablet 650 mg PO Q4H PRN PRN0RF multivitamin Tablet 1 tab PO DAILY cholecalciferol (vitamin D3) [Vitamin D3] 10 mcg (400 unit) Capsule 10 mcg PO DAILY metformin 750 mg tablet extended release 24 hr 750 mg PO BID Discharge Instructions Additional Instructions: Activity at Home after surgery: 1. As tolerated Diet, Nutrition, & wound healin. As tolerated Pain Medications: 1. Tylenol 650mg every 6 hours as needed and Ibuprofen 600 mg every 6 hours as needed. You may alternate between the 2 medications every 3 hours Antibiotics: Septra DS 1 tab every 12 hours for the next 12 days For Constipation: 1. Take Milk of Magnesia or MiraLax as needed for constipation Other: 1. You may shower daily. 2. You may use ice and heat as needed for comfort Please call our office if you develop: 1. Fevers >101.5 2. Nausea or Vomiting 3. Worsening pain 4. Increase in Redness or thick discharge from the wounds If after hours please call the Hospital at and ask to speak to the on-call surgeon Referrals: David Hollins MD [ [facility] STAFF PHYSICIAN] - 10/21/21 10:30 am Activity:: Activity as Tolerated Equipment/Supplies:: No Equipment Needed Diet:: As Tolerated Discharge Orders Discharge Orders: Discharge Order (Routine); Ordered 10/14/21 Ordered By: Daniela Camilo DS: Summary Time Spent with Patient providing and/or coordinating discharge services: Less than 30 minutes Status at Discharge Functional status at discharge: independent ambulation Overall status at discharge: patient is back to baseline Mental Status: mental status grossly normal Speech and Movement: speech and movement normal Mood: congruent mood Affect: normal affect Exam Extrem Other: LLE- decreased erythema. NO calor. No fluctuant area Psych Mental Status: mental status grossly normal Speech and Movement: speech and movement normal Mood: congruent mood Affect: normal affect DS: Data Vitals/I&O Vitals and I&O: Vital Signs Temperature 97.3 F L 10/14/21 07:49 Temperature Source Tympanic 10/14/21 07:49 Pulse 69 10/14/21 07:49 Pulse Rhythm Regular 10/14/21 14:51 Pulse 87 10/12/21 16:30 Respiratory Rate 16 10/14/21 07:49 Respiratory Effort Non-Labored 10/14/21 14:51 Respiratory Depth Normal 10/14/21 14:51 Respiratory Pattern Normal 10/14/21 14:51 Blood Pressure 136/74 10/14/21 07:49 Blood Pressure Mean 87 10/12/21 20:00 Blood Pressure Position Supine 10/12/21 20:00 Pulse Oximetry 97 10/14/21 07:49 Oxygen Delivery Method Room Air 10/14/21 07:49 Oxygen Flow Rate 0 10/14/21 07:49 Pain Level 5 10/14/21 05:47 Comment 10/13/21 02:09 Intake & Output 10/13/21 10/14/21 10/14/21 23:59 11:59 23:59 Intake Total 300 / 840 250 / 1110 860 / 1110 Balance 300 / 440 250 / 1110 860 / 1110 Intake: IV 300 / 600 Oral 250 / 1110 860 / 1110 Other: Urine Color Yellow Urine Appearance Clear Clear Clear Comment pt. brings herself to the bathroom independently Voiding Methods Toilet Data Completed and Pending Labs on day of discharge: Labs from last 24 hours 10/14/21 10/14/21 05:45 05:31 WBC 7.56 RBC 5.06 Hgb 12.7 Hct 39.9 MCV 79 L MCH 25.1 L MCHC 31.8 L RDW 14.6 Plt Count 144 MPV 10.6 Immature Gran % 0.4 Neutrophils % 55.9 Lymphocytes % 32.0 Monocytes % 7.0 Eosinophils % 4.4 Basophils % 0.3 Nucleated RBC % 0.0 Absolute Neutrophils 4.23 Absolute Lymphocytes 2.42 Absolute Monocytes 0.53 Absolute Eosinophils 0.33 Absolute Basophils 0.02 C-Reactive Protein 8.21 H Preliminary micro results at discharge 10/12/21 11:20 Blood Culture - Preliminary Blood NO GROWTH 48 HOURS 10/12/21 11:00 Blood Culture - Preliminary Blood NO GROWTH 48 HOURS PFSH All Active Problems (Updated 10/14/21 @ 15:19 by Daniela Camilo MD) Cellulitis (Acute) SARS-CoV-2 positive (Acute 08/19/21) Presence of 52 mg levonorgestrel-releasing intrauterine device (IUD) (Acute) Hx of abnormal cervical Pap smear (Acute) 04/2021.+ HPV. Needs repeat Pap 04/2022. Presence of 13.5 mg levonorgestrel-releasing intrauterine device (IUD) (Acute) Dehiscence of incision (Acute) Vaginitis (Acute) Morbid obesity with BMI of 50.0-59.9, adult (Acute) Binge eating disorder (Chronic) IFG (impaired fasting glucose) (Chronic) ADHD (attention deficit hyperactivity disorder), combined type (Chronic) 01/19/2018 Psychiatry consult (Dr. Lucero) Hepatic steatosis (Chronic 08/14/13) Depression (Chronic 02/13/16) Side effects with sertraline Medical History Acute appendicitis Alcohol consumption binge drinking (04/28/15) Elevated alkaline phosphatase level Hyperlipidemia, unspecified Low back pain PCOS (polycystic ovarian syndrome) (10/28/14) Metformin Rx in the past Plantar fasciitis, right Spondylolisthesis S/p surgery Surgical History Back surgery x2 in 2000 For spondylolisthesis, then staph infection complication S/P laparoscopic appendectomy 06/15/21. along with R ovarian cystectomy. Family History Father Essential hypertension Hyperlipidemia Brother Anxiety Brother Autistic spectrum disorder Other Hypothyroidism Social History Smoking/Tobacco Use Status: Never Smoking risk assessment performed?: Yes Alcohol Intake: current Alcohol Intake frequency: a few times a week Drug use: Occasionally Substance use type: crack/cocaine and hallucinogens Details: LSD/Mushrooms/Extasy. 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 [employer] Pets and animals: Yes Pets and animals: cat(s) Sexually active: Yes Do you think of yourself as: bisexual Current gender identity: female What is your relationship status?: never How often do you talk on the phone with friends or family?: three or more times per week How often do you get together with friends or relatives?: three or more times per week Do you belong to any clubs or organized social groups?: no Panel score (0-1 are the most socially isolated patients): 1 What type of physical activity do you participate in: regular exercise Duration: 15-30 minutes/day Frequency: 1-2 times per week Reena/Adventist: None Special reena needs: No Seatbelt use: sometimes Helmet use: Yes Drive intox or ride w/intox backhaul driver: No Working smoke detector in home: Yes Fire extinguisher in home: Yes Carbon monox detector in home: Yes Firearms in home: No Do you feel safe at home: Yes Do you feel safe in your relationship?: Yes Female Reproductive History Menstrual control method: none History History 0 Para Hx # Term Pregnancies Multiple births Hx # Pregnancies Ectopic pregnancies AB induced Hx Number of Living Children AB spontaneous
[2021-10-14 15:34] VITALS: BP 143/79; PULSE 67; RESP 14; TEMP 36.2; O2SAT 100
--- NOTE | 2021-10-14 16:55 | PDOC.CMDIS ---
- If Service Date Differs Date of service: 10/14/21 Time of Service: 16:55 LACE Index Scoring Tool - Questions: Length of Stay (in days): 2 Acuity (Admit via E.D.?): Yes E.D. Visits: 2 - Answers: Total Score: 7 Risk of Readmission: Low Risk Care Management Discharge Reason for Hospitalization: Cellulitis of LLE Discharge Plan: Rahel returned home today with no new services. Her mother drove her home via private vehicle. She will follow up with her PCP and discharge plan of care. She is happy to be going home. Patient/Family Education Needs: Review discharge instructions and limitations, discussion of self care needs including ask me three.
== END 2021-10-14 16:21 | disposition home or self-care (01) ==
LOC: ER 16:51 → ICU 18:58 → MS 21:05
PROVIDERS: Physician Assistant; Admitting Provider Surgery; Emergency Provider Registered Nurse Emergency; PCP Nurse Practitioner Family; Visit Provider Surgery
DX: L03.116 Cellulitis of left lower limb (principal); Z86.16 Personal history of COVID-19; E66.01 Morbid (severe) obesity due to excess calories; Z68.43 Body mass index [BMI] 50.0-59.9, adult; F90.9 Attention-deficit hyperactivity disorder, unspecified type; Z20.822 Contact with and (suspected) exposure to COVID-19; K76.0 Fatty (change of) liver, not elsewhere classified; R73.01 Impaired fasting glucose; F50.81 Binge eating disorder; F32.A Depression, unspecified; E28.2 Polycystic ovarian syndrome; E78.5 Hyperlipidemia, unspecified; F19.90 Other psychoactive substance use, unspecified, uncomplicated; Z79.84 Long term (current) use of oral hypoglycemic drugs; Z79.899 Other long term (current) drug therapy
CPT/HCPCS: 36415; 76881; 80053; 84145; 85652; 87040; 87635; 87637; 96361; 96365; 96366; 96367; 96372; 96375; 99284; 99285; J1650; 73590; 73701; 83605; 83735; 85025; 86140; G0378; J0131; J1200; J2020; J3490

== ENCOUNTER 2022-02-12 01:30 | Outpatient (CLI) | payer OTHER, SELFPAY ==
[2022-02-12 13:25] LABS: Abs Immature Grans 0.03 10^3/uL (0.0-0.06); Absolute Basophil Count 0.05 10^3/uL (0.0-0.2); Absolute Lymphocyte Count 3.32 10^3/uL (1.2-3.4); Absolute Monocyte Count 0.66 10^3/uL (0.1-0.8); Absolute Neutrophil Count 5.12 10^3/uL (1.2-6.7); Basophils % 0.5; Eosinophils % 2.1; HCT 46.8 % (36.0-46.0); HGB 14.5 g/dL (11.2-15.7); Immature Grans % 0.3; Lymphocytes % 35.4; MCH 24.9 pg (27.0-33.0); MCV 80 fL (80-95); MPV 10.4 fL (8.0-11.0); Neutrophils % 54.7; Platelet Count 204 10^3/uL (130-400); RBC 5.83 10^6/uL (3.93-5.22); RDW 14.2 % (11.7-14.6); WBC 9.38 10^3/uL (4.4-10.8)
[2022-02-12 13:47] LABS: Hemoglobin A1C 6.3 % (<5.7)
[2022-02-12 13:58] LABS: ALT 31 U/L (14-59); AST 20 U/L (15-37); Albumin 3.6 g/dL (3.4-5.0); Alkaline Phosphatase 150 U/L (46-116); BUN 12 mg/dL (7-18); Bilirubin, Total 0.5 mg/dL (0.2-1.0); CREATININE 0.8 mg/dL (0.55-1.02); Calcium 8.5 mg/dL (8.5-10.1); Chloride 103 mmol/L (98-107); Cholesterol 196 mg/dL (<200); Estimated GFR 99.09 (mL/min/1.73m2); Glucose 127 mg/dL (74-106); HDL Cholesterol 22 mg/dL (40-60); Potassium 3.6 mmol/L (3.5-5.1); Sodium 138 mmol/L (136-145); Total Protein 7.1 g/dL (6.4-8.2); Triglyceride 409 mg/dL (<150)
[2022-02-12 14:09] LABS: LDL CHOLESTEROL 112 mg/dL (<100)
== END 2022-02-12 01:31 | disposition home or self-care (01) ==
LOC: LBO 01:31
PROVIDERS: PCP Nurse Practitioner Family; Visit Provider Nurse Practitioner Family
DX: K76.0 Fatty (change of) liver, not elsewhere classified (principal); R73.01 Impaired fasting glucose; E78.5 Hyperlipidemia, unspecified
CPT/HCPCS: 36415; 80053; 80061; 83721; 83036; 85025

== ENCOUNTER 2022-12-10 15:13 | Outpatient (REF) | payer OTHER, SELFPAY ==
[2022-12-13 13:22] LABS: Chlamydia Result Negative (Negative); GC Result Negative (Negative)
== END 2022-12-10 15:14 | disposition home or self-care (01) ==
LOC: LBO 15:13
PROVIDERS: PCP Nurse Practitioner Family; Visit Provider Emergency Medicine
DX: J39.2 Other diseases of pharynx (principal)
CPT/HCPCS: 87491; 87591

== ENCOUNTER 2023-03-07 14:17 | Outpatient (REF) | payer OTHER, SELFPAY ==
--- NOTE | 2023-03-07 13:30 | PAPFT_PTH ---
PATIENT: Rahel Gilliam LOC: [facility] U#:[id number] AGE/SX: 37/F ROOM: RE03/07/[address]: April Franco : 1985 BED: DIS: 03/07/2023 SPEC #: [id number] RECD: 03/07/23 17:43 STATUS: GERALDNoemi REQ #: [id number] SEAN: 03/07/23 13:[address]: April Franco DEPT: [facility] Cytology RECD BY: Blanca Montgomery ENTERED: 03/07/23 17:44 SP TYPE: PAPFT OTHR DR: Yana Freeman APRN Tissues: 1 - CX/ENDOCX FOR PAP SMEARS Procedures: PAP THIN PREP/UVM Screening HPV DNA PROBE Comments: [id number]
[2023-03-09 12:59] LABS: Chlamydia Result Negative (Negative); GC Result Negative (Negative)
== END 2023-03-07 14:18 | disposition home or self-care (01) ==
LOC: LBN 14:17
PROVIDERS: PCP Nurse Practitioner Family; Visit Provider Advanced Practice Midwife
DX: N89.8 Other specified noninflammatory disorders of vagina (principal); N94.10 Unspecified dyspareunia
CPT/HCPCS: 87491; 87591; 88142; 87480; 87510; 87624; 87660

== ENCOUNTER 2023-04-29 02:49 | Outpatient (CLI) | payer OTHER, SELFPAY ==
[2023-04-29 11:08] LABS: Abs Immature Grans 0.03 10^3/uL (0.0-0.06); Absolute Basophil Count 0.02 10^3/uL (0.0-0.2); Absolute Eosinophil Count 0.13 10^3/uL (0.0-0.7); Absolute Lymphocyte Count 3.24 10^3/uL (1.2-3.4); Absolute Monocyte Count 0.41 10^3/uL (0.1-0.8); Absolute Neutrophil Count 3.54 10^3/uL (1.2-6.7); Basophils % 0.3; Eosinophils % 1.8; HCT 45.1 % (36.0-46.0); HGB 14.5 g/dL (11.2-15.7); Immature Grans % 0.4; MCH 25.8 pg (27.0-33.0); MCHC 32.2 % (32.0-36.0); MCV 80 fL (80-95); MPV 9.6 fL (8.0-11.0); Monocytes % 5.6; Neutrophils % 47.9; Platelet Count 160 10^3/uL (130-400); RBC 5.62 10^6/uL (3.93-5.22); RDW 13.3 % (11.7-14.6); RDW-SD 38.7 fL; WBC 7.37 10^3/uL (4.4-10.8)
[2023-04-29 11:18] LABS: Hemoglobin A1C 6.8 % (<5.7)
[2023-04-29 11:42] LABS: ALT 46 U/L (14-59); AST 30 U/L (15-37); Albumin 3.6 g/dL (3.4-5.0); Alkaline Phosphatase 152 U/L (46-116); Anion Gap 6.3 mmol/L (3-11); BUN 7 mg/dL (7-18); Bilirubin, Total 0.6 mg/dL (0.2-1.0); CO2 29.7 mmol/L (21.0-32.0); CREATININE 0.8 mg/dL (0.55-1.02); Calcium 8.6 mg/dL (8.5-10.1); Calculated LDL 89 mg/dL (<100); Chloride 106 mmol/L (98-107); Cholesterol 159 mg/dL (<200); Estimated GFR 98.48 (mL/min/1.73m2); Glucose 123 mg/dL (74-106); HDL Cholesterol 27 mg/dL (40-60); Potassium 3.8 mmol/L (3.5-5.1); Sodium 142 mmol/L (136-145); Total Protein 7.1 g/dL (6.4-8.2); Triglyceride 215 mg/dL (<150)
[2023-04-29 12:18] LABS: Vitamin D 25 Total 16.8 ng/mL (30-100)
== END 2023-04-29 02:50 | disposition home or self-care (01) ==
LOC: LBO 02:49
PROVIDERS: PCP Nurse Practitioner Family; Visit Provider Nurse Practitioner Family
DX: E55.9 Vitamin D deficiency, unspecified (principal); K76.0 Fatty (change of) liver, not elsewhere classified; R73.01 Impaired fasting glucose; E78.5 Hyperlipidemia, unspecified
CPT/HCPCS: 36415; 80053; 80061; 82306; 83036; 85025

== ENCOUNTER 2023-10-03 11:35 | Outpatient (REF) | payer OTHER, SELFPAY | END 2023-10-03 11:36 | disposition home or self-care (01) | LOC: LBN 11:35 | PROVIDERS: PCP Nurse Practitioner Family; Visit Provider Advanced Practice Midwife | DX: N89.8 Other specified noninflammatory disorders of vagina (principal) | CPT/HCPCS: 87480; 87510; 87660 ==

== ENCOUNTER 2023-10-27 14:58 | Outpatient (REF) | payer OTHER, SELFPAY | END 2023-10-27 14:59 | disposition home or self-care (01) | LOC: LBN 14:58 | PROVIDERS: PCP Nurse Practitioner Family; Visit Provider Physician Assistant | DX: N39.0 Urinary tract infection, site not specified (principal) | CPT/HCPCS: 87077; 87086; 87186 ==

== ENCOUNTER 2023-11-07 22:24 | Outpatient (REF) | payer OTHER, SELFPAY | END 2023-11-07 22:25 | disposition home or self-care (01) | LOC: NCHCN 22:24 | PROVIDERS: PCP Nurse Practitioner Family; Visit Provider Physician Assistant | DX: R30.0 Dysuria (principal); N89.8 Other specified noninflammatory disorders of vagina | CPT/HCPCS: 87480; 87510; 87660 ==

== ENCOUNTER 2024-02-22 15:11 | Outpatient (REF) | payer OTHER, SELFPAY ==
[2024-02-26 11:57] LABS: Chlamydia Result Negative (Negative); GC Result Negative (Negative)
[2024-02-27 10:03] LABS: Syphilis Serology (RPR) Negative (Negative)
[2024-02-27 11:53] LABS: HIV-1/2 Ag & Ab Screen Negative (Negative)
[2024-02-27 12:34] LABS: Hepatitis C Ab w Rflx HCV PCR Negative (Negative)
== END 2024-02-22 15:12 | disposition home or self-care (01) ==
LOC: LBN 15:11
PROVIDERS: PCP Nurse Practitioner Family; Visit Provider Nurse Practitioner Family
DX: Z11.3 Encounter for screening for infections with a predominantly sexual mode of transmission (principal); R30.0 Dysuria
CPT/HCPCS: 86803; 87389; 87491; 87591; 86592; 87480; 87510; 87660

== ENCOUNTER 2024-07-27 02:54 | Outpatient (CLI) | payer OTHER, SELFPAY ==
[2024-07-27 08:56] LABS: ALT 49 U/L (14-59); AST 29 U/L (15-37); Alkaline Phosphatase 115 U/L (46-116); Anion Gap 7.2 mmol/L (3-11); BUN 8 mg/dL (7-18); Bilirubin, Total 0.9 mg/dL (0.2-1.0); CO2 29.8 mmol/L (21.0-32.0); CREATININE 0.7 mg/dL (0.55-1.02); Calcium 8.6 mg/dL (8.5-10.1); Calculated LDL 82 mg/dL (<100); Chloride 105 mmol/L (98-107); Cholesterol 150 mg/dL (<200); Estimated GFR 114.88 (mL/min/1.73m2); Glucose 95 mg/dL (74-106); HDL Cholesterol 27 mg/dL (>or=50); Potassium 3.8 mmol/L (3.5-5.1); Sodium 142 mmol/L (136-145); TSH (W/Ref FT4) 1.76 uIU/mL (0.36-3.74); Total Protein 7.3 g/dL (6.4-8.2); Triglyceride 207 mg/dL (<150)
== END 2024-07-27 02:55 | disposition home or self-care (01) ==
LOC: LBO 02:54
PROVIDERS: PCP Nurse Practitioner Family; Visit Provider Nurse Practitioner
DX: E66.9 Obesity, unspecified (principal); E78.5 Hyperlipidemia, unspecified; E11.9 Type 2 diabetes mellitus without complications; K76.0 Fatty (change of) liver, not elsewhere classified
CPT/HCPCS: 36415; 80053; 80061; 84443

== ENCOUNTER 2025-01-21 08:53 | Outpatient (CLI) | payer OTHER, SELFPAY ==
[2025-01-21 22:28] LABS: HIV-1/2 Ag & Ab Screen Negative (Negative)
[2025-01-21 22:38] LABS: HBs Antibody, Qual Positive (See Note); HBs Antibody, Quant 10.3 mIU/mL (See Note); Hepatitis C Ab w Rflx HCV PCR Negative (Negative)
[2025-01-22 09:24] LABS: Syphilis Serology (RPR) Negative (Negative)
== END 2025-01-21 08:54 | disposition home or self-care (01) ==
LOC: LBO 08:53
PROVIDERS: PCP Nurse Practitioner Adult Health; Visit Provider Obstetrics & Gynecology
DX: Z11.3 Encounter for screening for infections with a predominantly sexual mode of transmission (principal)
CPT/HCPCS: 36415; 86704; 86706; 86803; 87340; 87389; 86592

== ENCOUNTER 2025-01-21 09:01 | Outpatient (REF) | payer OTHER, SELFPAY ==
[2025-01-23 12:09] LABS: Chlamydia Result Invalid (Negative); GC Result Invalid (Negative)
== END 2025-01-21 09:02 | disposition home or self-care (01) ==
LOC: LBN 09:01
PROVIDERS: PCP Nurse Practitioner Adult Health; Visit Provider Obstetrics & Gynecology
DX: N93.0 Postcoital and contact bleeding (principal)
CPT/HCPCS: 87491; 87591